=== PATIENT | female | born 1990 | race Caucasian/White ===

== ENCOUNTER 2018-05-16 10:51 | Outpatient (CLI) | payer BC, SELFPAY ==
[2018-05-16 12:31] LABS: ALT 15 U/L (12-78); AST 12 U/L (15-37); Albumin 3.9 g/dL (3.4-5.0); Alkaline Phosphatase 43 U/L (46-116); BUN 15 mg/dL (7-18); Bilirubin, Total 0.5 mg/dL (0.2-1.0); CREATININE 0.75 mg/dL (0.55-1.02); Calcium 9.1 mg/dL (8.5-10.1); Chloride 105 mmol/L (98-107); Cholesterol 233 mg/dL (50-200); Glucose 83 mg/dL (70-100); HDL Cholesterol 64 mg/dL (40-60); LDL CHOLESTEROL 154 mg/dL (<100); Potassium 4.3 mmol/L (3.5-5.1); Sodium 140 mmol/L (136-145); TSH (W/Ref FT4) 1.19 uIU/mL (0.358-3.74); Triglyceride 55 mg/dL (30-150)
== END 2018-05-16 11:11 ==
PROVIDERS: PCP Internal Medicine; Visit Provider Obstetrics & Gynecology Gynecology
DX: I10 Essential (primary) hypertension (principal); N92.6 Irregular menstruation, unspecified
CPT/HCPCS: 36415; 80053; 80061; 83721; 84443

== ENCOUNTER 2019-01-21 10:28 | Outpatient (CLI) | payer OTHER, SELFPAY ==
[2019-01-23 16:51] LABS: Antimullerian Hormone 2.9 ng/mL (0.9-9.5)
== END 2019-01-21 10:48 ==
PROVIDERS: PCP Internal Medicine; Visit Provider Obstetrics & Gynecology Gynecology
DX: N93.9 Abnormal uterine and vaginal bleeding, unspecified (principal)
CPT/HCPCS: 36415; 83520

== ENCOUNTER 2019-01-22 02:02 | Outpatient (CLI) | payer OTHER, SELFPAY ==
--- NOTE | 2019-01-22 14:46 | DI.US_ITS ---
EXAM: US THYROID CLINICAL HISTORY: enlarged thyroid, E04.9 TECHNIQUE: Ultrasound performed using standard protocol. COMPARISON: PELVIS TRANSVAG from 02/17/2016 FINDINGS: Ultrasound examination of the thyroid was performed according to the usual protocol. Thyroid parench yma appears mildly heterogeneous with no focal mass. Right thyroid lobe measures 42 x 17 x 18 millim eters and left thyroid lobe measures 39 x 15 x 13 millimeters. The isthmus is 4-5 millimeters in thi ckness. IMPRESSION: Mildly enlarged, mildly heterogeneous thyroid gland. No focal mass.
== END 2019-01-22 02:22 ==
PROVIDERS: PCP Internal Medicine; Visit Provider Obstetrics & Gynecology Gynecology
DX: E04.9 Nontoxic goiter, unspecified (principal)
CPT/HCPCS: 76536

== ENCOUNTER 2019-02-25 15:40 | Outpatient (CLI) | payer OTHER, SELFPAY ==
[2019-02-25 17:15] LABS: HCG Quant, Pregnancy 1389 mIU/mL (1-3)
== END 2019-02-25 16:00 ==
PROVIDERS: PCP Internal Medicine; Visit Provider Obstetrics & Gynecology Gynecology
DX: O20.0 Threatened abortion (principal)
CPT/HCPCS: 36415; 84702

== ENCOUNTER 2019-04-10 11:06 | Outpatient (REF) | payer OTHER, SELFPAY ==
[2019-04-10 12:53] LABS: *AMPHETAMINES SCREEN URINE Negative (Negative); *BARBITURATES SCREEN URINE Negative (Negative); *BENZODIAZEPINES SCREEN URINE Negative (Negative); Cannabinoids THC Negative (Negative); Cocaine Screen,Urine Negative (Negative); METHADONE URINE SCREEN Negative (Negative); OPIATES URINE SCREEN Negative (Negative)
[2019-04-10 12:56] LABS: Tricyclic Antidepressants Negative (Negative)
[2019-04-16 10:56] LABS: Buprenorphine Negative; Norbuprenorphine Negative
== END 2019-04-10 11:26 ==
LOC: LBN 11:06
PROVIDERS: PCP Internal Medicine; Visit Provider Advanced Practice Midwife
DX: Z34.91 Encounter for supervision of normal pregnancy, unspecified, first trimester (principal)
CPT/HCPCS: 80307; 87086

== ENCOUNTER 2019-04-15 11:41 | Outpatient (CLI) | payer OTHER, SELFPAY ==
[2019-04-15 12:23] LABS: Abs Immature Grans 0.02 k/cumm (0.0-0.09); Absolute Basophil Count 0.04 k/cumm (0.0-0.2); Absolute Eosinophil Count 0.09 k/cumm (0.0-0.7); Absolute Lymphocyte Count 1.65 k/cumm (1.2-3.4); Absolute Monocyte Count 0.64 k/cumm (0.11-0.7); Absolute Neutrophil Count 7.13 k/cumm (1.2-6.7); Basophils % 0.4; Eosinophils % 0.9; HCT 37.2 % (36.0-46.0); Immature Grans % 0.2 %; Lymphocytes % 17.2; Mean Corp. HGB Concentration 34.9 g/dL (32.0-36.0); Mean Corpuscular Hemoglobin 30.2 pg (27.0-33.0); Mean Corpuscular Volume 86.3 fL (80-95); Mean Platelet Volume 10.1 fL (8.0-11.0); Monocytes % 6.7; Neutrophils % 74.6; Platelet Count 235 x1000/uL (130-400); RBC 4.31 m/cumm (4.00-5.20); RBC Distribution Width 13.2 % (11.7-14.6); White Blood Cell Count 9.57 k/cumm (4.4-10.8)
[2019-04-16 09:33] LABS: Hepatitis B Surface Ag Negative (Negative)
[2019-04-16 11:08] LABS: HIV-1/2 Ag & Ab Screen Negative (Negative); Hepatitis C Ab w Rflx HCV PCR Negative (Negative)
[2019-04-16 12:02] LABS: Varicella IgG Antibody Positive (See Note)
[2019-04-16 12:46] LABS: Rubella IgG Ab (UVM) Negative (See Note)
[2019-04-16 15:05] LABS: Syphilis Total Ab w/Reflex Nonreactive (Nonreactive)
== END 2019-04-15 12:01 ==
PROVIDERS: PCP Internal Medicine; Visit Provider Obstetrics & Gynecology Gynecology
DX: Z34.91 Encounter for supervision of normal pregnancy, unspecified, first trimester (principal); Z11.4 Encounter for screening for human immunodeficiency virus [HIV]; Z11.59 Encounter for screening for other viral diseases; Z01.84 Encounter for antibody response examination
CPT/HCPCS: 36415; 86787; 86803; 86850; 86900; 86901; 87340; 87389; 85025; 86762; 86780

== ENCOUNTER 2019-05-08 11:31 | Outpatient (REF) | payer OTHER, SELFPAY ==
[2019-05-09 13:30] LABS: Chlamydia Result Negative (Negative); GC Result Negative (Negative)
== END 2019-05-08 11:51 ==
LOC: LBN 11:31
PROVIDERS: PCP Internal Medicine; Visit Provider Obstetrics & Gynecology
DX: Z34.92 Encounter for supervision of normal pregnancy, unspecified, second trimester (principal); Z11.3 Encounter for screening for infections with a predominantly sexual mode of transmission
CPT/HCPCS: 87491; 87591

== ENCOUNTER 2019-06-06 02:10 | Outpatient (CLI) | payer OTHER, SELFPAY ==
--- NOTE | 2019-06-06 09:45 | DI.US_ITS ---
EXAM: US OB 2-3 TRIMESTER CLINICAL HISTORY: , Z34.90, survey TECHNIQUE: Ultrasound performed using standard protocol. COMPARISON: US THYROID from 01/22/2019 FINDINGS: Ob ultrasound was performed utilizing 2nd trimester protocol. biometry is consistent with gest ational age 19 weeks 3 days and EDC of 10/28/2019. Placenta is posterior and there is no evidence of placenta previa. There is a normal quantity of amniotic fluid. anomaly screen is within normal limits as per the attached checklist. cardiac rate is 158 BPM. IMPRESSION: DATA REPOSITORY:
== END 2019-06-06 02:30 ==
PROVIDERS: PCP Internal Medicine; Visit Provider Obstetrics & Gynecology
DX: Z34.92 Encounter for supervision of normal pregnancy, unspecified, second trimester (principal); Z3A.19 19 weeks gestation of pregnancy
CPT/HCPCS: 76805

== ENCOUNTER 2019-08-08 13:56 | Outpatient (CLI) | payer OTHER, SELFPAY ==
[2019-08-08 14:59] LABS: HGB 12.2 g/dL (12.0-15.5); Mean Corp. HGB Concentration 33.9 g/dL (32.0-36.0); Mean Corpuscular Hemoglobin 30.7 pg (27.0-33.0); Mean Corpuscular Volume 90.5 fL (80-95); Mean Platelet Volume 10.3 fL (8.0-11.0); Platelet Count 244 x1000/uL (130-400); RBC 3.98 m/cumm (4.00-5.20); RBC Distribution Width 12.9 % (11.7-14.6); White Blood Cell Count 13.65 k/cumm (4.4-10.8)
[2019-08-08 15:12] LABS: Glucose,1 Hr (Glucola) 121 mg/dL (80-140)
== END 2019-08-08 14:16 ==
PROVIDERS: PCP Internal Medicine; Visit Provider Obstetrics & Gynecology Gynecology
DX: Z34.93 Encounter for supervision of normal pregnancy, unspecified, third trimester (principal)
CPT/HCPCS: 82950; 85027

== ENCOUNTER 2019-08-21 10:50 | Outpatient (REF) | payer OTHER, SELFPAY ==
[2019-08-21 11:11] LABS: Abs Immature Grans 0.12 k/cumm (0.0-0.09); Absolute Basophil Count 0.02 k/cumm (0.0-0.2); Absolute Eosinophil Count 0.06 k/cumm (0.0-0.7); Absolute Monocyte Count 0.72 k/cumm (0.11-0.7); Basophils % 0.2; Eosinophils % 0.5; HCT 33.7 % (36.0-46.0); HGB 11.5 g/dL (12.0-15.5); Immature Grans % 1.1 %; Lymphocytes % 13.4; Mean Corp. HGB Concentration 34.1 g/dL (32.0-36.0); Mean Corpuscular Hemoglobin 30.5 pg (27.0-33.0); Mean Corpuscular Volume 89.4 fL (80-95); Mean Platelet Volume 10.3 fL (8.0-11.0); Monocytes % 6.4; Neutrophils % 78.4; Platelet Count 227 x1000/uL (130-400); RBC 3.77 m/cumm (4.00-5.20); RBC Distribution Width 12.9 % (11.7-14.6); White Blood Cell Count 11.23 k/cumm (4.4-10.8)
[2019-08-21 11:24] LABS: ALT 29 U/L (14-59); AST 14 U/L (15-37); Albumin 2.7 g/dL (3.4-5.0); Alkaline Phosphatase 69 U/L (46-116); BUN 9 mg/dL (7-18); Bilirubin, Total 0.2 mg/dL (0.2-1.0); Calcium 8.9 mg/dL (8.5-10.1); Chloride 104 mmol/L (98-107); Glucose 117 mg/dL (74-106); Potassium 4.1 mmol/L (3.5-5.1); Sodium 136 mmol/L (136-145); Total Protein 6.2 g/dL (6.4-8.2)
[2019-08-21 12:51] LABS: PROTEIN 26.1 mg/dL
[2019-08-21 12:55] LABS: COMMENT (LAB VIEW ONLY) 184.06 mg/dL; Prot/Crea Ur Ratio 0.14
== END 2019-08-21 11:10 ==
LOC: LBN 10:50
PROVIDERS: PCP Internal Medicine; Visit Provider Obstetrics & Gynecology
DX: O13.3 Gestational [pregnancy-induced] hypertension without significant proteinuria, third trimester (principal)
CPT/HCPCS: 80053; 82565; 84156; 85025

== ENCOUNTER 2019-09-01 01:08 | Outpatient (CLI) | payer OTHER, SELFPAY ==
--- NOTE | 2019-09-01 13:00 | DI.US_ITS ---
EXAM: US OB DEANN WEIGHT CLINICAL HISTORY: Growth and DEANN, GESTATIONAL HTN, O13.9. TECHNIQUE: Transabdominal obstetrical ultrasound performed. COMPARISON: US US OB 2-3 TRIMESTER from 06/06/2019 FINDINGS: Transabdominal obstetrical ultrasound performed. FINDINGS: Number of fetuses: One. position: Vertex. heart rate: 168 bpm. Placental location: Posterior. No evidence of previa. BIOMETRIC DATA: BPD 82 millimeters, 30 2 weeks 6 days HC: 298 millimeters, 33 weeks 0 days AC: 288 millimeters, 32 weeks 5 days FL: 63 millimeters, 32 weeks 5 days EFW: 2050 grms 82 % Composite Age: 32 weeks 6 days EDC: 21 October 2019 Amniotic fluid index: 19.1 cm. Amount of fluid is within normal limits. ANATOMICAL SURVEY: Within normal limits. IMPRESSION: size measurements are slightly above the expected range. DATA REPOSITORY:
== END 2019-09-01 01:28 ==
PROVIDERS: PCP Internal Medicine; Visit Provider Obstetrics & Gynecology
DX: O13.3 Gestational [pregnancy-induced] hypertension without significant proteinuria, third trimester (principal); O26.843 Uterine size-date discrepancy, third trimester; Z3A.32 32 weeks gestation of pregnancy
CPT/HCPCS: 76816

== ENCOUNTER 2019-10-03 03:54 | Outpatient (CLI) | payer OTHER, SELFPAY ==
--- NOTE | 2019-10-03 07:30 | DI.US_ITS ---
EXAM: US OB DEANN WEIGHT CLINICAL HISTORY: Size greater than dates,Z34.90 TECHNIQUE: Ultrasound performed using standard protocol. COMPARISON: US US OB DEANN WEIGHT from 09/01/2019 FINDINGS: Ob ultrasound was performed utilizing 3rd trimester protocol. biometry is consistent with gest ational age of 37 weeks 0 days and an EDC October 23. The estimated weight is 3118 grams which is at the 80th percentile for predicted gestational ag e. Placenta is posterior with no placenta previa. There is visually a normal quantity of amniotic fluid and the DEANN is 19. Fetus is in cephalic presentation. heart rate is 147 BPM. IMPRESSION: DATA REPOSITORY:
== END 2019-10-03 04:14 ==
PROVIDERS: PCP Internal Medicine; Visit Provider Obstetrics & Gynecology
DX: O26.843 Uterine size-date discrepancy, third trimester
CPT/HCPCS: 76816

== ENCOUNTER 2019-10-03 15:12 | Outpatient (REF) | payer OTHER, SELFPAY ==
[2019-10-03 16:16] LABS: *AMPHETAMINES SCREEN URINE Negative (Negative); *BARBITURATES SCREEN URINE Negative (Negative); *BENZODIAZEPINES SCREEN URINE Negative (Negative); Cannabinoids THC Negative (Negative); Cocaine Screen,Urine Negative (Negative); METHADONE URINE SCREEN Negative (Negative); OPIATES URINE SCREEN Negative (Negative)
[2019-10-03 16:32] LABS: Tricyclic Antidepressants Negative (Negative)
[2019-10-10 12:51] LABS: Buprenorphine Negative; Norbuprenorphine Negative
== END 2019-10-03 15:32 ==
LOC: LBN 15:12
PROVIDERS: PCP Internal Medicine; Visit Provider Obstetrics & Gynecology Gynecology
DX: Z34.90 Encounter for supervision of normal pregnancy, unspecified, unspecified trimester (principal)
CPT/HCPCS: 80307; 87081

== ENCOUNTER 2019-10-09 10:44 | Outpatient (CLI) | payer OTHER, SELFPAY | END 2019-10-09 11:04 | PROVIDERS: PCP Internal Medicine; Visit Provider Obstetrics & Gynecology | DX: O13.3 Gestational [pregnancy-induced] hypertension without significant proteinuria, third trimester (principal); Z3A.36 36 weeks gestation of pregnancy | CPT/HCPCS: 59025 ==

== ENCOUNTER 2019-10-11 09:25 | Outpatient (CLI) | payer OTHER, SELFPAY | END 2019-10-11 09:45 | PROVIDERS: PCP Internal Medicine; Visit Provider Obstetrics & Gynecology | DX: O47.1 False labor at or after 37 completed weeks of gestation (principal); Z3A.37 37 weeks gestation of pregnancy | CPT/HCPCS: 59025 ==

== ENCOUNTER 2019-10-16 09:27 | Outpatient (CLI) | payer OTHER, SELFPAY | END 2019-10-16 09:47 | PROVIDERS: PCP Internal Medicine; Visit Provider Obstetrics & Gynecology | DX: O13.3 Gestational [pregnancy-induced] hypertension without significant proteinuria, third trimester (principal); Z3A.37 37 weeks gestation of pregnancy | CPT/HCPCS: 59025 ==

== ENCOUNTER 2019-10-17 15:24 | Inpatient (IN) | payer OTHER, MEDICAID, SELFPAY ==
--- NOTE | 2019-10-17 16:55 | W.PM.HP.N ---
Date of service: 10/17/19 Time of Service: 16:55 Assessment and Plan Assessment and plan (1) Gestational hypertension: Status: Acute (2) : Status: Acute Assessment and plan: 29-year-old 1 para 0 with intrauterine gestation at 38 weeks. Gestational hypertension. Will begin labor induction at term with cervical ripening followed by Pitocin augmentation. Will obtain baseline laboratory studies including CBC, CMP, urine protein creatinine ratio and COVID-19 testing. The risks and benefits of labor induction versus maintenance of were explained to the patient and consent was obtained. We do lengthy conversation regarding pain management during labor and appropriate therapies. My anticipation would be for cervical ripening through the evening tonight and Pitocin augmentation of labor as needed tomorrow. History of Present Illness History of Present Illness Chief Complaint: Labor induction due to gestational hypertension at 38 weeks Review of Systems Narrative: Denies signs or symptoms of preeclampsia. Good activity. Occasional irregular uterine contractions. Normal discomforts of . No vaginal bleeding or loss of fluid All systems reviewed & are unremarkable except as noted in HPI and below PFSH Medical History Abnormal uterine bleeding (AUB) (Chronic) 2013 Depo 2014 Diagnostic laparoscopy. Seasonique> OCPs>Mirena, 05/2016 Mirena removed. Continuous OCPs 09/2017 formulation of OCPs changed x2. prefers monthly withdrawal bleed. Acute pain in female pelvis (Resolved 02/22/16) Anxiety (Chronic 05/30/17) ASCUS with positive high risk HPV (Acute) Asthma (Resolved) does not need inhalers. Chronic pelvic pain in female (Chronic 03/17/16) Dysmenorrhea (Resolved) longstanding. Mirena IUD in place. Continues to have menses. Encounter for surveillance of contraceptive pills (Resolved 10/12/17) Endometriosis determined by laparoscopy (Chronic 01/27/16) 01/2015 Dr [facility]. Fulguration of stage ? 1 peritoneal endometriosis implants. 2017. operative laparoscopy. Fulguration of stage 1 lesions. 06/2016. Continuous active OCPs. Essential hypertension (Resolved 09/07/17) Fever of unknown origin (Resolved 08/21/17) 2016. Neg w/u for infectious etiology. Sx subsided after 1+ monthss. Gestational hypertension (Acute) Headache (Resolved) in pt's PMHx it is described as a migraine. Migraine without status migrainosus, not intractable (Chronic 01/27/16) Mild intermittent asthma without complication (Chronic 01/27/16) Pelvic pain (Resolved) 2014 had diagnostic laparoscopy - stage 1 endometriosis 02/2016 repeat diagnostic laparoscopy. Nl pelvis, nl fallopian tubes. 05/2016 repeat laparoscopy in [place]. Mild disease. Began continuous OCPs. Surgical History Appendectomy (Resolved 08/24/02) Diagnostic Laproscopy (Chronic 04/08/14) 04/08/14 Dr. Lee. Dx endometriosis. Review of op note suggests stage 1. Peritoneal implants fulgurated with argon laser. No adhesions. 03/09/16 [facility] Diagnostic laparoscopy for recurrent pelvic pain. Normal pevis. Normal, patent fallopian tubes. 06/29/16 Dr Mccauley laparoscopic presacral neurectomy, excision of peritoneum over L and R sidewall anterior and posterior cul de sac and bilateral ovarian suspension distal radial - ulna joint surgery (Resolved) 2009 proctoscopy (Resolved) 06/29/16 at time of Laparoscopic sacral nerve ablation, removal of peritoneal surfaces of L and R side wall and anterior and posterior cul de sac. Nl Proctoscopy. tympanostomy (Resolved) 2000. R ear tube removed 2011. 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 She has 1/2 sister, 1/2 brother. Female Reproductive History Menstrual Age of Menarche: 14 History History 1 Para Hx # Term Pregnancies 0 Multiple births Hx # Pregnancies Ectopic pregnancies AB induced Hx Number of Living Children 0 AB spontaneous Meds Home Medications and Allergies Home Medications Medication Instructions Recorded Confirmed Type prenat.vits,jonny,coh-[id number] 1 tab PO DAILY 03/07/19 10/16/19 History hydrocodone 5 mg-acetaminophen 325 1 tab PO Q6H PRN #10 tab MDD 4 10/16/19 10/16/19 Rx mg tablet Allergies Allergy/AdvReac Type Severity Reaction Status Date / Time sumatriptan [From Imitrex] AdvReac Severe Throat Unverified 10/16/19 09:48 swelling sumatriptan succinate AdvReac Severe Throat Unverified 10/16/19 09:48 [From Imitrex] swelling Exam Const General: cooperative and healthy appearing Nutritional Appearance: average body habitus Orientation: alert and oriented x3 Eyes General: appearance normal, both eyes and all related structures Resp Effort & Inspection: normal respiratory effort Cardio Rate: regular rate Rhythm: regular rhythm GI Inspection: normal to inspection Other: Gravid at term Manual OB Exam: dilated 1, effaced 50% and station Results Labs Result diagrams: 10/17/19 15:25 10/17/19 15:25 COVID-19 Screening Have you,or household,traveled outside [place] in last 14 days?: NO
[2019-10-17] MEDS: miSOPROStol 25 MCG TAB PO ×3 (17:24→21:34)
[2019-10-17 17:44] LABS: Absolute Basophil Count 0.03 10^3/uL (0.0-0.2); Absolute Eosinophil Count 0.08 10^3/uL (0.0-0.7); Absolute Lymphocyte Count 1.52 10^3/uL (1.2-3.4); Absolute Monocyte Count 0.71 10^3/uL (0.1-0.8); Absolute Neutrophil Count 6.73 10^3/uL (1.2-6.7); Basophils % 0.3; Eosinophils % 0.9; HCT 33.3 % (36.0-46.0); HGB 10.8 g/dL (11.2-15.7); Immature Grans % 1.1; Lymphocytes % 16.6; MCH 27.5 pg (27.0-33.0); MCHC 32.4 % (32.0-36.0); MCV 84.7 fL (80-95); MPV 11.2 fL (8.0-11.0); Monocytes % 7.7; Neutrophils % 73.4; Platelet Count 223 10^3/uL (130-400); RBC 3.93 10^6/uL (3.93-5.22); RDW 13.5 % (11.7-14.6); RDW-SD 41.9 fL; WBC 9.17 10^3/uL (4.4-10.8)
[2019-10-17 17:57] LABS: ALT 20 U/L (14-59); AST 16 U/L (15-37); Albumin 2.6 g/dL (3.4-5.0); Alkaline Phosphatase 120 U/L (46-116); Anion Gap 11.6 mmol/L (3-11); BUN 8 mg/dL (7-18); Bilirubin, Total 0.3 mg/dL (0.2-1.0); CO2 21.4 mmol/L (21.0-32.0); CREATININE 0.63 mg/dL (0.55-1.02); Calcium 8.8 mg/dL (8.5-10.1); Chloride 102 mmol/L (98-107); Glucose 93 mg/dL (74-106); Sodium 135 mmol/L (136-145); Total Protein 6.5 g/dL (6.4-8.2)
[2019-10-17 18:05] LABS: PROTEIN 41.9 mg/dL
[2019-10-17 18:09] LABS: COMMENT (LAB VIEW ONLY) 162.35 mg/dL; Prot/Crea Ur Ratio 0.25
[2019-10-17] MEDS: Zolpidem 5 MG TAB 10 MG PO (21:34)
[2019-10-18] MEDS: Lactated Ringers 1,000 ML 200 ML IV (06:33)
[2019-10-18] MEDS: Normal Saline Flush 10 ML SYR IVP ×2 (06:35→09:40)
[2019-10-18] MEDS: Oxytocin/Normal Saline 30 UNITS/500 ML BAG IV (06:35)
[2019-10-18 08:54] LABS: COVID-19 RT-PCR UVMMC Result Negative (Negative)
--- NOTE | 2019-10-18 09:42 | W.PM.PROGNOT ---
Date of Service Date of service: 10/18/19 Time of Service: 09:42 Assessment and Plan Assessment and plan (1) Gestational hypertension: Status: Acute (2) : Status: Acute Assessment and plan: Continue labor induction. Pain control as needed. Anticipate Subjective Subjective Interval history since last seen: Doing well. Some discomfort with UC's Barriga balloon placed for cervical ripening. Pain control options discussed Exam Narrative Exam Narrative: Doing well Resp Effort & Inspection: normal respiratory effort Cardio Rate: regular rate Manual OB Exam: dilated 1, effaced 75%, station and other (Folet baloon inserted with ease) Amniotic Fluid: bloody Objective Objective Clinical Data: Abnormal lab results 10/17/19 10/17/19 Range/Units 17:30 17:30 Hgb 10.8 L (11.2-15.7) g/dL Hct 33.3 L (36.0-46.0) % MPV 11.2 H (8.0-11.0) fL Absolute Neutrophils 6.73 H (1.2-6.7) 10^3/uL Sodium 135 L (136-145) mmol/L Anion Gap 11.6 H (3-11) mmol/L Alkaline Phosphatase 120 H (46-116) U/L Albumin 2.6 L (3.4-5.0) g/dL Intake & Output 10/17/19 10/17/19 10/18/19 11:59 23:59 11:59 Intake Total 290 / 290 Balance 290 / 290 Weight 198 lb Intake: IV 290 / 290 Laboratory Results WBC 9.17 10^3/uL (4.4-10.8) 10/17/19 17:30 RBC 3.93 10^6/uL (3.93-5.22) 10/17/19 17:30 Hgb 10.8 g/dL (11.2-15.7) L 10/17/19 17:30 Hct 33.3 % (36.0-46.0) L 10/17/19 17:30 MCV 84.7 fL (80-95) 10/17/19 17:30 MCH 27.5 pg (27.0-33.0) 10/17/19 17:30 MCHC 32.4 % (32.0-36.0) 10/17/19 17:30 RDW 13.5 % (11.7-14.6) 10/17/19 17:30 Plt Count 223 10^3/uL (130-400) 10/17/19 17:30 MPV 11.2 fL (8.0-11.0) H 10/17/19 17:30 Immature Gran % 1.1 10/17/19 17:30 Neutrophils % 73.4 10/17/19 17:30 Lymphocytes % 16.6 10/17/19 17:30 Monocytes % 7.7 10/17/19 17:30 Eosinophils % 0.9 10/17/19 17:30 Basophils % 0.3 10/17/19 17:30 Absolute Neutrophils 6.73 10^3/uL (1.2-6.7) H 10/17/19 17:30 Absolute Lymphocytes 1.52 10^3/uL (1.2-3.4) 10/17/19 17:30 Absolute Monocytes 0.71 10^3/uL (0.1-0.8) 10/17/19 17:30 Absolute Eosinophils 0.08 10^3/uL (0.0-0.7) 10/17/19 17:30 Absolute Basophils 0.03 10^3/uL (0.0-0.2) 10/17/19 17:30 Sodium 135 mmol/L (136-145) L 10/17/19 17:30 Potassium 4.0 mmol/L (3.5-5.1) 10/17/19 17:30 Chloride 102 mmol/L (98-107) 10/17/19 17:30 Carbon Dioxide 21.4 mmol/L (21.0-32.0) 10/17/19 17:30 Anion Gap 11.6 mmol/L (3-11) H 10/17/19 17:30 BUN 8 mg/dL (7-18) 10/17/19 17:30 Creatinine 0.63 mg/dL (0.55-1.02) 10/17/19 17:30 Estimated GFR/1.73 m2 >= 60.00 (mL/min/1.73m2) 10/17/19 17:30 Glucose 93 mg/dL (74-106) 10/17/19 17:30 Calcium 8.8 mg/dL (8.5-10.1) 10/17/19 17:30 Total Bilirubin 0.3 mg/dL (0.2-1.0) 10/17/19 17:30 AST 16 U/L (15-37) 10/17/19 17:30 ALT 20 U/L (14-59) 10/17/19 17:30 Alkaline Phosphatase 120 U/L (46-116) H 10/17/19 17:30 Total Protein 6.5 g/dL (6.4-8.2) 10/17/19 17:30 Albumin 2.6 g/dL (3.4-5.0) L 10/17/19 17:30 Ur Random Creatinine 162.35 mg/dL 10/17/19 17:00 U Random Total Protein 41.9 mg/dL 10/17/19 17:00 U [place] Prot/Creat Ratio 0.25 10/17/19 17:00 COVID-19 PCR Negative (Negative) 10/17/19 17:00 Nasopharyn COVID-19 PCR Not Applicable 10/17/19 17:00 Ref Test Perform Site [facility] lab 10/17/19 17:00 Patient ABO/Rh A Positive 10/17/19 17:30 Antibody Screen Negative 10/17/19 17:30
--- NOTE | 2019-10-18 12:15 | PGE_ITS ---
Date of Service Date of service: 10/18/19 Time of Service: 12:16 Assessment and Plan Assessment and plan (1) Normal labor: Status: Acute Assessment and plan: Continue present management Subjective Subjective Interval history since last seen: Contractions more painful and regular Exam Manual OB Exam: dilated 4, effaced 75% and station -2 Amniotic Fluid: clear Other: SROM, clear fluid Objective Objective Clinical Data: Abnormal lab results 10/17/19 10/17/19 Range/Units 17:30 17:30 Hgb 10.8 L (11.2-15.7) g/dL Hct 33.3 L (36.0-46.0) % MPV 11.2 H (8.0-11.0) fL Absolute Neutrophils 6.73 H (1.2-6.7) 10^3/uL Sodium 135 L (136-145) mmol/L Anion Gap 11.6 H (3-11) mmol/L Alkaline Phosphatase 120 H (46-116) U/L Albumin 2.6 L (3.4-5.0) g/dL Intake & Output 10/17/19 10/18/19 10/18/19 23:59 11:59 23:59 Intake Total 290 / 290 Balance 290 / 290 Weight 198 lb Intake: IV 290 / 290 Laboratory Results WBC 9.17 10^3/uL (4.4-10.8) 10/17/19 17:30 RBC 3.93 10^6/uL (3.93-5.22) 10/17/19 17:30 Hgb 10.8 g/dL (11.2-15.7) L 10/17/19 17:30 Hct 33.3 % (36.0-46.0) L 10/17/19 17:30 MCV 84.7 fL (80-95) 10/17/19 17:30 MCH 27.5 pg (27.0-33.0) 10/17/19 17:30 MCHC 32.4 % (32.0-36.0) 10/17/19 17:30 RDW 13.5 % (11.7-14.6) 10/17/19 17:30 Plt Count 223 10^3/uL (130-400) 10/17/19 17:30 MPV 11.2 fL (8.0-11.0) H 10/17/19 17:30 Immature Gran % 1.1 10/17/19 17:30 Neutrophils % 73.4 10/17/19 17:30 Lymphocytes % 16.6 10/17/19 17:30 Monocytes % 7.7 10/17/19 17:30 Eosinophils % 0.9 10/17/19 17:30 Basophils % 0.3 10/17/19 17:30 Absolute Neutrophils 6.73 10^3/uL (1.2-6.7) H 10/17/19 17:30 Absolute Lymphocytes 1.52 10^3/uL (1.2-3.4) 10/17/19 17:30 Absolute Monocytes 0.71 10^3/uL (0.1-0.8) 10/17/19 17:30 Absolute Eosinophils 0.08 10^3/uL (0.0-0.7) 10/17/19 17:30 Absolute Basophils 0.03 10^3/uL (0.0-0.2) 10/17/19 17:30 Sodium 135 mmol/L (136-145) L 10/17/19 17:30 Potassium 4.0 mmol/L (3.5-5.1) 10/17/19 17:30 Chloride 102 mmol/L (98-107) 10/17/19 17:30 Carbon Dioxide 21.4 mmol/L (21.0-32.0) 10/17/19 17:30 Anion Gap 11.6 mmol/L (3-11) H 10/17/19 17:30 BUN 8 mg/dL (7-18) 10/17/19 17:30 Creatinine 0.63 mg/dL (0.55-1.02) 10/17/19 17:30 Estimated GFR/1.73 m2 >= 60.00 (mL/min/1.73m2) 10/17/19 17:30 Glucose 93 mg/dL (74-106) 10/17/19 17:30 Calcium 8.8 mg/dL (8.5-10.1) 10/17/19 17:30 Total Bilirubin 0.3 mg/dL (0.2-1.0) 10/17/19 17:30 AST 16 U/L (15-37) 10/17/19 17:30 ALT 20 U/L (14-59) 10/17/19 17:30 Alkaline Phosphatase 120 U/L (46-116) H 10/17/19 17:30 Total Protein 6.5 g/dL (6.4-8.2) 10/17/19 17:30 Albumin 2.6 g/dL (3.4-5.0) L 10/17/19 17:30 Ur Random Creatinine 162.35 mg/dL 10/17/19 17:00 U Random Total Protein 41.9 mg/dL 10/17/19 17:00 U [place] Prot/Creat Ratio 0.25 10/17/19 17:00 COVID-19 PCR Negative (Negative) 10/17/19 17:00 Nasopharyn COVID-19 PCR Not Applicable 10/17/19 17:00 Ref Test Perform Site [facility] lab 10/17/19 17:00 Patient ABO/Rh A Positive 10/17/19 17:30 Antibody Screen Negative 10/17/19 17:30
--- NOTE | 2019-10-18 15:55 | W.PM.PROGNOT ---
Date of Service Date of service: 10/18/19 Time of Service: 15:55 Assessment and Plan Assessment and plan (1) Normal labor: Status: Acute Assessment and plan: continue pitocin. Pain control as needed Expectant management Subjective Subjective Interval history since last seen: More uncomfortable. Has been ambulating Exam Manual OB Exam: dilated 6, effaced 75% and other (-1) Amniotic Fluid: clear Objective Objective Clinical Data: Abnormal lab results 10/17/19 10/17/19 Range/Units 17:30 17:30 Hgb 10.8 L (11.2-15.7) g/dL Hct 33.3 L (36.0-46.0) % MPV 11.2 H (8.0-11.0) fL Absolute Neutrophils 6.73 H (1.2-6.7) 10^3/uL Sodium 135 L (136-145) mmol/L Anion Gap 11.6 H (3-11) mmol/L Alkaline Phosphatase 120 H (46-116) U/L Albumin 2.6 L (3.4-5.0) g/dL Intake & Output 10/17/19 10/18/19 10/18/19 23:59 11:59 23:59 Intake Total 290 / 290 Balance 290 / 290 Weight 198 lb Intake: IV 290 / 290 Laboratory Results WBC 9.17 10^3/uL (4.4-10.8) 10/17/19 17:30 RBC 3.93 10^6/uL (3.93-5.22) 10/17/19 17:30 Hgb 10.8 g/dL (11.2-15.7) L 10/17/19 17:30 Hct 33.3 % (36.0-46.0) L 10/17/19 17:30 MCV 84.7 fL (80-95) 10/17/19 17:30 MCH 27.5 pg (27.0-33.0) 10/17/19 17:30 MCHC 32.4 % (32.0-36.0) 10/17/19 17:30 RDW 13.5 % (11.7-14.6) 10/17/19 17:30 Plt Count 223 10^3/uL (130-400) 10/17/19 17:30 MPV 11.2 fL (8.0-11.0) H 10/17/19 17:30 Immature Gran % 1.1 10/17/19 17:30 Neutrophils % 73.4 10/17/19 17:30 Lymphocytes % 16.6 10/17/19 17:30 Monocytes % 7.7 10/17/19 17:30 Eosinophils % 0.9 10/17/19 17:30 Basophils % 0.3 10/17/19 17:30 Absolute Neutrophils 6.73 10^3/uL (1.2-6.7) H 10/17/19 17:30 Absolute Lymphocytes 1.52 10^3/uL (1.2-3.4) 10/17/19 17:30 Absolute Monocytes 0.71 10^3/uL (0.1-0.8) 10/17/19 17: Absolute Eosinophils 0.08 10^3/uL (0.0-0.7) 10/17/19 17:30 Absolute Basophils 0.03 10^3/uL (0.0-0.2) 10/17/19 17:30 Sodium 135 mmol/L (136-145) L 10/17/19 17:30 Potassium 4.0 mmol/L (3.5-5.1) 10/17/19 17:30 Chloride 102 mmol/L (98-107) 10/17/19 17:30 Carbon Dioxide 21.4 mmol/L (21.0-32.0) 10/17/19 17:30 Anion Gap 11.6 mmol/L (3-11) H 10/17/19 17:30 BUN 8 mg/dL (7-18) 10/17/19 17:30 Creatinine 0.63 mg/dL (0.55-1.02) 10/17/19 17:30 Estimated GFR/1.73 m2 >= 60.00 (mL/min/1.73m2) 10/17/19 17:30 Glucose 93 mg/dL (74-106) 10/17/19 17:30 Calcium 8.8 mg/dL (8.5-10.1) 10/17/19 17:30 Total Bilirubin 0.3 mg/dL (0.2-1.0) 10/17/19 17:30 AST 16 U/L (15-37) 10/17/19 17:30 ALT 20 U/L (14-59) 10/17/19 17:30 Alkaline Phosphatase 120 U/L (46-116) H 10/17/19 17:30 Total Protein 6.5 g/dL (6.4-8.2) 10/17/19 17:30 Albumin 2.6 g/dL (3.4-5.0) L 10/17/19 17:30 Ur Random Creatinine 162.35 mg/dL 10/17/19 17:00 U Random Total Protein 41.9 mg/dL 10/17/19 17:00 U [place] Prot/Creat Ratio 0.25 10/17/19 17:00 COVID-19 PCR Negative (Negative) 10/17/19 17:00 Nasopharyn COVID-19 PCR Not Applicable 10/17/19 17:00 Ref Test Perform Site [facility] lab 10/17/19 17:00 Patient ABO/Rh A Positive 10/17/19 17:30 Antibody Screen Negative 10/17/19 17:30
[2019-10-18] MEDS: FentaNYL/ROPIvacaine 2 mcg/ml and 0.1% 200 ML CADD Cassette EP (16:55)
--- NOTE | 2019-10-18 21:43 | W.PM.OP ---
Date of service: 10/18/19 Time of Service: 21:43 Operative Note Operative Note DATE OF PROCEDURE: 10/18/19 PRE-OP DIAGNOSIS: Term, Gestational Hypertension POST-OP DIAGNOSIS: same PROCEDURE: after labor induction SURGEON: Ariadne Barriga ANESTHESIA: epidural ESTIMATED BLOOD LOSS: 200 PATHOLOGY: none sent COMPLICATIONS: None Patient was transported to: floor Patient's condition: stable Implants: none Findings: after 2 hour second stage and normal course of labor. Viable female infant with APGARS 8 and 9. Procedure Description: as above. 2nd degree midline laceration repaired in the usual fashion and hemostatic
[2019-10-19] MEDS: Acetaminophen 325 MG TAB 650 MG PO ×5 (00:09→23:14)
[2019-10-19] MEDS: Ibuprofen 600 MG TAB PO ×4 (00:09→20:02)
--- NOTE | 2019-10-19 05:32 | PGE_ITS ---
Date of Service Date of service: 10/19/19 Time of Service: 05:32 Assessment and Plan Assessment and plan (1) Normal spontaneous vaginal delivery: Status: Acute Assessment and plan: day #1 status post normal spontaneous vaginal delivery after induction of labor for gestational hypertension at 38 weeks. Uncomplicated care point. Continue routine care. Ambulate today, assistance. (2) Gestational hypertension: Status: Acute Subjective Subjective Interval history since last seen: Patient is seen this morning, postoperative day #1. She is doing well. She is breast-feeding. Baby has latched. She has not had a significant amount of sleep. Pain is well controlled with Motrin and ice pack. Lochia is physiologic. Exam Narrative Exam Narrative: In general she is alert and oriented no acute distress vital signs are stable blood pressure remains on occasion mildly elevated without signs of preeclampsia Eyes General: appearance normal, both eyes and all related structures Resp Effort & Inspection: normal respiratory effort Cardio Rate: regular rate Other: Abdomen soft, uterus firm below the umbilicus Extrem General: normal to inspection and no calf tenderness Other: 1+ lower extremity edema bilaterally. Objective Objective Clinical Data: Vital Signs Pain Level 8 10/19/19 00:09 Intake & Output 10/18/19 10/18/19 10/19/19 11:59 23:59 11:59 Intake Total 290 / 290 Balance 290 / 290 Intake: IV 290 / 290 Laboratory Results WBC 9.17 10^3/uL (4.4-10.8) 10/17/19 17:30 RBC 3.93 10^6/uL (3.93-5.22) 10/17/19 17:30 Hgb 10.8 g/dL (11.2-15.7) L 10/17/19 17:30 Hct 33.3 % (36.0-46.0) L 10/17/19 17:30 MCV 84.7 fL (80-95) 10/17/19 17:30 MCH 27.5 pg (27.0-33.0) 10/17/19 17:30 MCHC 32.4 % (32.0-36.0) 10/17/19 17:30 RDW 13.5 % (11.7-14.6) 10/17/19 17:30 Plt Count 223 10^3/uL (130-400) 10/17/19 17:30 MPV 11.2 fL (8.0-11.0) H 10/17/19 17:30 Immature Gran % 1.1 10/17/19 17:30 Neutrophils % 73.4 10/17/19 17:30 Lymphocytes % 16.6 10/17/19 17:30 Monocytes % 7.7 10/17/19 17:30 Eosinophils % 0.9 10/17/19 17:30 Basophils % 0.3 10/17/19 17:30 Absolute Neutrophils 6.73 10^3/uL (1.2-6.7) H 10/17/19 17:30 Absolute Lymphocytes 1.52 10^3/uL (1.2-3.4) 10/17/19 17:30 Absolute Monocytes 0.71 10^3/uL (0.1-0.8) 10/17/19 17:30 Absolute Eosinophils 0.08 10^3/uL (0.0-0.7) 10/17/19 17:30 Absolute Basophils 0.03 10^3/uL (0.0-0.2) 10/17/19 17:30 Sodium 135 mmol/L (136-145) L 10/17/19 17:30 Potassium 4.0 mmol/L (3.5-5.1) 10/17/19 17:30 Chloride 102 mmol/L (98-107) 10/17/19 17:30 Carbon Dioxide 21.4 mmol/L (21.0-32.0) 10/17/19 17:30 Anion Gap 11.6 mmol/L (3-11) H 10/17/19 17:30 BUN 8 mg/dL (7-18) 10/17/19 17:30 Creatinine 0.63 mg/dL (0.55-1.02) 10/17/19 17:30 Estimated GFR/1.73 m2 >= 60.00 (mL/min/1.73m2) 10/17/19 17:30 Glucose 93 mg/dL (74-106) 10/17/19 17:30 Calcium 8.8 mg/dL (8.5-10.1) 10/17/19 17:30 Total Bilirubin 0.3 mg/dL (0.2-1.0) 10/17/19 17:30 AST 16 U/L (15-37) 10/17/19 17:30 ALT 20 U/L (14-59) 10/17/19 17:30 Alkaline Phosphatase 120 U/L (46-116) H 10/17/19 17:30 Total Protein 6.5 g/dL (6.4-8.2) 10/17/19 17:30 Albumin 2.6 g/dL (3.4-5.0) L 10/17/19 17:30 Ur Random Creatinine 162.35 mg/dL 10/17/19 17:00 U Random Total Protein 41.9 mg/dL 10/17/19 17:00 U [place] Prot/Creat Ratio 0.25 10/17/19 17:00 COVID-19 PCR Negative (Negative) 10/17/19 17:00 Nasopharyn COVID-19 PCR Not Applicable 10/17/19 17:00 Ref Test Perform Site [facility] lab 10/17/19 17:00 Patient ABO/Rh A Positive 10/17/19 17:30 Antibody Screen Negative 10/17/19 17:30
[2019-10-19] MEDS: Docusate Sodium 100 MG CAP PO (17:09)
[2019-10-20] MEDS: Ibuprofen 600 MG TAB PO ×2 (01:09→12:53)
[2019-10-20] MEDS: Acetaminophen 325 MG TAB 650 MG PO ×3 (03:38→14:27)
[2019-10-20] MEDS: Docusate Sodium 100 MG CAP PO (08:06)
--- NOTE | 2019-10-20 08:10 | PGE_ITS ---
Date of Service Date of service: 10/20/19 Time of Service: 08:10 Assessment and Plan Assessment and plan (1) Normal spontaneous vaginal delivery: Status: Acute (2) Gestational hypertension: Status: Acute Subjective Subjective Patient reports: feels better, pain is less, tolerating a regular diet and flatus Interval history since last seen: Physiologic lochia Exam Const General: cooperative and healthy appearing Orientation: oriented x3 Resp Effort & Inspection: normal respiratory effort Cardio Rate: regular rate Rhythm: regular rhythm Other: Uterus firm below the umbilicus per nursing Extrem Other: 1+ lower extremity edema no calf tenderness no signs of DVT Objective Objective Clinical Data: Vital Signs Pain Level 4 10/20/19 08:07 Intake & Output 10/19/19 10/19/19 10/20/19 11:59 23:59 11:59 Intake Total 710 / 710 Balance 710 / 710 Intake: IV 710 / 710 Laboratory Results WBC 9.17 10^3/uL (4.4-10.8) 10/17/19 17:30 RBC 3.93 10^6/uL (3.93-5.22) 10/17/19 17:30 Hgb 10.8 g/dL (11.2-15.7) L 10/17/19 17:30 Hct 33.3 % (36.0-46.0) L 10/17/19 17:30 MCV 84.7 fL (80-95) 10/17/19 17:30 MCH 27.5 pg (27.0-33.0) 10/17/19 17:30 MCHC 32.4 % (32.0-36.0) 10/17/19 17:30 RDW 13.5 % (11.7-14.6) 10/17/19 17:30 Plt Count 223 10^3/uL (130-400) 10/17/19 17:30 MPV 11.2 fL (8.0-11.0) H 10/17/19 17:30 Immature Gran % 1.1 10/17/19 17:30 Neutrophils % 73.4 10/17/19 17:30 Lymphocytes % 16.6 10/17/19 17:30 Monocytes % 7.7 10/17/19 17:30 Eosinophils % 0.9 10/17/19 17:30 Basophils % 0.3 10/17/19 17:30 Absolute Neutrophils 6.73 10^3/uL (1.2-6.7) H 10/17/19 17:30 Absolute Lymphocytes 1.52 10^3/uL (1.2-3.4) 10/17/19 17:30 Absolute Monocytes 0.71 10^3/uL (0.1-0.8) 10/17/19 17:30 Absolute Eosinophils 0.08 10^3/uL (0.0-0.7) 10/17/19 17:30 Absolute Basophils 0.03 10^3/uL (0.0-0.2) 10/17/19 17:30 Sodium 135 mmol/L (136-145) L 10/17/19 17:30 Potassium 4.0 mmol/L (3.5-5.1) 10/17/19 17:30 Chloride 102 mmol/L (98-107) 10/17/19 17:30 Carbon Dioxide 21.4 mmol/L (21.0-32.0) 10/17/19 17:30 Anion Gap 11.6 mmol/L (3-11) H 10/17/19 17:30 BUN 8 mg/dL (7-18) 10/17/19 17:30 Creatinine 0.63 mg/dL (0.55-1.02) 10/17/19 17:30 Estimated GFR/1.73 m2 >= 60.00 (mL/min/1.73m2) 10/17/19 17:30 Glucose 93 mg/dL (74-106) 10/17/19 17:30 Calcium 8.8 mg/dL (8.5-10.1) 10/17/19 17:30 Total Bilirubin 0.3 mg/dL (0.2-1.0) 10/17/19 17:30 AST 16 U/L (15-37) 10/17/19 17:30 ALT 20 U/L (14-59) 10/17/19 17:30 Alkaline Phosphatase 120 U/L (46-116) H 10/17/19 17:30 Total Protein 6.5 g/dL (6.4-8.2) 10/17/19 17:30 Albumin 2.6 g/dL (3.4-5.0) L 10/17/19 17:30 Ur Random Creatinine 162.35 mg/dL 10/17/19 17:00 U Random Total Protein 41.9 mg/dL 10/17/19 17:00 U [place] Prot/Creat Ratio 0.25 10/17/19 17:00 COVID-19 PCR Negative (Negative) 10/17/19 17:00 Nasopharyn COVID-19 PCR Not Applicable 10/17/19 17:00 Ref Test Perform Site [facility] lab 10/17/19 17:00 Patient ABO/Rh A Positive 10/17/19 17:30 Antibody Screen Negative 10/17/19 17:30
--- NOTE | 2019-10-20 08:15 | DSE_ITS ---
Date of service: 10/20/19 Time of Service: 08:15 DS: Diagnosis Discharge Diagnosis (1) Normal spontaneous vaginal delivery: Status: Acute (2) Gestational hypertension: Status: Acute Discharge Plan Disposition Patient Disposition: HOME Condition: Stable Discharge Details Reason For Visit: GESTATIONAL HYPERTENSION Admit Date/Time: 10/17/19 15:24 Admit Provider: Roberta Barriga Attending Provider: Roberta Barriga Primary Care Provider: Jacquelin Valencia Hospital Course Hospital Course: Patient was admitted for labor induction at 38 weeks due to gestational hypertension. She received Cytotec for cervical ripening and subsequent Pitocin and Barriga balloon for cervical dilation and augmentation. She had spontaneous rupture of membranes for clear fluid went on to the point that she was completely dilated after epidural was placed. She delivered a viable female with Apgars of 8 and 9. She had an uncomplicated care course and was discharged home day #2. Home Meds and New Rx's Prescriptions: New ibuprofen [IBU] 800 mg tablet 800 mg PO Q8H Qty: 30 RF: 0 Continued prenat.vits,jonny,[id number]-wryc-mapcz Tablet 1 tab PO DAILY RF: 0 Discontinued hydrocodone-acetaminophen [[place]] 5-325 mg tablet 1 tab PO Q6H MDD 4 PRN (Reason: pain) Qty: 10 RF: 0 Discharge Instructions Instructions: Vaginal Delivery (DC) Activity:: Activity as Tolerated Equipment/Supplies:: No Equipment Needed Diet:: Normal Diet Discharge Orders Discharge Orders: Discharge Order (Routine); Ordered 10/20/19 Ordered By: Roberta Barriga DS: Summary Summary Time spent discussing smoking cessation with patient: 3 to 10 minutes Status at Discharge Functional status at discharge: independent ambulation Overall status at discharge: patient is back to baseline Mental Status: mental status grossly normal Speech and Movement: speech and movement normal Mood: congruent mood Affect: normal affect Time Spent with Patient providing and/or coordinating discharge services: Less than 30 minutes Exam Narrative Exam Narrative: See examination from progress note this morning Psych Mental Status: mental status grossly normal Speech and Movement: speech and movement normal Mood: congruent mood Affect: normal affect DS: Data Vitals/I&O Vitals and I&O: Vital Signs Pain Level 4 10/20/19 08:07 Intake & Output 10/19/19 10/19/19 10/20/19 11:59 23:59 11:59 Intake Total 710 / 710 Balance 710 / 710 Intake: IV 710 / 710 REPLACED BY [facility] Medical History Abnormal uterine bleeding (AUB) (Chronic) 2013 Depo 2014 Diagnostic laparoscopy. Seasonique> OCPs>Mirena, 05/2016 Mirena removed. Continuous OCPs 09/2017 formulation of OCPs changed x2. prefers monthly withdrawal bleed. Acute pain in female pelvis (Resolved 02/22/16) Anxiety (Chronic 05/30/17) ASCUS with positive high risk HPV (Acute) Asthma (Resolved) does not need inhalers. Chronic pelvic pain in female (Chronic 03/17/16) Dysmenorrhea (Resolved) longstanding. Mirena IUD in place. Continues to have menses. Encounter for surveillance of contraceptive pills (Resolved 10/12/17) Endometriosis determined by laparoscopy (Chronic 01/27/16) 01/2015 Dr Lee at [facility]. Fulguration of stage ? 1 peritoneal endometriosis implants. 2017. operative laparoscopy. Fulguration of stage 1 lesions. 06/2016. Continuous active OCPs. Essential hypertension (Resolved 09/07/17) Fever of unknown origin (Resolved 08/21/17) 2016. Neg w/u for infectious etiology. Sx subsided after 1+ monthss. Gestational hypertension (Acute) Headache (Resolved) in pt's PMHx it is described as a migraine. Migraine without status migrainosus, not intractable (Chronic 01/27/16) Mild intermittent asthma without complication (Chronic 01/27/16) Normal labor (Acute) Normal spontaneous vaginal delivery (Acute) Pelvic pain (Resolved) 2014 had diagnostic laparoscopy - stage 1 endometriosis 02/2016 repeat diagnostic laparoscopy. Nl pelvis, nl fallopian tubes. 05/2016 repeat laparoscopy in [place]. Mild disease. Began continuous OCPs. Surgical History Appendectomy (Resolved 08/24/02) Diagnostic Laproscopy (Chronic 04/08/14) 04/08/14 Dr. Lee. Dx endometriosis. Review of op note suggests stage 1. Peritoneal implants fulgurated with argon laser. No adhesions. 03/09/16 [facility] Diagnostic laparoscopy for recurrent pelvic pain. Normal pevis. Normal, patent fallopian tubes. 06/29/16 Dr Mccauley laparoscopic presacral neurectomy, excision of peritoneum over L and R sidewall anterior and posterior cul de sac and bilateral ovarian suspension distal radial - ulna joint surgery (Resolved) 2009 proctoscopy (Resolved) 06/29/16 at time of Laparoscopic sacral nerve ablation, removal of peritoneal surfaces of L and R side wall and anterior and posterior cul de sac. Nl Proctoscopy. tympanostomy (Resolved) 2000. R ear tube removed 2011. 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 She has 1/2 sister, 1/2 brother. Female Reproductive History Menstrual Age of Menarche: 14 History History 1 Para Hx # Term Pregnancies 0 Multiple births Hx # Pregnancies Ectopic pregnancies AB induced Hx Number of Living Children 0 AB spontaneous
[2019-10-20] MEDS: Hamamelis Leaf/Glycerin 100 EACH BOX PR (09:33)
[2019-10-20] MEDS: Measles, Mumps, & Rubella Vaccine 0.5 ML VIAL SC (09:34)
== END 2019-10-20 14:40 | disposition home or self-care (01) | DRG 807 ==
PROVIDERS: Admitting Provider Obstetrics & Gynecology; PCP Internal Medicine; Visit Provider Obstetrics & Gynecology
DX: O70.1 Second degree perineal laceration during delivery (principal); Z37.0 Single live birth; O13.4 Gestational [pregnancy-induced] hypertension without significant proteinuria, complicating childbirth; O12.05 Gestational edema, complicating the puerperium; Z3A.38 38 weeks gestation of pregnancy; Z03.818 Encounter for observation for suspected exposure to other biological agents ruled out; O99.344 Other mental disorders complicating childbirth; F41.9 Anxiety disorder, unspecified
CPT/HCPCS: 80053; 86850; 86900; 86901; 99223; 99232; 99238; U0003; 82565; 84156; 85025; J3490

== ENCOUNTER 2020-08-19 11:04 | Outpatient (REF) | payer MEDICAID, SELFPAY ==
--- NOTE | 2020-08-19 10:45 | PAPFT_PTH ---
PATIENT: Sheila Douglas LOC: [facility] U#:[id number] AGE/SX: 29/F ROOM: RE08/19/[address]: Samaria Perez : 1990 BED: DIS: 08/19/2020 SPEC #: [id number] RECD: 08/19/20 12:50 STATUS: WAYNE THOMPSON #: [id number] RENATO: 08/19/20 10:[address]: Samaria Perez DEPT: [facility] Cytology RECD BY: Batsheva Escamilla ENTERED: 08/19/20 12:50 SP TYPE: PAPFT OTHR DR: Jacquelin Valencia Tissues: 1 - CX/ENDOCX FOR PAP SMEARS Procedures: PAP THIN PREP/UVM Screening Comments: [id number]
== END 2020-08-19 11:05 | disposition home or self-care (01) ==
LOC: LBN 11:04
PROVIDERS: PCP Internal Medicine; Visit Provider Obstetrics & Gynecology Gynecology
DX: Z12.4 Encounter for screening for malignant neoplasm of cervix (principal)
CPT/HCPCS: 88142

== ENCOUNTER 2021-08-15 20:24 | Emergency (ER) | payer MEDICAID, SELFPAY ==
[2021-08-15 20:30] VITALS: BP 96/68; PULSE 80; RESP 17; O2SAT 98
[2021-08-15 20:37] VITALS: BP 81/53; PULSE 57; RESP 16; TEMP 36.5; O2SAT 98
[2021-08-15] MEDS: Normal Saline 1,000 ML 1000 ML IV (21:07)
[2021-08-15] MEDS: FAMOTIDINE 20 MG in Normal Saline 100 ML 400 MG IVPB (21:07)
[2021-08-15] MEDS: Ondansetron 4 MG/2 ML VIAL IVP (21:07)
[2021-08-15 21:14] LABS: Abs Immature Grans 0.08 10^3/uL (0.0-0.06); Absolute Basophil Count 0.04 10^3/uL (0.0-0.2); Absolute Eosinophil Count 0.06 10^3/uL (0.0-0.7); Absolute Lymphocyte Count 0.52 10^3/uL (1.2-3.4); Absolute Monocyte Count 0.67 10^3/uL (0.1-0.8); Basophils % 0.3; Eosinophils % 0.4; HCT 41.9 % (36.0-46.0); HGB 14.6 g/dL (11.2-15.7); Immature Grans % 0.5; Lymphocytes % 3.5; MCH 30.5 pg (27.0-33.0); MCHC 34.8 % (32.0-36.0); MCV 88 fL (80-95); MPV 10.6 fL (8.0-11.0); Monocytes % 4.5; Neutrophils % 90.8; Platelet Count 248 10^3/uL (130-400); RBC 4.78 10^6/uL (3.93-5.22); RDW 12.2 % (11.7-14.6); RDW-SD 39.2 fL; WBC 14.82 10^3/uL (4.4-10.8)
[2021-08-15 21:15] LABS: Absolute Neutrophil Count 13.46 10^3/uL (1.2-6.7)
[2021-08-15 21:21] LABS: Anion Gap 7.7 mmol/L (3-11); BUN 27 mg/dL (7-18); CO2 26.3 mmol/L (21.0-32.0); Calcium 8.7 mg/dL (8.5-10.1); Chloride 107 mmol/L (98-107); Glucose 128 mg/dL (74-106); Potassium 4.3 mmol/L (3.5-5.1); Sodium 141 mmol/L (136-145)
[2021-08-15] MEDS: Acetaminophen 325 MG TAB 650 MG PO (21:46)
[2021-08-15 21:48] VITALS: BP 104/82; RESP 17; O2SAT 99
[2021-08-15] MEDS: Ondansetron O.D.T. 4 MG TABEF, 3 TABS/BTL PO (23:30)
[2021-08-15 23:31] VITALS: BP 110/72; PULSE 60; RESP 17; TEMP 37; O2SAT 99
== END 2021-08-15 23:32 | disposition home or self-care (01) ==
PROVIDERS: Emergency Provider Emergency Medicine; PCP Internal Medicine
DX: Z00.00 Encounter for general adult medical examination without abnormal findings (principal)
CPT/HCPCS: 80048; 85025; J2405

== ENCOUNTER 2021-09-20 04:01 | Outpatient (CLI) | payer MEDICAID, SELFPAY | END 2021-09-20 04:02 | disposition home or self-care (01) | LOC: LBO 04:01 | PROVIDERS: PCP Internal Medicine; Visit Provider Obstetrics & Gynecology Gynecology ==

== ENCOUNTER 2021-09-26 03:03 | Outpatient (CLI) | payer MEDICAID, SELFPAY ==
[2021-09-26 15:27] LABS: HCT 38.8 % (36.0-46.0); HGB 13.5 g/dL (11.2-15.7); MCH 30.7 pg (27.0-33.0); MCHC 34.8 % (32.0-36.0); MCV 88 fL (80-95); Platelet Count 245 10^3/uL (130-400); RDW 12.2 % (11.7-14.6); RDW-SD 39.5 fL; WBC 10.47 10^3/uL (4.4-10.8)
[2021-09-26 16:05] LABS: TSH 2.06 uIU/mL (0.36-3.74)
== END 2021-09-26 03:04 | disposition home or self-care (01) ==
LOC: LBO 03:03
PROVIDERS: PCP Internal Medicine; Visit Provider Obstetrics & Gynecology Gynecology
DX: R53.83 Other fatigue (principal); Z86.2 Personal history of diseases of the blood and blood-forming organs and certain disorders involving the immune mechanism
CPT/HCPCS: 36415; 85027; 84443

== ENCOUNTER 2021-09-26 10:21 | Outpatient (CLI) | payer MEDICAID, SELFPAY ==
--- NOTE | 2021-09-26 10:00 | DI.RAD_ITS ---
Exam(s) XR KNEE LT 4V AP,LAT,VALERIY,PAT EXAM: XR KNEE LT 4V AP,LAT,VALERIY,PAT CLINICAL HISTORY: L knee pain. TECHNIQUE: 2D digital imaging was performed. COMPARISON: No exams were available for comparison FINDINGS: Four views No evidence of fracture or joint effusion. No obvious degenerative changes. No osteochondral defect s. Bone density normal. No osseous lesions. No patellar offset IMPRESSION: No significant radiographic findings in the left knee. DATA REPOSITORY: RADIATION DOSE DELIVERED:
== END 2021-09-26 10:22 | disposition home or self-care (01) ==
LOC: DIORS 10:21
PROVIDERS: PCP Nurse Practitioner Family; Referring Provider Nurse Practitioner Family; Visit Provider Physician Assistant
DX: M25.562 Pain in left knee (principal)
CPT/HCPCS: 73564

== ENCOUNTER → 2021-10-21 00:38 | Outpatient (CLI) | payer MEDICAID, SELFPAY ==
--- NOTE | 2021-10-21 07:00 | DI.MRI_ITS ---
Exam(s) MR LOWER JOINT LT WO EXAM: MR LOWER JOINT LT WO CLINICAL HISTORY: LT KNEE PAIN, INTERNAL DERANGEMENT, M23.92. TECHNIQUE: Multiplanar multisequence MRI was performed. COMPARISON: CR XR KNEE LT 4V AP,LAT,VALERIY,PAT from 09/26/2021 FINDINGS: BONES: There is no fracture or contusion pattern. JOINTS: Articular cartilage is unremarkable. No effusion is present. TENDONS: Extensor mechanism: Unremarkable. Medial retinaculum: Unremarkable. Lateral retinaculum: Unremarkable. Popliteus: Unremarkable. MUSCLES: Unremarkable. MENISCI: The medial meniscus is unremarkable. The lateral meniscus is unremarkable. SOFT TISSUES: Unremarkable. LIGAMENTS: Anterior Cruciate: Unremarkable. Posterior Cruciate: Unremarkable. Medial Collateral:Unremarkable. Lateral Collateral: Unremarkable. OTHER: IMPRESSION: 1. There is no evidence of a meniscal or ligament tear. 2. There is no evidence of an occult fracture or avascular necrosis. DATA REPOSITORY:
== END ==
PROVIDERS: PCP Nurse Practitioner Family; Visit Provider Student in an Organized Health Care Education/Training Program
DX: M23.92 Unspecified internal derangement of left knee (principal)
CPT/HCPCS: 73721

== ENCOUNTER 2021-11-14 03:42 | Outpatient (CLI) | payer MEDICAID, SELFPAY ==
[2021-11-14 12:23] LABS: Source Nasal/Nares
[2021-11-14 15:28] LABS: COVID-19 PCR Negative (Negative)
== END 2021-11-14 03:43 | disposition home or self-care (01) ==
PROVIDERS: PCP Nurse Practitioner Family; Visit Provider Student in an Organized Health Care Education/Training Program
DX: Z20.822 Contact with and (suspected) exposure to COVID-19 (principal)
CPT/HCPCS: 87635

== ENCOUNTER 2021-11-15 09:09 | Day surgery (SDC) | payer MEDICAID, SELFPAY ==
[2021-11-15] VITALS (10 sets, daily range): BP systolic 93–131; BP diastolic 40–92; PULSE 60–90; RESP 10–19; TEMP 36.3–37.1; TEMPC 36.3; O2SAT 89–100; BMI 25.9
--- NOTE | 2021-11-15 07:23 | PDOC.DSDIS_ITS ---
Discharge Plan Disposition Patient Disposition: HOME Condition: Good Discharge Details Reason For Visit: Left knee internal derangement Attending Provider: Jason Roman Primary Care Provider: KATHERIN CEE Home Meds and New Rx's Prescriptions: New hydrocodone-acetaminophen 5-325 mg tablet 1 tab PO Q6H PRN (Reason: severe pain) Qty: 4 0RF Rx Instructions: Take one tablet up to every 6 hours as needed for severe postoperative pain acetaminophen 500 mg tablet 500 mg PO Q6H PRN (Reason: pain) Qty: 60 2RF ibuprofen 600 mg tablet 600 mg PO TID PRN (Reason: pain) Qty: 60 0RF Continued cetirizine [Zyrtec] 10 mg tablet 10 mg PO DAILY PRN (Reason: allergy symptoms) Qty: 30 3RF prenat.vits,jonny,[id number] Tablet 1 tab PO DAILY Qty: 90 4RF Mirena 20 mcg/24 hours (7 yrs) 52 mg intrauterine device 1 device intrauterine ONCE Rx Instructions: as a single dose Discontinued ibuprofen [IBU] 800 mg tablet 800 mg PO Q8H Qty: 30 0RF Discharge Instructions Stand Alone Forms: Jessie Knee Arthroscopy Referrals: Jason Roman MD [ [facility] STAFF PHYSICIAN] - Equipment/Supplies: Partial Weight Bearing Crutches Activity:: Elevate Remove Dressings/Wound Care:: 72 hours Shower/Bathe:: 72 hours Diet:: As Tolerated Discharge Orders Discharge Orders: Discharge Order (Routine); Ordered 11/15/21 Ordered By: Vidhya Wright
--- NOTE | 2021-11-15 09:39 | ANES.PREOP_ITS ---
General Info Date of Service Date Performed: 11/15/21 Height: 5 ft 6 in Weight: 73.1 kg Body Mass Index (BMI): 25.9 Surgical Procedure: Operation Date: 11/15/21 12:10 Proposed Procedure Side Surgeon p Knee Diagnostic Arthroscopy, Synovectomy Left Jason Roman MD Meds Allergies and Home Medications Allergies Allergy/AdvReac Type Severity Reaction Status Date / Time sumatriptan [From Imitrex] Allergy Severe Throat Verified 11/15/21 09:24 swelling Pets AdvReac Intermediate Uncoded 11/15/21 09:24 Home Medication Medication Instructions Recorded levonorgestrel 20 mcg/24 hours (7 1 device intrauterine ONCE 08/17/21 yrs) 52 mg intrauterine device (Mirena) cetirizine 10 mg tablet (Zyrtec) 10 mg PO DAILY PRN allergy 09/15/21 symptoms #30 tabs prenat.vits,jonny,ugk-aots-sdosy 1 tab PO DAILY #90 tabs 09/15/21 acetaminophen 500 mg tablet 500 mg PO Q6H PRN pain #60 tabs 11/15/21 hydrocodone 5 mg-acetaminophen 325 1 tab PO Q6H PRN severe pain #4 11/15/21 mg tablet tabs ibuprofen 600 mg tablet 600 mg PO TID PRN pain #60 tabs 11/15/21 Current Visit Medications: Current Medications Generic Name Dose Route Start Last Admin Trade Name Freq PRN Reason Stop Dose Admin Acetaminophen 650 mg 11/15/21 07:22 Acetaminophen 325 Mg Tab PO Q4H PRN PRN Hydrocodone Bitart/Acetaminophen 0 tab 11/15/21 07:22 Hydrocodone 5/Acetaminophen 325 Tab PO Q3H PRN PRN Pain Ringer's Solution 1,000 mls @ 80 mls/hr 11/15/21 06:00 IV 12/14/21 23:59 INFUSION AALIYAH Cefazolin Sodium/Dextrose 2 gm in 50 mls @ 100 mls/hr 11/15/21 06:00 Ancef Duplex IVPB 11/15/21 16:00 PREOP AALIYAH IV Miscellaneous Supplies 1 each 11/15/21 06:00 Iv Access IV 12/14/21 23:59 DIRECTED AALIYAH Sodium Chloride 0 ml 11/15/21 06:00 Normal Saline Flush 10 Ml Syr IV 12/14/21 23:59 PRN PRN Sodium Chloride 0 ml 11/15/21 06:00 Normal Saline 10 Ml Vial IJ 12/14/21 23:59 DIRECTED PRN Sterile Water 0 ml 11/15/21 06:00 Water,Injection,Sterile 10 Ml Vial IJ 12/14/21 23:59 DIRECTED PRN PFSH Active Problems Active Problems: Problem Status Onset Code IUD (intrauterine device) in place Z97.5 Internal derangement of left knee M23.92 Pre-conception counseling Z31.69 Nasal congestion with rhinorrhea R09.81, J34.89 Fatigue R53.83 Hx of iron deficiency anemia Z86.2 Normal spontaneous vaginal delivery O80 ASCUS with positive high risk HPV Abnormal uterine bleeding (AUB) Anxiety 05/30/17 F41.9 Chronic pelvic pain in female 03/17/16 R10.2, G89.29 Endometriosis determined by laparoscopy 01/27/16 N80.9 Migraine without status migrainosus, not intractable 01/27/16 G43.909 Mild intermittent asthma without complication 01/27/16 J45.20 Medical History Medical History Acute pain in female pelvis (02/22/16) Asthma does not need inhalers. Dysmenorrhea longstanding. Mirena IUD in place. Continues to have menses. Encounter for surveillance of contraceptive pills (10/12/17) Essential hypertension (09/07/17) Fever of unknown origin (08/21/17) 2017. Neg w/u for infectious etiology. Sx subsided after 1+ monthss. Gestational hypertension Headache in pt's PMHx it is described as a migraine. Pelvic pain 2014 had diagnostic laparoscopy - stage 1 endometriosis 02/2016 repeat diagnostic laparoscopy. Nl pelvis, nl fallopian tubes. 05/2016 repeat laparoscopy in [place]. Mild disease. Began continuous OCPs. Medical History Comments:: pt. stated she had asthma attack post anesthesia Surgical History Surgical History Appendectomy (08/24/02) Diagnostic Laproscopy (04/08/14) 04/08/14 Dr. Lee. Dx endometriosis. Review of op note suggests stage 1. Peritoneal implants fulgurated with argon laser. No adhesions. 03/09/16 [facility] Diagnostic laparoscopy for recurrent pelvic pain. Normal pevis. Normal, patent fallopian tubes. 06/29/16 Dr Mccauley laparoscopic presacral neurectomy, excision of peritoneum over L and R sidewall anterior and posterior cul de sac and bilateral ovarian suspension distal radial - ulna joint surgery 2009 H/O arthroscopy of left knee (~12/2019) proctoscopy 06/29/16 at time of Laparoscopic sacral nerve ablation, removal of peritoneal surfaces of L and R side wall and anterior and posterior cul de sac. Nl Proctoscopy. tympanostomy 2000. R ear tube removed 2011. Tobacco Smoking/Tobacco Use Status: Never Alcohol Alcohol Intake: current Alcohol intake frequency: 0-2 drinks per day Alcohol type: hard liquor Details: Does not drink to excess Substance Use Substance use: Never Substance use type: does not use Prental History History 1 Para 1 Hx # Term Pregnancies 1 Multiple births Hx # Pregnancies Ectopic pregnancies AB induced Hx Number of Living Children 1 AB spontaneous Past Pregnancies Del. Date GA/Weeks # Preg Succ Route Wgt Sex Labor Lgth Anesth esia Location Prov Complic 10/18/19 38 No vaginal 3515.341 g Female regional MD Richard Delivery Date: 10/18/19 Last Updated by: Samaria Perez MD Induced due to Gest. HTN/PreEclampsia; Second degree laceration, repaired. Shweta Kahn. Vital Signs and Lab Results Vital Signs Most Recent Vital Signs in EMR: Most Recent Vital Signs Temp Pulse Resp BP Pulse Ox 37.1 C 77 18 122/74 100 11/15/21 09:27 11/15/21 09:27 11/15/21 09:27 11/15/21 09:27 11/15/21 09:27 Lab Results Blood Type / Crossmatch: No Data to Display Complete Blood Count: No Data to Display Complete Metabolic Panel: No Data to Display Liver Function Panel: No Data to Display Coagulation Panel: No Data to Display Cardiac Panel: No Data to Display Arterial Blood Gas: No Data to Display Venous Blood Gas: No Data to Display Pancreas Panel: No Data to Display Thyroid Panel: No Data to Display Infectious Disease: Coronavirus (COVID-19)(PCR) Negative (Negative) 11/14/21 08:12 Coronavirus 2019 Source Nasal/Nares 11/14/21 08:12 Blood Cultures: No Data to Display Toxicology Panel: No Data to Display Panel: No Data to Display Anesthesia Assessment and Plan Anesthesia History Personal History: Other (Asthma attack with preoxygenation with previous induction ) Family History: No Family History of Anesthesia Complications Exercise Tolerance Exercise Tolerance: Metabolic Equivalents>4 Pertinent Negatives Pertinent Negatives: No Symptoms of GERD, No Major Cardiovascular Symptoms or Complaints, No Major Pulmonary Symptoms or Complaints and No History of CVA/TIA Cardiac & Pulmonary Exam Cardiac Exam: Normal S1/S2 Heart Sounds Pulmonary Exam: Clear Bilateral Breath Sounds Implantable Cardiac Device Does patient have a Pacemaker or an ICD?: No Airway Exam Known Difficult Airway: No Mallampati Class: 1 Mouth Opening: Normal (> 3cm) Thyromental Distance: Greater than 3 cm Neck Range of Motion: Full ROM Neck Circumference: Normal Teeth Condition: Normal Dentition ASA Classification ASA Score: ASA 2 Emergency Case?: No NPO Status NPO Status: NPO Clears >2 hours, Solids >8 hours Status Status: Negative HCG Anesthesia Plan Resuscitation Status: Full Code Anesthesia Technique: General Anesthesia Airway Planned: LMA Monitors Used: Standard Monitors
[2021-11-15] MEDS: Lactated Ringers 1,000 ML 80 ML IV (09:49)
[2021-11-15] MEDS: ceFAZolin 2 GM/50 ML BAG IVPB (10:22)
[2021-11-15] MEDS: Bupivacaine 0.5% Pres-Free 30 ML VIAL (10:35)
--- NOTE | 2021-11-15 11:18 | ROE_ITS ---
Date of service: 11/15/21 Time of Service: 11:05 Operative Note Operative Note DATE OF PROCEDURE: 11/15/21 PRE-OP DIAGNOSIS: Left Knee Internal Derangement POST-OP DIAGNOSIS: other (Left Knee Medial Plica and Left Patella Chondromalacia with Maltracking) PROCEDURE: Left knee arthroscopic synovectomy of the medial plica along with chondroplasty of the medial edge of the patella SURGEON: Jason Roman ANESTHESIA TYPE: General LMA/ETT Refer to Anesthesia Record ESTIMATED BLOOD LOSS: 0 PATHOLOGY: none sent COMPLICATIONS: None Patient was transported to: PACU Patient's condition: stable Indications: I have seen Sheila in clinic for symptoms of a meniscus tear. This was confirmed based on MRI and exam findings. Nonoperative measures were exhausted but disability and pain persisted. I discussed knee arthroscopy with meniscal intervention with the patient. I reviewed the risks of the procedure to include, but not limited to, bleeding, infection, pain, stiffness, damage to nerves or vessels, recurrence, blood clot. Despite these risks, the patient elected to proceed. Findings: A diagnostic arthroscopy was performed with the following findings: Suprapatellar Pouch: Minimal inflammatory change, no loose bodies Medial Compartment: No meniscal tear, intact meniscal root, grade I chondromalacia of the central tibia, no loose bodies, dense medial plica with direct articulation of the medial femur Notch: ACL and PCL were intact although with some surrounding synovitis Lateral Compartment: No meniscal tear, intact meniscal root, no significant chondromalacia or signs of arthritis, no loose bodies Patellofemoral Compartment: Focal area of grade III chondromalacia with a fiss ure over the medial aspect, lateral tilt and mild maltracking Procedure Description: Sheila was greeted in the preoperative holding area where the correct side was identified and marked. The consent was reviewed with the patient and signed. The history and physical was updated. All questions were answered. She was taken back to the operating room. The patient was placed into the supine position on the operating room table. All bony prominences were well padded. Prophylactic antibiotics in the form of Cefazolin were administered. The left leg was then prepped with Chloraprep and draped in a standard fashion with stockinette and extremity drape. A timeout to confirm correct identity, side and site, procedure, allergies, anesthesia, and medical concerns was performed. The leg was placed into a pneumatic leg live, [id number]. A standard lateral portal was made at the lateral border of the patella tendon in line with the inferior pole of the patella, soft spot. The skin and deep tissue was incised sharply and the blunt trochar was inserted atraumatically. A diagnostic arthroscopy was performed and the findings are listed above. The suprapatellar pouch had mild inflammatory changes. The patellofemoral articulation showed an area of focal cartilage damage over the medial edge of the patella. This seemed to be a fissure with a loose cartilage flap which was not full-thickness but involving greater than half of the cartilage thickness anchor medially. There was notable lateral tilt with some mild lateral maltracking. There is also thickened tissue seen around the distal pole patella as well as over the medial side of the knee with a thickened band, plica, resting against the femoral condyle, worsened with flexion. The lateral gutter had no loose bodies and the medial gutter had no loose bodies. The knee was brought into some valgus stress in extension to open the medial compartment. A medial portal was made, localized by a spinal needle. The portal was created with an #11 blade through skin and capsule under direct visualization avoiding any meniscal injury. A probe was then inserted into the medial compartment. The medial compartment was fully inspected. The chondral surface of the tibia showed grade I chondromalacia and the surface of the femur showed no significant chondromalacia. The medial meniscus had no meniscal tear. The notch was then inspected which showed an intact ACL and an intact PCL although there was some inflammation around the ACL. The leg was then brought into a figure of 4 position. The lateral compartment was fully inspected with the arthroscope and a probe. The chondral surface of the lateral femur showed no significant chondromalacia. The chondral surface of the lateral tibia showed no significant chondromalacia. The lateral meniscus had no meniscal tear. The arthroscope was brought back into the suprapatellar pouch and the leg was in full extension. A 70 degree scope was then inserted and the patellar lesion was more clearly identified. This appeared to be a fissure with a small flap of cartilage measuring approximately 2 mm in depth and 3 mm in width. I then utilized a shaver to remove the loose edges of the cartilage. I was careful not to debride into stable cartilage. Visualization was challenging given the location of the patellar lesion. Once this was debrided fully I once again inspected it with the probe and while there was a fissure here I was unable to see bone at his bottom, suggesting only grade III chondromalacia. Also was a fissure rather than an actual hole measuring only 1 to 2 mm wide. There was some irregularity of the cartilage but this cartilage was stable and therefore was not debrided. I returned to visualization with a 30 degree scope and once again inspected this area. It was probed and I felt that there was no other cartilage flaps. I debrided some the soft tissue from the medial side of the patella which was hypertrophied. I then proceeded to perform a plica resection of the medial compartment. Dense and thickened plica tissue from the medial side the knee was resected using the shaver. This was done without difficulty although there was some minor bleeding. The shaver and camera then brought back into the suprapatellar pouch. The knee was thoroughly irrigated with the arthroscopic fluid on high flow and pressure. Inflow was stopped and excess fluid was removed. The wounds were closed with 4-0 Nylon. The knee was injected with 0.5% bupivacaine. The wounds were dressed with Xeroform, 4x4 gauze, ABD pad, Kerlix and an STEFANO wrap. A cryo- cuff was applied. The patient tolerated the procedure well and was returned to the Same Day Surgery area in a stable condition suffering no known complication.
[2021-11-15] MEDS: HYDROcodone 5/Acetaminophen 325 TAB PO (12:37)
--- NOTE | 2021-11-15 12:54 | W.ANESPOSTOP ---
Postoperative Evaluation Date, Time and Location Date Performed: 11/15/21 Time Performed: 12:54 Patient Location: Day Surgery Unit Vital Signs Most Recent Imported Vital Signs: Most Recent Vital Signs Temp Pulse Resp BP Pulse Ox 36.3 C L 65 15 106/87 100 11/15/21 12:17 11/15/21 12:17 11/15/21 12:10 11/15/21 12:17 11/15/21 12:17 Most Recent Manually Entered Vital Signs: Adult Blood Pressure: 116/89 Heart Rate: 65 Respirations: 10 Oxygen Saturation (%): 99 Temperature (C): 36.3 C Pain Score (0-10 Scale): 4 Pain Score Most Recent Pain Score: Most Recent Pain Score Pain Level 7 11/15/21 12:17 Assessment Mental Status: Awake (Alert & Oriented to Patient Baseline) Airway and Respiratory Function: Patent airway with normal (patient baseline) respiratory exam Cardiovascular Function: Hemodynamically Stable Hydration Status: Adequately Hydrated Nausea & Vomiting: No Nausea or Vomiting Pain: Pain is tolerable per patient Peripheral Nerve Block: Patient did not receive a nerve block
== END 2021-11-15 13:45 | disposition home or self-care (01) ==
PROVIDERS: PCP Nurse Practitioner Family; Visit Provider Student in an Organized Health Care Education/Training Program
PROC: (CPT 29870; principal; 2021-11-15 12:00)
DX: M67.52 Plica syndrome, left knee (principal); M94.262 Chondromalacia, left knee
CPT/HCPCS: 29875; 81025; J0131; J0690; J1100; J1200; J1885; J2250; J2405

== ENCOUNTER 2022-07-05 09:18 | Emergency (ER) | payer MEDICAID, SELFPAY ==
[2022-07-05 09:21] VITALS: BP 144/89; PULSE 75; RESP 98; TEMP 36.8; O2SAT 95
[2022-07-05 09:28] VITALS: RESP 16
--- NOTE | 2022-07-05 10:55 | ED.GENADUL_ITS ---
Discharge Plan Disposition Patient Disposition: Home Discharge Details Clinical Impression: Tuberculin skin test encounter Primary Care Provider: KATHERIN CEE ED Provider: Batsheva Main Home Meds and New Rx's Prescriptions: Continued cetirizine [Zyrtec] 10 mg tablet 10 mg PO DAILY PRN (Reason: allergy symptoms) Qty: 30 3RF prenat.vits,jonny,[id number] Tablet 1 tab PO DAILY Qty: 90 4RF Mirena 20 mcg/24 hours (7 yrs) 52 mg intrauterine device 1 device intrauterine ONCE Rx Instructions: as a single dose acetaminophen 500 mg tablet 500 mg PO Q6H PRN (Reason: pain) Qty: 60 2RF ibuprofen 600 mg tablet 600 mg PO TID PRN (Reason: pain) Qty: 60 0RF Discharge Instructions Additional Instructions: Please have your test read between 48 to 72 hours Your test does not appear to be a positive result Please return should you have new or worsening complaints Discharge Data Discharge Date/Time-TO BE ENTERED AT DEPARTURE: 07/05/22 09:56 Medical Decision Making Patient presents for TB test interpretation and report of need for x-ray Her TB test was placed yesterday, she did not notice a wheal after placement She was sent here and reportedly needs to have a chest x-ray, I did evaluate her forearm, it has not been 24 hours since the TB test was placed and I suspect she is having a local reaction, this does not appear to be a positive TB test at this point and patient is very low risk for acquiring TB She is instructed to wait the full 48 hours and encouraged to return to work at this time And will hold on chest x-ray at this time and encouraged her to have the placing facility recheck her TB test in approximately 30 hours she HPI General Date/Time Provider Initiated Documentation: 07/05/22 09:20 . HPI Narrative: This 31-year-old female presents with TB test planted yesterday but now rash noted. States she was told to come to the emergency department for an x-ray. States this was placed at 3:00 yesterday. States she was concerned as she had a negative test a month ago. Denies high risk exposures and has not been vaccinated for TB in the past. Related Data Home Medications Medication Instructions Recorded Confirmed levonorgestrel 21 mcg/24 hours (8 1 device intrauterine ONCE 08/17/21 07/05/22 yrs) 52 mg intrauterine device (Mirena) cetirizine 10 mg tablet (Zyrtec) 10 mg PO DAILY PRN allergy 09/15/21 07/05/22 symptoms #30 tabs prenat.vits,jonny,[id number] 1 tab PO DAILY #90 tabs 09/15/21 07/05/22 acetaminophen 500 mg tablet 500 mg PO Q6H PRN pain #60 tabs 11/15/21 07/05/22 ibuprofen 600 mg tablet 600 mg PO TID PRN pain #60 tabs 11/15/21 07/05/22 Previous Rx's Medication Instructions Recorded cetirizine 10 mg tablet (Zyrtec) 10 mg PO DAILY PRN allergy 09/15/21 symptoms #30 tabs prenat.vits,jonny,[id number] 1 tab PO DAILY #90 tabs 09/15/21 acetaminophen 500 mg tablet 500 mg PO Q6H PRN pain #60 tabs 11/15/21 ibuprofen 600 mg tablet 600 mg PO TID PRN pain #60 tabs 11/15/21 Allergies Allergy/AdvReac Type Severity Reaction Status Date / Time sumatriptan [From Imitrex] Allergy Severe Throat Verified 01/30/22 13:48 swelling Pets AdvReac Intermediate Uncoded 01/30/22 13:48 General Stated Complaint: [employer] CONSTANTINE: 4 PFSH All Active Problems (Updated 07/05/22 @ 09:46 by LIVIA Araujo) Tuberculin skin test encounter (Acute) Chondromalacia of left patella (Acute) Depo-Medrol injection: 01/02/2022 H/O arthroscopy of left knee (Acute 11/15/21) IUD (intrauterine device) in place (Acute) Pre-conception counseling (Acute) Nasal congestion with rhinorrhea (Acute) Fatigue (Acute) Hx of iron deficiency anemia (Acute) Normal spontaneous vaginal delivery (Acute) 10/18/19. Bruce Kahn. ASCUS with positive high risk HPV (Acute) Abnormal uterine bleeding (AUB) (Chronic) 2013 Depo 2014 Diagnostic laparoscopy. Seasonique> OCPs>Mirena, 05/2016 Mirena removed. Continuous OCPs 09/2017 formulation of OCPs changed x2. prefers monthly withdrawal bleed. Anxiety (Chronic 05/30/17) Chronic pelvic pain in female (Chronic 03/17/16) Endometriosis determined by laparoscopy (Chronic 01/27/16) 01/2015 Dr Lee at [facility]. Fulguration of stage ? 1 peritoneal endometriosis implants. 2017. operative laparoscopy. Fulguration of stage 1 lesions. 06/2016. Continuous active OCPs. Migraine without status migrainosus, not intractable (Chronic 01/27/16) Mild intermittent asthma without complication (Chronic 01/27/16) Medical History (Updated 07/05/22 @ 09:46 by LIVIA Araujo) Acute pain in female pelvis (02/22/16) Asthma does not need inhalers. Dysmenorrhea longstanding. Mirena IUD in place. Continues to have menses. Encounter for surveillance of contraceptive pills (10/12/17) Essential hypertension (09/07/17) Fever of unknown origin (08/21/17) 2017. Neg w/u for infectious etiology. Sx subsided after 1+ monthss. Gestational hypertension Headache in pt's PMHx it is described as a migraine. Pelvic pain 2014 had diagnostic laparoscopy - stage 1 endometriosis 02/2016 repeat diagnostic laparoscopy. Nl pelvis, nl fallopian tubes. 05/2016 repeat laparoscopy in [place]. Mild disease. Began continuous OCPs. Surgical History (Updated 11/30/21 @ 13:48 by LIVIA Mendez) Appendectomy (08/24/02) Diagnostic Laproscopy (04/08/14) 04/08/14 Dr. Lee. Dx endometriosis. Review of op note suggests stage 1. Peritoneal implants fulgurated with argon laser. No adhesions. 03/09/16 [facility] Diagnostic laparoscopy for recurrent pelvic pain. Normal pevis. Normal, patent fallopian tubes. 06/29/16 Dr Mccauley laparoscopic presacral neurectomy, excision of peritoneum over L and R sidewall anterior and posterior cul de sac and bilateral ovarian suspension distal radial - ulna joint surgery 2009 H/O arthroscopy of left knee (~12/2019) proctoscopy 06/29/16 at time of Laparoscopic sacral nerve ablation, removal of peritoneal surfaces of L and R side wall and anterior and posterior cul de sac. Nl Proctoscopy. tympanostomy 2000. R ear tube removed 2011. 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 Date GA/Weeks # Preg Succ Route Wgt Sex Labor Lgth Anesth esia Location Prov [facility] 10/18/19 38 No vaginal 3515.341 g Female regional MD Richard Delivery Date: 10/18/19 Last Updated by: Samaria Perez MD Induced due to Gest. HTN/PreEclampsia; Second degree laceration, repaired. Shweta Kahn. Exam Narrative Exam Narrative: Patient has a area of redness and small area of induration on right forearm along the palmar aspect, no significant induration, mild redness Course Vital Signs Vital signs: Vital Signs Temperature 36.8 C 07/05/22 09:21 Pulse 75 07/05/22 09:21 Respiratory Rate 98 H 07/05/22 09:21 Blood Pressure 144/89 H 07/05/22 09:21 Pulse Oximetry 95 07/05/22 09:21 Temperature 36.8 C 07/05/22 09:21 Temperature Source Oral 07/05/22 09:21 Pulse 75 07/05/22 09:21 Respiratory Rate 16 07/05/22 09:28 Respiratory Effort Normal, Non-Labored 07/05/22 09:28 Respiratory Depth Normal 07/05/22 09:28 Respiratory Pattern Normal 07/05/22 09:28 Blood Pressure 144/89 H 07/05/22 09:21 Blood Pressure Position Sitting 07/05/22 09:21 Pulse Oximetry 95 07/05/22 09:21 Oxygen Delivery Method Room Air 07/05/22 09:21 Oxygen Flow Rate 0 07/05/22 09:21 Pain Level 0 07/05/22 09:52
== END 2022-07-05 09:56 | disposition home or self-care (01) ==
PROVIDERS: Emergency Provider Physician Assistant; PCP Nurse Practitioner Family
DX: R76.11 Nonspecific reaction to tuberculin skin test without active tuberculosis (principal)
CPT/HCPCS: 99281; 99282

== ENCOUNTER 2022-07-12 10:59 | Emergency (ER) | payer MEDICAID, SELFPAY ==
[2022-07-12 11:03] VITALS: BP 134/70; PULSE 65; RESP 18; TEMP 36.8; O2SAT 98
--- NOTE | 2022-07-12 11:28 | ED.GENADUL_ITS ---
Discharge Plan Disposition Patient Disposition: Home Condition: Stable Discharge Details Clinical Impression: Allergic reaction Primary Care Provider: KATHERIN CEE ED Provider: Baron Escobar Meds and New Rx's Prescriptions: New methylprednisolone [Medrol (Davy)] 4 mg tablets,dose pack See Rx Instructions .ROUTE .COMPLEX Qty: 1 0RF Rx Instructions: orally per package directions Continued cetirizine [Zyrtec] 10 mg tablet 10 mg PO DAILY PRN (Reason: allergy symptoms) Qty: 30 3RF prenat.vits,jonny,bus-elam-hmwpk Tablet 1 tab PO DAILY Qty: 90 4RF Patient Comments: not taking Mirena 20 mcg/24 hours (7 yrs) 52 mg intrauterine device 1 device intrauterine ONCE Rx Instructions: as a single dose acetaminophen 500 mg tablet 500 mg PO Q6H PRN (Reason: pain) Qty: 60 2RF ibuprofen 600 mg tablet 600 mg PO TID PRN (Reason: pain) Qty: 60 0RF Discharge Instructions Instructions: General Allergic Reaction (ED) Discharge Data Discharge Physician: Baron Escobar Medical Decision Making Patient presents emergency department complaining of itchy all over but at this time does not have a rash the only different situations that she received a medication and try articular in her left knee of lidocaine and triamcinolone but also rib 8 at the [employer] and a salad and she states allergic to seafood so it could be either or because the allergy. At this time the patient will be given tapering dose of prednisone and will be discharged home and will watch for allergic reactions of the similar substances in the near future. Differential Diagnosis Differential Diagnosis: 1. Urticaria 2. Contact dermatitis 3. Allergy Medical Records Medical records reviewed: Yes I reviewed the patient's medical records. HPI General Date/Time Provider Initiated Documentation: 07/12/22 11:27 . History of Present Illness 31 year old F presents to the emergency department with the chief complaint of Patient presents emergency department complaining of feeling itchy all over, HPI Narrative: Patient presents emergency department complaining of feeling itchy all over after she had an injection into her left knee but also states that she ate at the [employer] and is allergic to seafood and does not know which caused the allergy. Reports generalized itching and hives took Benadryl with improvement but still feels itchy. Related Data Home Medications Medication Instructions Recorded Confirmed levonorgestrel 21 mcg/24 hours (8 1 device intrauterine ONCE 08/17/21 07/12/22 yrs) 52 mg intrauterine device (Mirena) cetirizine 10 mg tablet (Zyrtec) 10 mg PO DAILY PRN allergy 09/15/21 07/12/22 symptoms #30 tabs prenat.vits,jonny,ijx-[id number]-mshfj 1 tab PO DAILY #90 tabs 09/15/21 07/05/22 acetaminophen 500 mg tablet 500 mg PO Q6H PRN pain #60 tabs 11/15/21 07/12/22 ibuprofen 600 mg tablet 600 mg PO TID PRN pain #60 tabs 11/15/21 07/12/22 methylprednisolone 4 mg tablets in See Rx Instructions PO .COMPLEX #1 07/12/22 a dose pack (Medrol (Davy)) dose pk Previous Rx's Medication Instructions Recorded cetirizine 10 mg tablet (Zyrtec) 10 mg PO DAILY PRN allergy 09/15/21 symptoms #30 tabs prenat.vits,jonny,wiq-otmt-ihxqz 1 tab PO DAILY #90 tabs 09/15/21 acetaminophen 500 mg tablet 500 mg PO Q6H PRN pain #60 tabs 11/15/21 ibuprofen 600 mg tablet 600 mg PO TID PRN pain #60 tabs 11/15/21 methylprednisolone 4 mg tablets in See Rx Instructions PO .COMPLEX #1 07/12/22 a dose pack (Medrol (Davy)) dose pk Allergies Allergy/AdvReac Type Severity Reaction Status Date / Time sumatriptan [From Imitrex] Allergy Severe Throat Verified 07/12/22 11:05 swelling Pets AdvReac Intermediate Uncoded 07/12/22 11:05 General Stated Complaint: Allergic CONSTANTINE: 4 Review of Systems All systems reviewed & are unremarkable except as noted in HPI and below Eyes Eyes: Reports system reviewed and no additional complaints, except as documented ENT Ears, Nose, Mouth, and Throat: Reports system reviewed and no additional complaints, except as documented Cardiovascular Cardiovascular: Reports system reviewed and no additional complaints, except as documented Respiratory Respiratory: Reports system reviewed and no additional complaints, except as documented Gastrointestinal Gastrointestinal: Reports system reviewed and no additional complaints, except as documented Genitourinary Genitourinary: Reports system reviewed and no additional complaints, except as documented Musculoskeletal Musculoskeletal: Reports system reviewed and no additional complaints, except as documented Neurologic Neurologic: Reports system reviewed and no additional complaints, except as documented Psychiatric Psychiatric: Reports system reviewed and no additional complaints, except as documented Hematologic/Lymphatic Hematologic/Lymphatic: Reports system reviewed and no additional complaints, except as documented PFSH All Active Problems (Updated 07/12/22 @ 11:41 by Baron Escobar MD) Tuberculin skin test encounter (Acute) Allergic reaction (Acute) Chondromalacia of left patella (Acute) Depo-Medrol injection: 01/02/2022 H/O arthroscopy of left knee (Acute 11/15/21) IUD (intrauterine device) in place (Acute) Pre-conception counseling (Acute) Nasal congestion with rhinorrhea (Acute) Fatigue (Acute) Hx of iron deficiency anemia (Acute) Normal spontaneous vaginal delivery (Acute) 10/18/19. Bruce Kahn. ASCUS with positive high risk HPV (Acute) Abnormal uterine bleeding (AUB) (Chronic) 2013 Depo 2014 Diagnostic laparoscopy. Seasonique> OCPs>Mirena, 05/2016 Mirena removed. Continuous OCPs 09/2017 formulation of OCPs changed x2. prefers monthly withdrawal bleed. Anxiety (Chronic 05/30/17) Chronic pelvic pain in female (Chronic 03/17/16) Endometriosis determined by laparoscopy (Chronic 01/27/16) 01/2015 Dr Lee at [facility] AT [facility]. Fulguration of stage ? 1 peritoneal endometriosis implants. 2017. operative laparoscopy. Fulguration of stage 1 lesions. 06/2016. Continuous active OCPs. Migraine without status migrainosus, not intractable (Chronic 01/27/16) Mild intermittent asthma without complication (Chronic 01/27/16) Medical History Acute pain in female pelvis (02/22/16) Asthma does not need inhalers. Dysmenorrhea longstanding. Mirena IUD in place. Continues to have menses. Encounter for surveillance of contraceptive pills (10/12/17) Essential hypertension (09/07/17) Fever of unknown origin (08/21/17) 2017. Neg w/u for infectious etiology. Sx subsided after 1+ monthss. Gestational hypertension Headache in pt's PMHx it is described as a migraine. Pelvic pain 2014 had diagnostic laparoscopy - stage 1 endometriosis 02/2016 repeat diagnostic laparoscopy. Nl pelvis, nl fallopian tubes. 05/2016 repeat laparoscopy in [place]. Mild disease. Began continuous OCPs. Surgical History Appendectomy (08/24/02) Diagnostic Laproscopy (04/08/14) 04/08/14 Dr. Lee. Dx endometriosis. Review of op note suggests stage 1. Peritoneal implants fulgurated with argon laser. No adhesions. 03/09/16 [facility] Diagnostic laparoscopy for recurrent pelvic pain. Normal pevis. Normal, patent fallopian tubes. 06/29/16 Dr Mccauley laparoscopic presacral neurectomy, excision of peritoneum over L and R sidewall anterior and posterior cul de sac and bilateral ovarian suspension distal radial - ulna joint surgery 2009 H/O arthroscopy of left knee (~12/2019) proctoscopy 06/29/16 at time of Laparoscopic sacral nerve ablation, removal of peritoneal surfaces of L and R side wall and anterior and posterior cul de sac. Nl Proctoscopy. tympanostomy 2000. R ear tube removed 2011. 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 Date GA/Weeks # Preg Succ Route Wgt Sex Labor Lgth Anesth esia Location Prov [facility] 10/18/19 38 No vaginal 3515.341 g Female regional MD Richard Delivery Date: 10/18/19 Last Updated by: Samaria Perez MD Induced due to Gest. HTN/PreEclampsia; Second degree laceration, repaired. Shweta Kahn. Exam Const General: cooperative, healthy appearing, comfortable and no acute distress [facility] Head: normal to inspection, normocephalic and atraumatic Eyes General: appearance normal, both eyes and all related structures Conjunctivae: conjunctivae normal Sclera: sclerae normal Pupils: PERRL Neck Neck: normal visual inspection and no lymphadenopathy Chest Chest: normal inspection of the chest Resp Effort & Inspection: normal respiratory effort and able to speak in complete sentences Cardio Palpation: normal PMI Rate: regular rate Rhythm: regular rhythm GI Inspection: normal to inspection Back/Spine/Pelvis Back: no CVA tenderness Skin General skin exam: no rashes or lesions noted and dry skin Neuro General: patient alert, patient awake and patient oriented x3 Extrem General: normal to inspection and full ROM Course Vital Signs Vital signs: Vital Signs Temperature 36.8 C 07/12/22 11:03 Pulse 65 07/12/22 11:03 Respiratory Rate 18 07/12/22 11:03 Blood Pressure 134/70 07/12/22 11:03 Pulse Oximetry 98 07/12/22 11:03 Temperature 36.8 C 07/12/22 11:03 Temperature Source Oral 07/12/22 11:03 Pulse 65 07/12/22 11:03 Respiratory Rate 18 07/12/22 11:03 Respiratory Effort Normal, Non-Labored 07/12/22 11:05 Blood Pressure 134/70 07/12/22 11:03 Pulse Oximetry 98 07/12/22 11:03 Oxygen Delivery Method Room Air 07/12/22 11:03 Oxygen Flow Rate 0 07/12/22 11:03
== END 2022-07-12 11:57 | disposition home or self-care (01) ==
PROVIDERS: Emergency Provider Emergency Medicine Emergency Medical Services; PCP Nurse Practitioner Family
DX: T78.40XA Allergy, unspecified, initial encounter (principal)
CPT/HCPCS: 99283; 99284

== ENCOUNTER 2022-10-05 07:44 | Emergency (ER) | payer BC, SELFPAY ==
[2022-10-05 07:49] VITALS: BP 120/83; PULSE 80; RESP 18; TEMP 37.2; O2SAT 100
--- NOTE | 2022-10-05 08:21 | W.ED.GENAD ---
Discharge Plan Disposition Patient Disposition: Home Condition: Stable Discharge Details Clinical Impression: URI (upper respiratory infection) Primary Care Provider: KATHERIN CEE ED Provider: Nathaly Quinteros Home Meds and New Rx's Prescriptions: New amoxicillin-pot clavulanate 875-125 mg tablet 1 tab PO BID 10 Days Qty: 20 0RF Rx Instructions: Take 1 tablet by mouth twice daily for the next 10 days albuterol sulfate 90 mcg/actuation HFA aerosol inhaler 2 puff IH QID PRN (Reason: shortness of breath or wheezing) Qty: 8 0RF Rx Instructions: Take 1 to 2 puffs every 4-6 hours as needed for wheezing or shortness of breath Continued cetirizine [Zyrtec] 10 mg tablet 10 mg PO DAILY PRN (Reason: allergy symptoms) Qty: 30 3RF acetaminophen 500 mg tablet 500 mg PO Q6H PRN (Reason: pain) Qty: 60 2RF ibuprofen 600 mg tablet 600 mg PO TID PRN (Reason: pain) Qty: 60 0RF Discharge Instructions Instructions: Upper Respiratory Infection (ED) Additional Instructions: Gargle with warm salt water up to 3 times daily as needed. Coat your throat with raw honey. Use the albuterol inhaler as needed as directed. Follow up with primary care provider in 3-5 days. Return to ED sooner if any worsening or concerns. Increase oral fluids. Please take Tylenol or Ibuprofen with food every 4-6 hours as needed for pain and swelling. Referrals: KATHERIN CEE, COMBO WELDER [Primary Care Provider] - 5 days Discharge Data Discharge Date/Time-TO BE ENTERED AT DEPARTURE: 10/05/22 09:01 Medical Decision Making 32-year-old female presents to the ER with a chief complaint of sore throat. Patient reports that she returned from [place] on her honeymoon the end of August. Was diagnosed with COVID, began with a sinus infection like symptoms now having sore throat. She reports she is having trouble sleeping. Associated symptoms include mild ear pain, headache mild cough which has mostly resolved. Past medical history includes anxiety, migraine, hypertension and asthma. She does have a erythemic posterior oropharynx, uvula is midline tonsils are 2+ bilaterally. Positive exudate. Rapid strep negative. Culture sent. Differential diagnosis includes not limited to URI, sinusitis, strep. Will give Augmentin, to treat empirically for URI and strep- like, sinusitis type symptoms based on clinical exam, prescribed albuterol inhaler. Discussed salt water gargles and honey and home care. Patient discharged home by staff developer. In hemodynamically stable condition. This text was generated using [employer] dictation system, please disregard any oddities of phrase or misspellings. Lab Data Lab results reviewed: Yes I reviewed the patient's lab results. Labs: 10/05/22 07:51 Tonsil - Not Specified Group A Streptococcus Culture - Pending HPI General Mode of arrival: ambulatory. Date/Time Provider Initiated Documentation: 10/05/22 07:45. Limitations to Documentation: no limitations. Information obtained by: patient, RN notes reviewed and old records reviewed. HPI Narrative: 32-year-old female presents to the ER with a chief complaint of sore throat. Patient reports that she returned from [place] on her honeymoon the end of August. Was diagnosed with COVID, began with a sinus infection like symptoms now having sore throat. She reports she is having trouble sleeping. Associated symptoms include mild ear pain, headache mild cough which has mostly resolved. She does have a erythemic posterior oropharynx, uvula is midline tonsils are 2+ bilaterally. Positive exudate. Rapid strep negative. Culture sent. And arthroscopy of left knee. Related Data Home Medications Medication Instructions Recorded Confirmed cetirizine 10 mg tablet (Zyrtec) 10 mg PO DAILY PRN allergy 09/15/21 10/05/22 symptoms #30 tabs acetaminophen 500 mg tablet 500 mg PO Q6H PRN pain #60 tabs 11/15/21 10/05/22 ibuprofen 600 mg tablet 600 mg PO TID PRN pain #60 tabs 11/15/21 10/05/22 albuterol sulfate 90 mcg/actuation 2 puff inhalation QID PRN 10/05/22 aerosol inhaler shortness of breath or wheezing #8 grams amoxicillin 875 mg-potassium 1 tab PO BID 10 days #20 tabs 10/05/22 clavulanate 125 mg tablet Previous Rx's Medication Instructions Recorded cetirizine 10 mg tablet (Zyrtec) 10 mg PO DAILY PRN allergy 09/15/21 symptoms #30 tabs acetaminophen 500 mg tablet 500 mg PO Q6H PRN pain #60 tabs 11/15/21 ibuprofen 600 mg tablet 600 mg PO TID PRN pain #60 tabs 11/15/21 albuterol sulfate 90 mcg/actuation 2 puff inhalation QID PRN 10/05/22 aerosol inhaler shortness of breath or wheezing #8 grams amoxicillin 875 mg-potassium 1 tab PO BID 10 days #20 tabs 10/05/22 clavulanate 125 mg tablet Allergies Allergy/AdvReac Type Severity Reaction Status Date / Time sumatriptan [From Imitrex] Allergy Severe Throat Verified 10/05/22 07:52 swelling Pets AdvReac Intermediate Uncoded 10/05/22 07:52 General Stated Complaint: Sorethroat CONSTANTINE: 4 Review of Systems All systems reviewed & are unremarkable except as noted in HPI and below Constitutional Constitutional: Reports headache(s) ENT Ears, Nose, Mouth, and Throat: Reports as per HPI, Reports headache(s), Reports nasal congestion, Denies neck mass and Reports sore throat Respiratory Respiratory: Reports cough (Mild nonproductive) Neurologic Neurologic: Reports headache(s) [facility] All Active Problems (Updated 10/05/22 @ 08:37 by Nathaly Quinteros NP) URI (upper respiratory infection) (Acute) Patient desires (Acute) Encounter for IUD removal (Acute) Chondromalacia of left patella (Acute) Depo-Medrol injection: 01/02/2022 H/O arthroscopy of left knee (Acute 11/15/21) IUD (intrauterine device) in place (Acute) Pre-conception counseling (Acute) Nasal congestion with rhinorrhea (Acute) Fatigue (Acute) Hx of iron deficiency anemia (Acute) Normal spontaneous vaginal delivery (Acute) 10/18/19. Bruce Kahn. ASCUS with positive high risk HPV (Acute) Abnormal uterine bleeding (AUB) (Chronic) 2013 Depo 2014 Diagnostic laparoscopy. Seasonique> OCPs>Mirena, 05/2016 Mirena removed. Continuous OCPs 09/2017 formulation of OCPs changed x2. prefers monthly withdrawal bleed. Anxiety (Chronic 05/30/17) Chronic pelvic pain in female (Chronic 03/17/16) Endometriosis determined by laparoscopy (Chronic 01/27/16) 01/2015 Dr Lee at [facility]. Fulguration of stage ? 1 peritoneal endometriosis implants. 2017. operative laparoscopy. Fulguration of stage 1 lesions. 06/2016. Continuous active OCPs. Migraine without status migrainosus, not intractable (Chronic 01/27/16) Mild intermittent asthma without complication (Chronic 01/27/16) Medical History Acute pain in female pelvis (02/22/16) Asthma does not need inhalers. Dysmenorrhea longstanding. Mirena IUD in place. Continues to have menses. Encounter for surveillance of contraceptive pills (10/12/17) Essential hypertension (09/07/17) Fever of unknown origin (08/21/17) 2017. Neg w/u for infectious etiology. Sx subsided after 1+ monthss. Gestational hypertension Headache in pt's PMHx it is described as a migraine. Pelvic pain 2014 had diagnostic laparoscopy - stage 1 endometriosis 02/2016 repeat diagnostic laparoscopy. Nl pelvis, nl fallopian tubes. 05/2016 [place] Mild disease. Began continuous OCPs. Surgical History Appendectomy (08/24/02) Diagnostic Laproscopy (04/08/14) 04/08/14 Dr. Lee. Dx endometriosis. Review of op note suggests stage 1. Peritoneal implants fulgurated with argon laser. No adhesions. 03/09/16 [facility] Diagnostic laparoscopy for recurrent pelvic pain. Normal pevis. Normal, patent fallopian tubes. 06/29/16 Dr Mccauley laparoscopic presacral neurectomy, excision of peritoneum over L and R sidewall anterior and posterior cul de sac and bilateral ovarian suspension distal radial - ulna joint surgery 2009 H/O arthroscopy of left knee (~12/2019) proctoscopy 06/29/16 at time of Laparoscopic sacral nerve ablation, removal of peritoneal surfaces of L and R side wall and anterior and posterior cul de sac. Nl Proctoscopy. tympanostomy 2000. R ear tube removed 2011. 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 Date GA/Weeks # Preg Succ Route Wgt Sex Labor Lgth Anesthesia Location Prov Complic 10/18/19 38 No vaginal 3515.341 g Female regional MD Richard Delivery Date: 10/18/19 Last Updated by: Samaria Perez MD Induced due to Gest. HTN/PreEclampsia; Second degree laceration, repaired. Shweta Kahn. Exam Narrative Exam Narrative: Constitutional: Alert and oriented x3. Appears stated age. Normal body habitus. Head: Normocephalic, no trauma. Eyes: Pupils PERRL, Red reflex noted, EOM's intact. Eyelids symmetrical without lesions, discharge, or swelling. ENT: Bilateral TM's show effusions, no erythema no bulging, External ear normal to inspection, no mastoid TTP, swelling, or erythema, Nasal turbinates boggy no nasal discharge. Normal dentition, Posterior pharynx erythemic, tonsils 2+, uvula midline, positive exudate. Speaking in full sentences. Chest: RRR, Normal S1, S2, distal pulses intact. Resp: Lungs clear to auscultation bilaterally, no wheezes, rales, or rhonchi. Abdomen: Soft, non-distended, Normoactive bowel sounds all 4 quads. Musculoskeletal: Normal gait, 5/5 strength to all four extremities. Skin: No suspicious rashes or lesions. Capillary refill less than 2 sec. Neurologic: Cranial nerves II-XII intact. Alert and oriented x 3. Motor: No deficits noted. Sensory: Intact bilaterally all 4 extremities. Reflexes: DTR's intact bilaterally.. Hematologic/Lymphatic: No ecchymosis, no lymphadenopathy. Course Vital Signs Vital signs: Vital Signs Temperature 37.2 C 10/05/22 07:49 Pulse 80 10/05/22 07:49 Respiratory Rate 18 10/05/22 07:49 Blood Pressure 120/83 10/05/22 07:49 Pulse Oximetry 100 10/05/22 07:49 Temperature 37.2 C 10/05/22 07:49 Temperature Source Skin 10/05/22 07:49 Pulse 80 10/05/22 07:49 Respiratory Rate 18 10/05/22 07:49 Respiratory Effort Normal 10/05/22 07:52 Blood Pressure 120/83 10/05/22 07:49 Blood Pressure Position Sitting 10/05/22 07:49 Pulse Oximetry 100 10/05/22 07:49 Oxygen Delivery Method Room Air 10/05/22 07:49 Oxygen Flow Rate 0 10/05/22 07:49 Pain Level 4 10/05/22 07:49 Lab/Test Results Lab/Test Results: 10/05/22 07:51 Tonsil - Not Specified Group A Streptococcus Culture - Pending POC Strep Test-MICHELLE(Rapid) Start: 10/05/22 08:00 Freq: Status: Active Protocol: Document 10/05/22 08:00 CARISA (Rec: 10/05/22 08:00 CARISA [id number]) Strep test-MICHELLE(Rapid)-POC POC-Strep test-MICHELLE (Rapid) Negative POC-Strep test-MICHELLE (Rapid) Negative
[2022-10-05] MEDS: Amoxicillin 875/Clav. 125 TAB PO (09:01)
== END 2022-10-05 09:01 | disposition home or self-care (01) ==
PROVIDERS: Emergency Provider Registered Nurse Emergency; PCP Nurse Practitioner Family
DX: J06.9 Acute upper respiratory infection, unspecified (principal); R05.9 Cough, unspecified; Z20.822 Contact with and (suspected) exposure to COVID-19
CPT/HCPCS: 99283; 87081

== ENCOUNTER 2022-11-13 10:14 | Outpatient (REF) | payer BC, SELFPAY | END 2022-11-13 10:15 | disposition home or self-care (01) | LOC: LBN 10:14 | PROVIDERS: PCP Nurse Practitioner Family; Visit Provider Nurse Practitioner Women's Health | DX: R30.0 Dysuria (principal) | CPT/HCPCS: 87086 ==

== ENCOUNTER 2023-10-15 15:40 | Outpatient (REF) | payer BC, SELFPAY ==
--- NOTE | 2023-10-15 15:00 | PAPFT_PTH ---
PATIENT: Sheila Douglas LOC: [facility] U#:[id number] AGE/SX: 33/F ROOM: RE10/15/[address]: Jami Mobley NP : 1990 BED: DIS: 10/15/2023 SPEC #: [id number] RECD: 10/16/23 17:22 STATUS: WAYNE REQ #: [id number] RENATO: 10/15/23 15:[address]: Jami Mobley NP DEPT: [facility] Cytology RECD BY: Batsheva Escamilla ENTERED: 10/16/23 17:23 SP TYPE: PAPFT OTHR DR: KATHERIN CEE NP Tissues: 1 - CX/ENDOCX FOR PAP SMEARS Procedures: PAP THIN PREP/UVM Screening HPV DNA PROBE Comments: [id number] (HPV 16 & 18/45)
== END 2023-10-15 15:41 | disposition home or self-care (01) ==
LOC: LBN 15:40
PROVIDERS: PCP Nurse Practitioner Family; Visit Provider Nurse Practitioner Women's Health
DX: Z12.4 Encounter for screening for malignant neoplasm of cervix (principal)
CPT/HCPCS: 88142; 87624

== ENCOUNTER 2023-10-23 02:54 | Outpatient (CLI) | payer BC, SELFPAY ==
[2023-10-23 11:39] LABS: TSH (W/Ref FT4) 2.32 uIU/mL (0.36-3.74)
[2023-10-25 10:20] LABS: Antimullerian Hormone 2.6 ng/mL (0.58-8.1)
== END 2023-10-23 02:55 | disposition home or self-care (01) ==
LOC: LBO 02:55
PROVIDERS: PCP Nurse Practitioner Family; Visit Provider Nurse Practitioner Women's Health
DX: R53.83 Other fatigue (principal); Z31.9 Encounter for procreative management, unspecified
CPT/HCPCS: 36415; 83520; 84443

== ENCOUNTER 2024-01-22 15:47 | Outpatient (CLI) | payer BC, SELFPAY ==
[2024-01-22 15:54] LABS: HCG Quant, Pregnancy 22 mIU/mL (1-3)
== END 2024-01-22 15:48 | disposition home or self-care (01) ==
LOC: LBO 15:47
PROVIDERS: PCP Nurse Practitioner Family; Visit Provider Advanced Practice Midwife
DX: Z34.90 Encounter for supervision of normal pregnancy, unspecified, unspecified trimester (principal); O20.9 Hemorrhage in early pregnancy, unspecified; N92.6 Irregular menstruation, unspecified
CPT/HCPCS: 36415; 84702

== ENCOUNTER 2024-01-24 03:42 | Outpatient (CLI) | payer BC, SELFPAY ==
[2024-01-24 17:11] LABS: HCG Quant, Pregnancy 6 mIU/mL (1-3)
== END 2024-01-24 03:43 | disposition home or self-care (01) ==
LOC: LBO 03:42
PROVIDERS: PCP Nurse Practitioner Family; Visit Provider Advanced Practice Midwife
DX: O20.9 Hemorrhage in early pregnancy, unspecified (principal); N92.6 Irregular menstruation, unspecified
CPT/HCPCS: 36415; 84702

== ENCOUNTER 2024-01-29 04:58 | Outpatient (CLI) | payer BC, SELFPAY ==
[2024-01-29 13:08] LABS: HCG Quant, Pregnancy 1 mIU/mL (1-3)
== END 2024-01-29 04:59 | disposition home or self-care (01) ==
PROVIDERS: PCP Nurse Practitioner Family; Visit Provider Advanced Practice Midwife
DX: O03.9 Complete or unspecified spontaneous abortion without complication (principal)
CPT/HCPCS: 36415; 84702

== ENCOUNTER 2024-05-16 00:43 | Outpatient (CLI) | payer BC, SELFPAY ==
[2024-05-16 11:14] LABS: Panorama Kit Sent via Fed Ex
[2024-05-16 11:31] LABS: HCT 37.1 % (36.0-46.0); HGB 12.9 g/dL (11.2-15.7); MCH 29.9 pg (27.0-33.0); MCHC 34.8 % (32.0-36.0); MCV 86 fL (80-95); MPV 9.9 fL (8.0-11.0); Platelet Count 258 10^3/uL (130-400); RBC 4.31 10^6/uL (3.93-5.22); RDW 12.4 % (11.7-14.6); RDW-SD 38.7 fL; WBC 8.86 10^3/uL (4.4-10.8)
[2024-05-16 12:30] LABS: Hemoglobin A1C 4.9 % (<5.7)
[2024-05-16 12:39] LABS: ALT 17 U/L (14-59); AST 8 U/L (15-37); Albumin 3.6 g/dL (3.4-5.0); Alkaline Phosphatase 48 U/L (46-116); BUN 6 mg/dL (7-18); Bilirubin, Total 0.34 mg/dL (0.2-1.0); CREATININE 0.6 mg/dL (0.55-1.02); Calcium 9.3 mg/dL (8.5-10.1); Chloride 104 mmol/L (98-107); Estimated GFR 122.99 (mL/min/1.73m2); Glucose 80 mg/dL (74-106); Sodium 139 mmol/L (136-145); TSH (W/Ref FT4) 0.96 uIU/mL (0.36-3.74); Total Protein 6.6 g/dL (6.4-8.2); Uric Acid 2.9 mg/dL (2.6-6.0)
[2024-05-19 09:07] LABS: Hepatitis C Ab w Rflx HCV PCR Negative (Negative)
[2024-05-19 09:21] LABS: Hepatitis B Surface Ag Negative (Negative)
[2024-05-19 10:16] LABS: Rubella IgG Ab (UVM) Positive (See Note); Varicella IgG Antibody Positive (See Note)
[2024-05-19 18:05] LABS: Syphilis IgG w/Reflex Nonreactive (Nonreactive)
[2024-05-21 18:36] LABS: Specimen WB Whole Blood
[2024-05-23 09:08] LABS: HIV-1/2 Ag & Ab Screen Negative (Negative)
[2024-06-02 10:16] LABS: Result Summary NEGATIVE; Specimen WB Whole Blood
== END 2024-05-16 00:44 | disposition home or self-care (01) ==
PROVIDERS: Advanced Practice Midwife; PCP Nurse Practitioner Family; Visit Provider Advanced Practice Midwife
DX: Z34.91 Encounter for supervision of normal pregnancy, unspecified, first trimester; Z87.59 Personal history of other complications of pregnancy, childbirth and the puerperium
CPT/HCPCS: 36415; 80053; 81220; 81222; 81329; 85027; 86787; 86803; 86850; 86900; 86901; 87340; 87389; 83036; 84443; 84550; 86762; 86780

== ENCOUNTER 2024-05-16 10:23 | Outpatient (REF) | payer BC, SELFPAY ==
[2024-05-16 12:21] LABS: COMMENT (LAB VIEW ONLY) 313.18 mg/dL; PROTEIN 21.5 mg/dL; Prot/Crea Ur Ratio 0.06
[2024-05-19 12:14] LABS: Chlamydia Result Negative (Negative); GC Result Negative (Negative)
== END 2024-05-16 10:24 | disposition home or self-care (01) ==
LOC: LBN 10:23
PROVIDERS: PCP Nurse Practitioner Family; Visit Provider Advanced Practice Midwife
DX: Z34.91 Encounter for supervision of normal pregnancy, unspecified, first trimester (principal); Z3A.11 11 weeks gestation of pregnancy
CPT/HCPCS: 87491; 87591; 82565; 84156; 87086

== ENCOUNTER 2024-08-12 15:21 | Outpatient (REF) | payer BC, SELFPAY | END 2024-08-12 15:22 | disposition home or self-care (01) | LOC: LBN 15:21 | PROVIDERS: PCP Nurse Practitioner Family; Visit Provider Obstetrics & Gynecology | DX: Z34.92 Encounter for supervision of normal pregnancy, unspecified, second trimester (principal) | CPT/HCPCS: 87086 ==

== ENCOUNTER 2024-09-03 03:03 | Outpatient (CLI) | payer OTHER, BC, SELFPAY ==
[2024-09-03 14:04] LABS: HCT 34.4 % (36.0-46.0); HGB 11.9 g/dL (11.2-15.7); MCH 31.2 pg (27.0-33.0); MCHC 34.6 % (32.0-36.0); MCV 90 fL (80-95); MPV 9.9 fL (8.0-11.0); Platelet Count 207 10^3/uL (130-400); RBC 3.81 10^6/uL (3.93-5.22); RDW 13.4 % (11.7-14.6); RDW-SD 43.8 fL; WBC 11.18 10^3/uL (4.4-10.8)
[2024-09-03 14:05] LABS: Glucose,1 Hr (Glucola) 121 mg/dL (80-140)
== END 2024-09-03 03:04 | disposition home or self-care (01) ==
LOC: LBO 03:03
PROVIDERS: PCP Nurse Practitioner Family; Visit Provider Obstetrics & Gynecology
DX: Z34.93 Encounter for supervision of normal pregnancy, unspecified, third trimester (principal)
CPT/HCPCS: 36415; 82950; 85027

== ENCOUNTER 2024-09-18 15:32 | Outpatient (CLI) | payer OTHER, BC, SELFPAY ==
[2024-09-18 15:35] LABS: Abs Immature Grans 0.22 10^3/uL (0.0-0.06); HCT 35.2 % (36.0-46.0); HGB 12.2 g/dL (11.2-15.7); Immature Grans % 1.7 %; MCH 30.9 pg (27.0-33.0); MCHC 34.7 % (32.0-36.0); MCV 89 fL (80-95); MPV 9.6 fL (8.0-11.0); Platelet Count 223 10^3/uL (130-400); RBC 3.95 10^6/uL (3.93-5.22); RDW 13.2 % (11.7-14.6); RDW-SD 43.2 fL; WBC 12.62 10^3/uL (4.4-10.8)
[2024-09-18 16:02] LABS: ALT 14 U/L (14-59); AST 12 U/L (15-37); Albumin 2.7 g/dL (3.4-5.0); Alkaline Phosphatase 95 U/L (46-116); Anion Gap 11.3 mmol/L (3-11); BUN 8 mg/dL (7-18); Bilirubin, Total 0.2 mg/dL (0.2-1.0); CO2 22.7 mmol/L (21.0-32.0); Calcium 9.1 mg/dL (8.5-10.1); Chloride 104 mmol/L (98-107); Estimated GFR 127.72 (mL/min/1.73m2); Glucose 93 mg/dL (74-106); Potassium 3.9 mmol/L (3.5-5.1); Sodium 138 mmol/L (136-145); Total Protein 6.7 g/dL (6.4-8.2)
== END 2024-09-18 15:33 | disposition home or self-care (01) ==
LOC: LBO 15:32
PROVIDERS: PCP Nurse Practitioner Family; Visit Provider Obstetrics & Gynecology
DX: Z87.59 Personal history of other complications of pregnancy, childbirth and the puerperium (principal); R03.0 Elevated blood-pressure reading, without diagnosis of hypertension; Z34.93 Encounter for supervision of normal pregnancy, unspecified, third trimester
CPT/HCPCS: 36415; 80053; 82105; 85025

== ENCOUNTER 2024-09-25 20:35 | Outpatient (REF) | payer OTHER, BC, SELFPAY ==
[2024-09-25 20:27] LABS: PROTEIN 28.9 mg/dL; Prot/Crea Ur Ratio 0.17
== END 2024-09-25 20:36 | disposition home or self-care (01) ==
LOC: LBN 20:35
PROVIDERS: PCP Nurse Practitioner Family; Visit Provider Obstetrics & Gynecology
DX: R03.0 Elevated blood-pressure reading, without diagnosis of hypertension (principal)
CPT/HCPCS: 82565; 84156

== ENCOUNTER 2024-10-06 00:25 | Outpatient (CLI) | payer OTHER, BC, SELFPAY ==
--- NOTE | 2024-10-06 07:30 | DI.US_ITS ---
Exam(s) US OB DEANN WEIGHT EXAM: US OB DEANN WEIGHT CLINICAL HISTORY: growth,H/O GEST HYPERTENSION,z87.59. TECHNIQUE: Transabdominal obstetrical ultrasound performed. COMPARISON: US US OB 2-3 TRIMESTER from 07/15/2024 FINDINGS:: Number of fetuses: 1 position: CEPHALIC Placental location: FUNDAL No evidence of previa. BIOMETRIC DATA: BPD: 8.03cm, 32weeks 2days HC: 30.42cm, 33weeks 6days AC: 32.65cm, 36weeks 4days FL: 6.28cm, 32weeks 4days EFW: 2,510.93g, 5lb 10.45oz, greater than 97% Composite Age: 33weeks 6days NELLI: 11/18/2024 Heart Rate: 155bpm Amniotic fluid index: 15.5cm. Visually, amount of fluid is within normal limits. IMPRESSION: size and weight are large for dates. DATA REPOSITORY:
== END 2024-10-06 00:45 ==
PROVIDERS: PCP Nurse Practitioner Family; Visit Provider Obstetrics & Gynecology
DX: Z87.59 Personal history of other complications of pregnancy, childbirth and the puerperium (principal); I10 Essential (primary) hypertension; Z34.83 Encounter for supervision of other normal pregnancy, third trimester; Z3A.36 36 weeks gestation of pregnancy
CPT/HCPCS: 76816

== ENCOUNTER 2024-10-16 07:11 | Outpatient (CLI) | payer OTHER, BC, SELFPAY ==
[2024-10-16 15:02] VITALS: BP 120/69; PULSE 102; TEMP 36.7
[2024-10-16 15:06] VITALS: BP 120/69; PULSE 102
--- NOTE | 2024-10-16 18:00 | W.OBNST ---
Date of service: 10/16/24 Time of Service: 18:00 NST Evaluation Reason for NST Reasons for Nonstress Test: GESTATIONAL HYPERTENSION Gestational Age Gestational Age in Weeks and Days: 37 Weeks and 0Days Test and Monitor Explained Test/Monitor Explained: Test Explained and Monitor Explained Vital Signs Blood Pressure: 120/69 Pulse: 102 Temperature: 98.1 F Urine Results Urine Protein: Positive Urine Ketones: Negative Urine Glucose: Negative Urine Blood: Negative NST Information Date on Monitor: 10/16/24 Time on Monitor: 14:51 Date off Monitor: 10/16/24 Time off Monitor: 15:26 Total Time on Monitor: 35 NST Interventions: PO Hydration NST Evaluation Patient States Movement: Present FHR Baseline: 140 Variability: Moderate 6-25 bpm Accelerations: 15x15 Decelerations: None NST Results: Reactive Note Ultrasound Done: N/A. NST Note NST Reviewed and Verified by: Twila Groves
--- NOTE | 2024-10-21 13:49 | W.OBNST ---
Date of service: 10/16/24 Time of Service: 15:30 NST Evaluation Reason for NST Reasons for Nonstress Test: GESTATIONAL HYPERTENSION Gestational Age Gestational Age in Weeks and Days: 33 Weeks and 4Days Test and Monitor Explained Test/Monitor Explained: Test Explained and Monitor Explained Vital Signs Blood Pressure: 120/69 Pulse: 102 Temperature: 98.1 F Urine Results Urine Protein: Positive Urine Ketones: Negative Urine Glucose: Negative Urine Blood: Negative NST Information Date on Monitor: 10/16/24 Time on Monitor: 14:51 Date off Monitor: 10/16/24 Time off Monitor: 15:26 Total Time on Monitor: 35 NST Interventions: PO Hydration NST Evaluation Patient States Movement: Present FHR Baseline: 140 Variability: Moderate 6-25 bpm Accelerations: 15x15 Decelerations: None NST Results: Reactive Note Ultrasound Done: N/A. NST Note Note: Patient presents for NST. She reports headaches with use of her BP medication (Labetalol 100 mg BID). She will call with BP's on Sunday. NST Reviewed and Verified by: Twila Groves
[2024-10-21 13:51] VITALS: BP 120/69; PULSE 102; TEMP 36.7
[2024-11-12 15:49] VITALS: BP 120/69; PULSE 102; TEMP 36.7
[2024-11-17 17:30] VITALS: BP 120/69; PULSE 102; TEMP 36.7
== END 2024-10-16 15:43 ==
LOC: BCD 07:11 → OBS 15:00
PROVIDERS: PCP Nurse Practitioner Family; Visit Provider Obstetrics & Gynecology
DX: O13.3 Gestational [pregnancy-induced] hypertension without significant proteinuria, third trimester (principal); Z3A.33 33 weeks gestation of pregnancy
CPT/HCPCS: 59025

== ENCOUNTER 2024-10-24 08:05 | Outpatient (CLI) | payer OTHER, BC, SELFPAY ==
[2024-10-24 14:36] VITALS: BP 126/74; PULSE 112; TEMP 209.1; TEMP 98.4
[2024-10-24 14:44] VITALS: BP 126/74; PULSE 112
[2024-10-24 14:54] VITALS: BP 123/73; PULSE 100
[2024-10-24 15:04] VITALS: BP 115/64; PULSE 94
[2024-10-24 15:33] VITALS: BP 126/74; PULSE 112; TEMP 209.1; TEMP 98.4
--- NOTE | 2024-10-24 15:33 | W.OBNST ---
Date of service: 10/24/24 Time of Service: 15:33 NST Evaluation Reason for NST Reasons for Nonstress Test: GESTATIONAL HYPERTENSION Gestational Age Gestational Age in Weeks and Days: 34 Weeks and 5Days Test and Monitor Explained Test/Monitor Explained: Test Explained, Monitor Explained and Patient Verbalized Understanding Vital Signs Blood Pressure: 126/74 Pulse: 112 Temperature: 209.1 F Urine Results Urine Protein: Positive Urine Ketones: Negative Urine Glucose: Negative Urine Blood: Negative NST Information Date on Monitor: 10/24/24 Time on Monitor: 14:32 Date off Monitor: 10/24/24 Time off Monitor: 15:14 Total Time on Monitor: 42 NST Interventions: PO Hydration NST Evaluation Patient States Movement: Present FHR Baseline: 145 Variability: Moderate 6-25 bpm Accelerations: 15x15 Decelerations: None NST Results: Reactive Note Ultrasound Done: N/A. NST Note Note: Category 1, reactive NST. Discussed labor induction. Patient desires exactly at 37 weeks. This will be performed when appropriate staffing, shortly after 37 weeks gestation. All questions answered. NST Reviewed and Verified by: Roberta Barriga
== END 2024-10-24 15:23 ==
LOC: BCD 08:05 → OBS 14:34
PROVIDERS: PCP Nurse Practitioner Family; Visit Provider Obstetrics & Gynecology
DX: O13.3 Gestational [pregnancy-induced] hypertension without significant proteinuria, third trimester (principal); Z3A.34 34 weeks gestation of pregnancy
CPT/HCPCS: 59025

== ENCOUNTER 2024-10-30 07:20 | Outpatient (CLI) | payer OTHER, BC, SELFPAY ==
[2024-10-30 14:37] VITALS: BP 136/80; PULSE 111
[2024-10-30 14:50] VITALS: BP 136/80; PULSE 111; RESP 16; TEMP 36.4; TEMP 36.5
[2024-10-30 15:27] VITALS: BP 136/80; PULSE 111; TEMP 36.5
--- NOTE | 2024-10-30 15:27 | W.OBNST ---
Date of service: 10/30/24 Time of Service: 15:27 NST Evaluation Reason for NST Reasons for Nonstress Test: GESTATIONAL HYPERTENSION Gestational Age Gestational Age in Weeks and Days: 35 Weeks and 4Days Test and Monitor Explained Test/Monitor Explained: Test Explained, Monitor Explained and Patient Verbalized Understanding Vital Signs Blood Pressure: 136/80 Pulse: 111 Temperature: 97.7 F Urine Results Urine Protein: Positive Urine Ketones: Positive Urine Glucose: Negative Urine Blood: Positive NST Information Date on Monitor: 10/30/24 Time on Monitor: 14:20 Date off Monitor: 10/30/24 Time off Monitor: 14:50 Total Time on Monitor: 30 NST Interventions: None NST Evaluation Patient States Movement: Present FHR Baseline: 135 Variability: Moderate 6-25 bpm Accelerations: 10x10 Decelerations: None NST Results: Reactive Note Ultrasound Done: N/A. NST Note Note: Category 1, reactive NST. Timing of induction discussed. Group B strep culture performed. Patient will continue twice-weekly nonstress testing. Anticipate labor induction shortly after 37 weeks depending on cervix and need for cervical ripening. Would anticipate 11/10/2024 NST Reviewed and Verified by: Roberta Barriga
[2024-10-30 18:38] LABS: PROTEIN 26.0 mg/dL; Prot/Crea Ur Ratio 0.43
[2024-10-31 11:53] VITALS: BP 105/59; PULSE 99
== END 2024-10-30 15:45 | disposition home health service (06) ==
LOC: BCD 07:24 → OBS 14:22
PROVIDERS: PCP Nurse Practitioner Family; Visit Provider Obstetrics & Gynecology
DX: Z87.59 Personal history of other complications of pregnancy, childbirth and the puerperium (principal); O13.3 Gestational [pregnancy-induced] hypertension without significant proteinuria, third trimester; Z3A.35 35 weeks gestation of pregnancy
CPT/HCPCS: 59025; 82565; 84156; 87081

== ENCOUNTER 2024-10-30 10:26 | Outpatient (CLI) | payer OTHER, BC, SELFPAY ==
--- NOTE | 2024-10-30 07:15 | DI.US_ITS ---
Exam(s) US OB DEANN WEIGHT EXAM: US OB DEANN WEIGHT CLINICAL HISTORY: Growth and DEANN,chronic hypertension in ,O10.919. TECHNIQUE: Transabdominal obstetrical ultrasound performed. COMPARISON: US US OB 2-3 TRIMESTER from 07/15/2024 US US OB DEANN WEIGHT from 10/06/2024 FINDINGS:: Number of fetuses: 1 position: CEPHALIC Placental location: ANT FUND No evidence of previa. BIOMETRIC DATA: BPD: 8.71cm, 35weeks 1day HC: 32.4cm, 36weeks 5days AC: 33.57cm, 37weeks 3days FL: 7.1cm, 36weeks 3days EFW: 3,048.38g, 6lb 11.9oz, 82.9% Composite Age: 36weeks 3days NELLI: 11/24/2024 Heart Rate: 149bpm Amniotic fluid index: 9.84cm. Visually, at the lower normal range. IMPRESSION: size and weight are within the expected range. DEANN at low normal range DATA REPOSITORY:
== END 2024-10-30 10:46 ==
LOC: DI 10:27
PROVIDERS: PCP Nurse Practitioner Family; Visit Provider Obstetrics & Gynecology
DX: I10 Essential (primary) hypertension (principal); Z34.93 Encounter for supervision of normal pregnancy, unspecified, third trimester; Z3A.36 36 weeks gestation of pregnancy
CPT/HCPCS: 76816

== ENCOUNTER 2024-11-02 12:04 | Outpatient (CLI) | payer OTHER, BC, SELFPAY ==
[2024-11-02 14:56] VITALS: BP 139/89; PULSE 100; RESP 14
[2024-11-02 14:57] VITALS: PULSE 114; O2SAT 98
[2024-11-02 15:20] VITALS: BP 138/89; PULSE 100
[2024-11-02 15:20] LABS: Glucose Negative (Negative)
[2024-11-02 15:28] LABS: RBC Negative HPF (0-2); WBC 0-2 HPF (0-5)
--- NOTE | 2024-12-16 14:12 | W.OBNST ---
Date of service: 11/02/24 Time of Service: 15:00 NST Evaluation Reason for NST Reasons for Nonstress Test: GESTATIONAL HYPERTENSION Gestational Age Gestational Age in Weeks and Days: 37 Weeks and 0Days Test and Monitor Explained Test/Monitor Explained: Test Explained and Patient Verbalized Understanding Vital Signs Blood Pressure: 138/89 Pulse: 100 Urine Results Urine Protein: Positive Urine Ketones: Positive Urine Glucose: Negative Urine Blood: Negative NST Information Date on Monitor: 11/02/24 Time on Monitor: 14:56 Date off Monitor: 11/02/24 Time off Monitor: 15:20 Total Time on Monitor: 24 NST Interventions: None Contraction Frequency: 1 in 20 min NST Evaluation Patient States Movement: Present FHR Baseline: 135 Variability: Moderate 6-25 bpm Accelerations: 15x15 Decelerations: None NST Results: Reactive Note Ultrasound Done: N/A. NST Note NST Reviewed and Verified by: Penelope Moseley
[2024-12-16 14:13] VITALS: BP 138/89; PULSE 100
== END 2024-11-02 15:33 ==
LOC: BCD 12:05 → OBS 14:48
PROVIDERS: PCP Nurse Practitioner Family; Visit Provider Obstetrics & Gynecology
DX: O13.3 Gestational [pregnancy-induced] hypertension without significant proteinuria, third trimester (principal); Z3A.37 37 weeks gestation of pregnancy
CPT/HCPCS: 59025; 81003; 81015

== ENCOUNTER 2024-11-05 07:26 | Outpatient (CLI) | payer OTHER, BC, SELFPAY ==
[2024-11-05 13:41] VITALS: BP 137/99; PULSE 106
[2024-11-05 13:58] VITALS: BP 155/94; PULSE 109
[2024-11-05 15:34] VITALS: BP 137/99; PULSE 106
--- NOTE | 2024-12-16 14:09 | W.OBNST ---
Date of service: 11/05/24 Time of Service: 14:00 NST Evaluation Reason for NST Reasons for Nonstress Test: GESTATIONAL HYPERTENSION Gestational Age Gestational Age in Weeks and Days: 37 Weeks and 0Days Test and Monitor Explained Test/Monitor Explained: Test Explained, Monitor Explained and Patient Verbalized Understanding Vital Signs Blood Pressure: 137/99 Pulse: 106 Urine Results Urine Protein: Positive Urine Ketones: Positive Urine Glucose: Positive Urine Blood: Positive NST Information Date on Monitor: 11/05/24 Time on Monitor: 13:41 Date off Monitor: 11/05/24 Time off Monitor: 14:12 Total Time on Monitor: 31 NST Interventions: None Contraction Frequency: irregular NST Evaluation Patient States Movement: Present FHR Baseline: 135 Variability: Moderate 6-25 bpm Accelerations: 15x15 Decelerations: None NST Results: Reactive Note Ultrasound Done: N/A. NST Note NST Reviewed and Verified by: Penelope Moseley
[2024-12-16 14:10] VITALS: BP 137/99; PULSE 106
== END 2024-11-05 14:40 ==
LOC: BCD 07:27 → OBS 13:38
PROVIDERS: PCP Nurse Practitioner Family; Visit Provider Obstetrics & Gynecology
DX: O13.3 Gestational [pregnancy-induced] hypertension without significant proteinuria, third trimester (principal); Z3A.37 37 weeks gestation of pregnancy
CPT/HCPCS: 59025

== ENCOUNTER 2024-11-05 21:15 | Observation (INO) | payer OTHER, BC, SELFPAY ==
[2024-11-05] VITALS (7 sets, daily range): BP systolic 117–166; BP diastolic 69–88; PULSE 83–105; O2SAT 98
[2024-11-05 20:05] LABS: HCT 32.2 % (36.0-46.0); HGB 11.0 g/dL (11.2-15.7); MCH 29.5 pg (27.0-33.0); MCHC 34.2 % (32.0-36.0); MCV 86 fL (80-95); MPV 10.4 fL (8.0-11.0); Platelet Count 229 10^3/uL (130-400); RBC 3.73 10^6/uL (3.93-5.22); RDW 13.0 % (11.7-14.6); RDW-SD 40.4 fL; WBC 12.33 10^3/uL (4.4-10.8)
[2024-11-05 20:15] LABS: PROTEIN 30.0 mg/dL; Prot/Crea Ur Ratio 0.32
[2024-11-05 20:20] LABS: ALT 14 U/L (14-59); AST 13 U/L (15-37); Albumin 2.7 g/dL (3.4-5.0); Alkaline Phosphatase 141 U/L (46-116); Anion Gap 10.9 mmol/L (3-11); BUN 7 mg/dL (7-18); Bilirubin, Total 0.3 mg/dL (0.2-1.0); CO2 22.1 mmol/L (21.0-32.0); Calcium 8.7 mg/dL (8.5-10.1); Chloride 103 mmol/L (98-107); Estimated GFR 127.72 (mL/min/1.73m2); Glucose 112 mg/dL (74-106); LDH 149 U/L (81-234); Potassium 3.7 mmol/L (3.5-5.1); Sodium 136 mmol/L (136-145); Total Protein 6.4 g/dL (6.4-8.2); Uric Acid 4.5 mg/dL (2.6-6.0)
--- NOTE | 2024-11-05 21:24 | HPE_ITS ---
Date of service: 11/05/24 Time of Service: 21:00 Assessment and Plan Assessment and plan (1) Pre-eclampsia: Status: Acute Assessment and plan: Diagnosis based on elevated blood pressures from baseline (though not severe range) and the presence of elevated protein creatinine ratio (0.3-0.4). Preeclampsia labs reassuring this evening including a uric acid and LDH. status is reactive and reassuring. Will initiate a 24-hour urine protein. Discussed prolonged monitoring of blood pressures overnight to which patient is agreeable. (2) contractions: Status: Acute Assessment and plan: Patient complains of painful contractions that take her breath away. Cervix unchanged from earlier in the day. Will continue to monitor overnight. Discussed pros and cons of betamethasone; discussed some evidence showing concerns for gastrointestinal pathology when steroids administered in the 36- week. Ultimately decided to not administer betamethasone for now particularly in light of her lack of evidence of labor. History of Present Illness Narrative: 34-year-old -0-0-1 ( x 1) presents at 36 weeks and 2 days as dated by FDP equal to 7 week US presented to L&D for further assessment of chronic hypertension with superimposed preeclampsia without severe features. Patient was assessed earlier in the day and did not have blood work done. She returns this evening for blood work; she is without complaints of preeclamptic symptoms. She does report contractions, but she denies any leakage of fluid or bleeding. She reports good movement. Review of Systems All systems reviewed & are unremarkable except as noted in HPI and below PFSH All Active Problems (Updated 11/06/24 @ 18:27 by Twila Groves DO) Pre-eclampsia (Acute) contractions (Acute) Chronic hypertension with superimposed preeclampsia (Acute) Essential hypertension (Chronic 09/07/17) Anxiety (Chronic 05/30/17) last time on medication was 2022 (Acute) Medical History (Updated 11/06/24 @ 18:27 by Twila Groves DO) History of gestational hypertension History of infertility Complete miscarriage At 4-5 wks from LMP Chondromalacia of left patella Depo-Medrol injection: 01/02/2022 ASCUS with positive high risk HPV Abnormal uterine bleeding (AUB) 2013 Depo 2014 Diagnostic laparoscopy. Seasonique> OCPs>Mirena, 05/2016 Mirena removed. Continuous OCPs 09/2017 formulation of OCPs changed x2. prefers monthly withdrawal bleed. Endometriosis determined by laparoscopy (01/27/16) 01/2015 Dr Lee at [facility]. Fulguration of stage ? 1 peritoneal endometriosis implants. 2017. operative laparoscopy. Fulguration of stage 1 lesions. 06/2016. Continuous active OCPs. Migraine without status migrainosus, not intractable (01/27/16) Mild intermittent asthma without complication (01/27/16) Fever of unknown origin (08/21/17) 2016. Neg w/u for infectious etiology. Sx subsided after 1+ monthss. Asthma does not need inhalers. Headache in pt's PMHx it is described as a migraine. Pelvic pain 2014 had diagnostic laparoscopy - stage 1 endometriosis 02/2016 repeat diagnostic laparoscopy. Nl pelvis, nl fallopian tubes. 05/2016 repeat laparoscopy in [place]. Mild disease. Began continuous OCPs. Surgical History (Updated 01/22/24 @ 14:47 by Alma De La Rosa CNM) H/O arthroscopy of left knee (11/15/21) H/O arthroscopy of left knee () tympanostomy 2000. R ear tube removed 2011. proctoscopy 06/29/16 at time of Laparoscopic sacral nerve ablation, removal of peritoneal surfaces of L and R side wall and anterior and posterior cul de sac. Nl Proctoscopy. distal radial - ulna joint surgery 2009 Diagnostic Laproscopy (04/08/14) 04/08/14 Dr. Lee. Dx endometriosis. Review of op note suggests stage 1. Peritoneal implants fulgurated with argon laser. No adhesions. 03/09/16 [facility] Diagnostic laparoscopy for recurrent pelvic pain. Normal pevis. Normal, patent fallopian tubes. 06/29/16 Dr Mccauley laparoscopic presacral neurectomy, excision of peritoneum over L and R sidewall anterior and posterior cul de sac and bilateral ovarian suspension Appendectomy (08/24/02) Family History (Updated 05/16/24 @ 10:09 by Betzy Chow CNM) Mother Diabetes Essential hypertension Hypothyroid Father Essential hypertension Grandmother Diabetes Maternal Aunt Diabetes Maternal Grandfather Heart disease Sister Diabetes Social History (Updated 05/16/24 @ 10:11 by Betzy Chow CNM) Smoking/Tobacco Use Status: Never Smoking risk assessment performed?: Yes Alcohol Intake: never Details: Does not drink to excess Drug use: Never Substance use type: does not use Household members: spouse, significant other and other Details: Dwaine DengShanthi Housing: house Number of Children: 1 Education Level: college Do you need help understanding health information?: Never 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, 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 Pets and animals: No Sexually active: Yes Do you think of yourself as: straight/heterosexual Current gender identity: female What type of physical activity do you participate in: aerobic and weight lifting Duration: 30-45 minutes/day Frequency: 3-4 times per week Special fartun needs: No Agree to transfusion: Yes Do you feel safe at home: Yes Do you feel safe in your relationship?: Yes Female Reproductive History Menstrual Age of Menarche: 14 control method: none History History 2 3 Para 1 Hx # Term Pregnancies 1 Multiple births Hx # Pregnancies Ectopic pregnancies AB induced Hx Number of Living Children 1 AB spontaneous 1 Past Pregnancies Del. Date GA/Weeks # Preg Succ Route Wgt Sex Labor Lgth Anesth esia Location Prov [facility] 10/18/19 38 No vaginal 7 lb 12 oz Female [facility] 01/22/24 5 No Delivery Date: 10/18/19 Last Updated by: Alma De La Rosa CNM Induced due to Gest. HTN/PreEclampsia; Second degree laceration, repaired. Shweta Kahn. slow infant weight gain Meds Allergies and Home Medications Allergies Allergy/AdvReac Type Severity Reaction Status Date / Time sumatriptan (From Imitrex) Allergy Severe Throat Verified 10/06/24 14:46 swelling Pets AdvReac Intermediate Other (See Uncoded 10/06/24 14:46 Comment) Home Medications ?Medication ?Instructions ?Recorded ?Confirmed ?Type cetirizine 10 mg tablet (Zyrtec) 10 mg PO DAILY PRN al lergy 09/15/21 11/05/24 Rx symptoms #30 tabs vits no.126-ferrous fum tab PO 04/18/2411/05 History 28 mg iron-folic acid 800 mcg tablet (Classic ) aspirin 81 mg tablet,delayed 162 mg PO DAILY 06/17/24 11/05/24 History release (Adult Aspirin Regimen) blood pressure test kit-large #1 ea 09/25/24 11/05/24 Rx (Advocate Blood Pressure Monitor kit) omeprazole 20 mg capsule,delayed 20 mg PO DAILY 30 day s #30 caps 10/16/24 11/05/24 Rx release Exam Narrative Exam Narrative: General: Well-nourished female in no immediate distress Pulmonary: No overt respiratory distress Abdomen: Gravid, soft, nontender Extremities: Trace edema noted equally bilaterally SVE: 1 to 2 cm/thick/high/posterior/medium, cephalic Results Labs 11/05/24 19:55 11/05/24 19:55 Labs: Laboratory Results - last 24 hr 11/05/24 11/05/24 19:45 19:55 WBC 12.33 H RBC 3.73 L Hgb 11.0 L Hct 32.2 L MCV 86 MCH 29.5 MCHC 34.2 RDW 13.0 Plt Count 229 MPV 10.4 Sodium 136 Potassium 3.7 Chloride 103 Carbon Dioxide 22.1 Anion Gap 10.9 BUN 7 Creatinine 0.5 L Est GFR (CKD-EPI 2020) 127.72 Glucose 112 H Uric Acid 4.5 Calcium 8.7 Total Bilirubin 0.3 AST 13 L ALT 14 Alkaline Phosphatase 141 H Lactate Dehydrogenase 149 Total Protein 6.4 Albumin 2.7 L Ur Random Creatinine 91.52 U Random Total Protein 30.0 U [place] Prot/Creat Ratio 0.32 Blood type: A+ Antibody screen negative Varicella: Immune Rubella: Immune Syphilis: Nonreactive Hepatitis B surface antigen: Negative Hepatitis C antibody: Negative HIV testing: Negative Gonorrhea chlamydia testing: Negative Cystic fibrosis carrier: Negative SMA carrier: Negative GBS testing: Negative as of 10/30/2024 Past blood sugar testing Last Vital Signs Pulse 91 H 11/05/24 21:06 BP 143/84 H 11/05/24 21:06 WW Pocus Exam Exam testing Date/Time of Exam: Date of exam: 11/05/2024 Time of exam: 2029 NELLI Calculator 2 Estimated Delivery Date Method Current WG Current Estimate 11/30/24 Ultrasound #2 36w 4d Other Estimates 11/27/24 LMP (Certain) 37w 0d 11/30/24 Ultrasound #1 36w 4d Other Comments: A complete transabdominal ultrasound is performed. DEANN performed: Quadrant 1- 0.945 cm, quadrant 2-3.53 cm, quadrant 3-2.8 cm, quadrant 4-3.11 cm, total DEANN 10.4 cm. BPD?8.84 cm, head circumference?33.7 cm, abdominal circumference?31.8 cm, femur length?6.35 cm. EFW per [place] 2633 g +/- 384 g (56 percentile). C ephalic positioning. Time Spent Time spent with Patient: 40-54 minutes Time was spent: preparing to see the patient(eg.review tests), obtaining and/or reviewing separately otained hiistory, ordering medications,tests, procedures, referring, communicating with other health customer care coordinator, indepentently interpreting results, counseling the patient and care coordination
[2024-11-05] MEDS: Acetaminophen 325 MG TAB 650 MG PO (23:14)
[2024-11-05] MEDS: diphenhydrAMINE 25 MG CAP PO (23:14)
[2024-11-06] VITALS (10 sets, daily range): BP systolic 127–157; BP diastolic 63–97; PULSE 85–102; O2SAT 96
--- NOTE | 2024-11-06 08:50 | DSE_ITS ---
Date of service: 11/06/24 Time of Service: 08:50 Discharge Plan Disposition Condition: Good Condition: Good Discharge Details Reason For Visit: pre-eclampsia without severe features Admit Date/Time: 11/05/24 21:15 Admit Provider: Twila Groves Attending Provider: Twila Grvoes Primary Care Provider: KATHERIN CEE [facility] Course Hospital Course: 34 yo ( x1) at 36 weeks presented to L&D on Sunday, November 06, 2024 for follow up labs for pre-eclampsia. Labs were all appropriate and stable (protein:creatinine ratio of 0.3+). NST was reassuring, and a physician- performed US found an DEANN of 10.4 and EFW in the 56%tile. She was monitored overnight and, while her blood pressures were notably labile ranging from 110's to 150's / 60's to 90's, she did not have severe range pressures. Morning pressures averaged 140-150's / 80-90's. She denied signs/symptoms of preE. 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 She was discharged morning with instructions for completing her 24 hour urine, instructions for close follow up (repeat NST and BP Sunday), and strong encouragement to have a low threshold for immediate re-evaluation if concerning s/sx arise. PreE precautions reviewed. Home Meds and New Rx's Prescriptions: Continued cetirizine [Zyrtec] 10 mg tablet 10 mg PO DAILY PRN (Reason: allergy symptoms) Qty: 30 3RF Classic 28 mg iron- 800 mcg tablet PO omeprazole 20 mg capsule,delayed release(DR/EC) 20 mg PO DAILY 30 Days Qty: 30 1RF aspirin [Adult Aspirin Regimen] 81 mg tablet,delayed release (DR/EC) 162 mg PO DAILY (DME) blood pressure test kit-large [Advocate Blood Pressure Monitr] Kit See Rx Instructions .Route Qty: 1 0RF Rx Instructions: As directed- twice daily test Discontinued nifedipine 30 mg tablet extended release 30 mg PO DAILY Qty: 30 0RF Discharge Instructions Instructions: Preeclampsia Additional Instructions: Please seek immediate medical evaluation if any of the following apply: - Persistent headaches - Persistent nausea and/or vomiting - Right upper quadrant pain - Visual changes - In general sense of not feeling right - Any other concerning signs or symptoms - Leakage of fluid from the vagina - Vaginal bleeding - A decrease in movement - Regular contractions that occur at a predictable rate that steadily worsened over the course of an hour Activity:: Activity as Tolerated Activity:: Activity as Tolerated Equipment/Supplies:: No Equipment Needed Diet:: As Tolerated Discharge Data Discharge Physician: Twila Groves OB:DS Summary Contraception Discussed Contraception Discussed: No, Status at Discharge Functional status at discharge: independent ambulation Overall status at discharge: patient is back to baseline Mental Status: mental status grossly normal Speech and Movement: speech and movement normal Mood: congruent mood Affect: normal affect Exam Physical Exam Vital signs: Pulse BP Pulse Ox 96 H 143/97 H 98 11/06/24 08:31 11/06/24 08:31 11/05/24 23:38 Narrative: General: Well-nourished female in no immediate distress Pulmonary: No respiratory distress Abdomen: Gravid, soft, nontender Extremities: Trace edema noted equally bilaterally Psych: Appropriate, cooperative [facility] All Active Problems (Updated 11/05/24 @ 15:51 by Penelope Moseley MD) Chronic hypertension with superimposed preeclampsia (Acute) Essential hypertension (Chronic 09/07/17) Anxiety (Chronic 05/30/17) last time on medication was 2022 (Acute) Medical History (Updated 11/05/24 @ 15:51 by Penelope Moseley MD) History of gestational hypertension History of infertility Complete miscarriage At 4-5 wks from LMP Chondromalacia of left patella Depo-Medrol injection: 01/02/2022 ASCUS with positive high risk HPV Abnormal uterine bleeding (AUB) 2013 Depo 2014 Diagnostic laparoscopy. Seasonique> OCPs>Mirena, 05/2016 Mirena removed. Continuous OCPs 09/2017 formulation of OCPs changed x2. prefers monthly withdrawal bleed. Endometriosis determined by laparoscopy (01/27/16) 01/2015 Dr Lee at [facility]. Fulguration of stage ? 1 peritoneal endometriosis implants. 2016. operative laparoscopy. Fulguration of stage 1 lesions. 06/2016. Continuous active OCPs. Migraine without status migrainosus, not intractable (01/27/16) Mild intermittent asthma without complication (01/27/16) Fever of unknown origin (08/21/17) 2017. Neg w/u for infectious etiology. Sx subsided after 1+ monthss. Asthma does not need inhalers. Headache in pt's PMHx it is described as a migraine. Pelvic pain 2014 had diagnostic laparoscopy - stage 1 endometriosis 02/2016 repeat diagnostic laparoscopy. Nl pelvis, nl fallopian tubes. 05/2016 repeat laparoscopy in [place]. Mild disease. Began continuous OCPs. Surgical History (Updated 01/22/24 @ 14:47 by Alma De La Rosa CNM) H/O arthroscopy of left knee (11/15/21) H/O arthroscopy of left knee () tympanostomy 2000. R ear tube removed 2011. proctoscopy 06/29/16 at time of Laparoscopic sacral nerve ablation, removal of peritoneal surfaces of L and R side wall and anterior and posterior cul de sac. Nl Proctoscopy. distal radial - ulna joint surgery 2009 Diagnostic Laproscopy (04/08/14) 04/08/14 Dr. Lee. Dx endometriosis. Review of op note suggests stage 1. Peritoneal implants fulgurated with argon laser. No adhesions. 03/09/16 [facility] Diagnostic laparoscopy for recurrent pelvic pain. Normal pevis. Normal, patent fallopian tubes. 06/29/16 Dr Mccauley laparoscopic presacral neurectomy, excision of peritoneum over L and R sidewall anterior and posterior cul de sac and bilateral ovarian suspension Appendectomy (08/24/02) Family History (Updated 05/16/24 @ 10:09 by Betzy Chow CNM) Mother Diabetes Essential hypertension Hypothyroid Father Essential hypertension Grandmother Diabetes Maternal Aunt Diabetes Maternal Grandfather Heart disease Sister Diabetes Social History (Updated 05/16/24 @ 10:11 by Betzy Chow CNM) Smoking/Tobacco Use Status: Never Smoking risk assessment performed?: Yes Alcohol Intake: never Details: Does not drink to excess Drug use: Never Substance use type: does not use Household members: spouse, significant other and other Details: Shanthi Mota Housing: house Number of Children: 1 Education Level: college Do you need help understanding health information?: Never 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[employer], 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 Pets and animals: No Sexually active: Yes Do you think of yourself as: straight/heterosexual Current gender identity: female What type of physical activity do you participate in: aerobic and weight lifting Duration: 30-45 minutes/day Frequency: 3-4 times per week Special fartun needs: No Agree to transfusion: Yes Do you feel safe at home: Yes Do you feel safe in your relationship?: Yes Female Reproductive History Menstrual Age of Menarche: 14 control method: none History History 3 Para 1 Hx # Term Pregnancies 1 Multiple births Hx # Pregnancies Ectopic pregnancies AB induced Hx Number of Living Children 1 AB spontaneous 1 Past Pregnancies Del. Date GA/Weeks # Preg Succ Route Wgt Sex Labor Lgth Anesth esia Location Prov [facility] 10/18/19 38 No vaginal 7 lb 12 oz Female [facility] 01/22/24 5 No Delivery Date: 10/18/19 Last Updated by: Alma De La Rosa CNM Induced due to Gest. HTN/PreEclampsia; Second degree laceration, repaired. Shweta Kahn. slow weight gain DS: Data Vitals/I&O Vitals and I&O: Vital Signs Pulse 96 H 11/06/24 08:31 Pulse Rhythm Regular 11/05/24 22:02 Blood Pressure 143/97 H 11/06/24 08:31 Pulse Oximetry 98 11/05/24 23:38 Intake & Output 11/05/24 11/05/24 11/06/24 11:59 23:59 11:59 Weight 198 lb 2 oz Other: Urine Color Yellow Data Completed and Pending Labs on day of discharge: Labs from last 24 hours 11/05/24 11/05/24 19:55 19:45 WBC 12.33 H RBC 3.73 L Hgb 11.0 L Hct 32.2 L MCV 86 MCH 29.5 MCHC 34.2 RDW 13.0 Plt Count 229 MPV 10.4 Sodium 136 Potassium 3.7 Chloride 103 Carbon Dioxide 22.1 Anion Gap 10.9 BUN 7 Creatinine 0.5 L Est GFR (CKD-EPI 2020) 127.72 Glucose 112 H Uric Acid 4.5 Calcium 8.7 Total Bilirubin 0.3 AST 13 L ALT 14 Alkaline Phosphatase 141 H Lactate Dehydrogenase 149 Total Protein 6.4 Albumin 2.7 L Ur Random Creatinine 91.52 U Random Total Protein 30.0 U [place] Prot/Creat Ratio 0.32
--- NOTE | 2024-11-06 09:44 | PGE_ITS ---
Date of Service Date of service: 11/06/24 Time of Service: 09:44 Assessment and Plan Assessment and plan (1) contractions: Status: Acute Assessment and plan: Patient called out stating that her contraction pattern had returned and she was feeling uncomfortable; breathing through contractions. Repeat SVE finds her 1- 2, thick, high, posterior, medium. Baby is noted to be cephalic. We discussed options for morphine rest versus Ambien versus continued monitoring. Patient would like to do morphine rest with Ambien. Will do continuous monitoring. IV established. 4 mg IV morphine with 5 mg Ambien. Reassess after few hours. Objective Last Vital Signs Pulse 96 H 11/06/24 08:31 BP 143/97 H 11/06/24 08:31 Pulse Ox 98 11/05/24 23:38 Laboratory Results - last 24 hr 11/05/24 11/05/24 19:45 19:55 WBC 12.33 H RBC 3.73 L Hgb 11.0 L Hct 32.2 L MCV 86 MCH 29.5 MCHC 34.2 RDW 13.0 Plt Count 229 MPV 10.4 Sodium 136 Potassium 3.7 Chloride 103 Carbon Dioxide 22.1 Anion Gap 10.9 BUN 7 Creatinine 0.5 L Est GFR (CKD-EPI 2020) 127.72 Glucose 112 H Uric Acid 4.5 Calcium 8.7 Total Bilirubin 0.3 AST 13 L ALT 14 Alkaline Phosphatase 141 H Lactate Dehydrogenase 149 Total Protein 6.4 Albumin 2.7 L Ur Random Creatinine 91.52 U Random Total Protein 30.0 U [place] Prot/Creat Ratio 0.32 Time Spent with Patient Time Spent with Patient: 25-34 minutes Time was spent: preparing to see the patient(eg.review tests), obtaining and/or reviewing separately otained hiistory, ordering medications,tests, procedures, referring, communicating with other health healthcare management consultant, indepentently interpreting results, counseling the patient and care coordination
[2024-11-06] MEDS: Zolpidem 5 MG TAB PO (10:51)
[2024-11-06] MEDS: MORPHine 4 MG/ML SYR IVP (10:52)
[2024-11-06] MEDS: Acetaminophen 650 MG SUPP PR (14:15)
== END 2024-11-06 18:15 | disposition home or self-care (01) ==
LOC: BCD 21:42 → OBS 21:43
PROVIDERS: Admitting Provider Obstetrics & Gynecology; PCP Nurse Practitioner Family; Visit Provider Obstetrics & Gynecology
DX: O47.03 False labor before 37 completed weeks of gestation, third trimester (principal); O14.03 Mild to moderate pre-eclampsia, third trimester; O99.343 Other mental disorders complicating pregnancy, third trimester; F41.9 Anxiety disorder, unspecified; Z3A.36 36 weeks gestation of pregnancy
CPT/HCPCS: 36415; 80053; 85027; 86850; 86900; 86901; 59025; 82565; 83615; 84156; 84550; G0378; J2270; J3490

== ENCOUNTER 2024-11-06 18:51 | Outpatient (REF) | payer OTHER, BC, SELFPAY ==
[2024-11-07 19:44] LABS: PROTEIN 27.9 mg/dL (0.0-11.9)
[2024-11-07 19:47] LABS: TOTAL PROTEIN,URINE TIMED 530.1 mg/24hr (0.0-149.1); Total Volume 1900 ml
== END 2024-11-06 18:52 | disposition home or self-care (01) ==
LOC: LBN 18:51
PROVIDERS: PCP Nurse Practitioner Family; Visit Provider Obstetrics & Gynecology
DX: O11.5 Pre-existing hypertension with pre-eclampsia, complicating the puerperium (principal)
CPT/HCPCS: 81050; 84155

== ENCOUNTER 2024-11-08 13:27 | Outpatient (CLI) | payer OTHER, BC, SELFPAY ==
[2024-11-08 13:33] VITALS: BP 132/75; PULSE 105; TEMP 38.8
[2024-11-08 13:42] VITALS: BP 132/75; PULSE 105
--- NOTE | 2024-11-08 14:47 | W.OBNST ---
Date of service: 11/08/24 Time of Service: 14:47 NST Evaluation Reason for NST Reasons for Nonstress Test: GESTATIONAL HYPERTENSION Gestational Age Gestational Age in Weeks and Days: 36 Weeks and 6Days Test and Monitor Explained Test/Monitor Explained: Test Explained Vital Signs Blood Pressure: 132/75 Pulse: 105 Temperature: 101.8 F Urine Results Urine Protein: Negative Urine Ketones: Positive Urine Glucose: Negative Urine Blood: Positive NST Information Date on Monitor: 11/08/24 Time on Monitor: 13:30 Date off Monitor: 11/08/24 Time off Monitor: 14:00 Total Time on Monitor: 30 NST Interventions: PO Hydration NST Evaluation Patient States Movement: Present FHR Baseline: 125 Variability: Moderate 6-25 bpm Accelerations: 15x15 Decelerations: None NST Results: Reactive Note Ultrasound Done: N/A. NST Note Note: Category 1 nonstress test, reactive. Declines cervical examination. Blood pressure stable. Scheduled for induction at 37 weeks will present 11/10/2024 at 7 AM. Precautions given. NST Reviewed and Verified by: Roberta Barriga
[2024-11-08 14:48] VITALS: BP 132/75; PULSE 105; TEMP 38.8
== END 2024-11-08 14:06 | disposition home health service (06) ==
LOC: BCD 13:27 → OBS 13:30
PROVIDERS: PCP Nurse Practitioner Family; Visit Provider Obstetrics & Gynecology
DX: O13.3 Gestational [pregnancy-induced] hypertension without significant proteinuria, third trimester (principal); Z3A.36 36 weeks gestation of pregnancy
CPT/HCPCS: 59025

== ENCOUNTER 2024-11-09 14:19 | Inpatient (IN) | payer OTHER, BC, SELFPAY ==
[2024-11-09] VITALS (28 sets, daily range): BP systolic 91–146; BP diastolic 55–89; PULSE 64–120; RESP 16–17; TEMP 36.5–36.9; O2SAT 97–99; BMI 32.0
--- NOTE | 2024-11-09 14:21 | ANES.PREOP_ITS ---
General Info Date of Service Date Performed: 11/09/24 Height: 5 ft 6 in Weight: 90 kg Body Mass Index (BMI): 32.0 Meds Allergies and Home Medications Allergies Allergy/AdvReac Type Severity Reaction Status Date / Time sumatriptan (From Imitrex) Allergy Severe Throat Verified 10/06/24 14:46 swelling Pets AdvReac Intermediate Other (See Uncoded 10/06/24 14:46 Comment) Home Medication ?Medication ?Instructions ?Recorded cetirizine 10 mg tablet (Zyrtec) 10 mg PO DAILY PRN al lergy 09/15/21 symptoms #30 tabs vits no.126-ferrous fum tab PO 04/18/24 28 mg iron-folic acid 800 mcg tablet (Classic ) aspirin 81 mg tablet,delayed 162 mg PO DAILY 06/17/24 release (Adult Aspirin Regimen) blood pressure test kit-large #1 ea 09/25/24 ([facility] Blood Pressure Monitor kit) omeprazole 20 mg capsule,delayed 20 mg PO DAILY 30 day s #30 caps 10/16/24 release Current Visit Medications: Current Medications Generic Name Dose Route Start Last Admin Trade Name Freq PRN Reason Stop Dose Admin Ringer's Solution 1,000 mls @ 125 mls/hr 11/09/24 14:30 [facility] Oxytocin/Sodium Chloride 30 unit in 500 mls @ 1 mls/hr 11/09/24 14:30 Pitocin/Normal Saline [facility] Protocol 1 MILLIUNITS/MIN IV Miscellaneous Supplies 1 each 11/09/24 14:30 Iv Access IV DIRECTED AALIYAH Sodium Chloride 0 ml 11/09/24 14:19 Normal Saline Flush 10 Ml Syr IVP PRN PRN Sodium Chloride 0 ml 11/09/24 20:00 Normal Saline Flush 10 Ml Syr IVP BID AALIYAH Sodium Chloride 0 ml 11/09/24 14:19 Normal Saline 10 Ml Vial IJ DIRECTED PRN PFSH Active Problems Active Problems: Problem Status Onset Code Pre-eclampsia Acute O14.90 Chronic hypertension with superimposed preeclampsia Acute O11.9 Essential hypertension Chronic 09/07/17 I10 Anxiety Chronic 05/30/17 F41.9 Acute Z34.90 Medical History Medical History (Updated 11/07/24 @ 00:02 by DUKE HARRIS) contractions History of gestational hypertension History of infertility Complete miscarriage At 4-5 wks from LMP Chondromalacia of left patella Depo-Medrol injection: 01/02/2022 ASCUS with positive high risk HPV Abnormal uterine bleeding (AUB) 2013 Depo 2014 Diagnostic laparoscopy. Seasonique> OCPs>Mirena, 05/2016 Mirena removed. Continuous OCPs 09/2017 formulation of OCPs changed x2. prefers monthly withdrawal bleed. Endometriosis determined by laparoscopy (01/27/16) 01/2015 Dr Lee at [facility]. Fulguration of stage ? 1 peritoneal endometriosis implants. 2016. operative laparoscopy. Fulguration of stage 1 lesions. 06/2016. Continuous active OCPs. Migraine without status migrainosus, not intractable (01/27/16) Mild intermittent asthma without complication (01/27/16) Fever of unknown origin (08/21/17) 2016. Neg w/u for infectious etiology. Sx subsided after 1+ monthss. Asthma does not need inhalers. Headache in pt's PMHx it is described as a migraine. Pelvic pain 2014 had diagnostic laparoscopy - stage 1 endometriosis 02/2016 repeat diagnostic laparoscopy. Nl pelvis, nl fallopian tubes. 05/2016 repeat laparoscopy in [place]. Mild disease. Began continuous OCPs. Medical History Comments:: pt. stated she had asthma attack post anesthesia Surgical History Surgical History (Updated 01/22/24 @ 14:47 by Alma De La Rosa CNM) H/O arthroscopy of left knee (11/15/21) H/O arthroscopy of left knee (~12/2019) tympanostomy 2000. R ear tube removed 2011. proctoscopy 06/29/16 at time of Laparoscopic sacral nerve ablation, removal of peritoneal surfaces of L and R side wall and anterior and posterior cul de sac. Nl Proctoscopy. distal radial - ulna joint surgery 2009 Diagnostic Laproscopy (04/08/14) 04/08/14 Dr. Lee. Dx endometriosis. Review of op note suggests stage 1. Peritoneal implants fulgurated with argon laser. No adhesions. 03/09/16 [facility] Diagnostic laparoscopy for recurrent pelvic pain. Normal pevis. Normal, patent fallopian tubes. 06/29/16 Dr Mccauley laparoscopic presacral neurectomy, excision of peritoneum over L and R sidewall anterior and posterior cul de sac and bilateral ovarian suspension Appendectomy (08/24/02) Tobacco Smoking/Tobacco Use Status: Never Passive smoking exposure: No Alcohol Alcohol Intake: never Details: Does not drink to excess Substance Use Substance use: Never Substance use type: does not use Prental History History 2 3 Para 1 Hx # Term Pregnancies 1 Multiple births Hx # Pregnancies Ectopic pregnancies AB induced Hx Number of Living Children 1 AB spontaneous 1 Past Pregnancies Del. Date GA/Weeks # Preg Succ Route Wgt Sex Labor Lgth Anesth esia Location [facility] 10/18/19 38 No vaginal 3515.[address] [facility] 01/22/24 5 No Delivery Date: 10/18/19 Last Updated by: Alma De La Rosa, SADE Induced due to Gest. HTN/PreEclampsia; Second degree laceration, repaired. Shweta Kahn. slow infant weight gain Vital Signs and Lab Results Lab Results 11/09/24 14:19 11/09/24 14:20 Blood Type / Crossmatch: 2 Antibody Screen NEGATIVE 11/06/24 Complete Blood Count: 2 WBC, (4.4-10.8) 12.33 10^3/uL H 11/05/24, 19:55 RBC, (3.93-5.22) 3.73 10^6/uL L 11/05/24, 19:55 Hgb, (11.2-15.7) 11.0 g/dL L 11/05/24, 19:55 Hct, (36.0-46.0) 32.2 % L 11/05/24, 19:55 Plt Count, (130-400) 229 10^3/uL 11/05/24, 19:55 Complete Metabolic Panel: 2 Sodium, (136-145) 136 mmol/L 11/05/24, 19:55 Potassium, (3.5-5.1) 3.7 mmol/L 11/05/24, 19:55 Chloride, (98-107) 103 mmol/L 11/05/24, 19:55 Carbon Dioxide, (21.0-32.0) 22.1 mmol/L 11/05/24, 19 :55 BUN, (7-18) 7 mg/dL 11/05/24, 19:55 Creatinine, (0.55-1.02) 0.5 mg/dL L 11/05/24, 19:55 Est GFR (CKD-EPI 2020), (mL/min/1.73m2) 127.72 11/05/24, 19:55 Calcium, (8.5-10.1) 8.7 mg/dL 11/05/24, 19:55 Albumin, (3.4-5.0) 2.7 g/dL L 11/05/24, 19:55 Glucose, (74-106) 112 mg/dL H 11/05/24, 19:55 Liver Function Panel: 2 ALT, (14-59) 14 U/L 11/05/24, 19:55 AST, (15-37) 13 U/L L 11/05/24, 19:55 Anesthesia Assessment and Plan Anesthesia History Personal History: Other Family History: No Family History of Anesthesia Complications Exercise Tolerance Exercise Tolerance: Metabolic Equivalents>4 Pertinent Negatives Pertinent Negatives: No Symptoms of GERD Cardiac & Pulmonary Exam Cardiac Exam: Normal S1/S2 Heart Sounds Pulmonary Exam: Clear Bilateral Breath Sounds Implantable Cardiac Device Does patient have a Pacemaker or an ICD?: No Airway Exam Known Difficult Airway: No Mallampati Class: 1 Mouth Opening: Normal (> 3cm) Thyromental Distance: Greater than 3 cm Neck Range of Motion: Full ROM Neck Circumference: Normal Teeth Condition: Normal Dentition ASA Classification ASA Score: ASA 2 Emergency Case?: No NPO Status NPO Status: NPO Small Non-Fatty Meal >6 hours Status Status: Confirmed (Full-term 37 weeks) Anesthesia Plan Resuscitation Status: Full Code Anesthesia Technique: Labor Epidural Airway Planned: Natural Airway Monitors Used: Standard Monitors Preoperative Comments:: (1) Pre-eclampsia: Status: Acute Assessment and plan: Diagnosis based on elevated blood pressures from baseline (though not severe range) and the presence of elevated protein creatinine ratio (0.3-0.4). Preeclampsia labs reassuring this evening including a uric acid and LDH. status is reactive and reassuring. Will initiate a 24-hour urine protein. Discussed prolonged monitoring of blood pressures overnight to which patient is agreeable. Labor Epidural placed in 2019 at [facility] (see record). L3-4. Jillian Xiong CRNA
--- NOTE | 2024-11-09 14:21 | HPE_ITS ---
Date of service: 11/09/24 Time of Service: 14:21 Assessment and Plan Assessment and plan (1) : Status: Acute Assessment and plan: Late at 37 weeks, chronic hypertension with superimposed preeclampsia based on blood pressure elevation and urine protein creatinine ratio. Will have labor induction. Cervix is favorable. Will augment with Pitocin. Check CBC, CMP, type and screen. Anticipate vaginal . Patient desires epidural for pain control. All questions answered. (2) Chronic hypertension with superimposed preeclampsia: Status: Acute (3) Mild intermittent asthma without complication: OB-HPI Labor/Delivery History of Present Illness Reason for Visit: rule out labor Chief Complaint: Scheduled Induction of Labor Indication for Induction: Chronic Hypertension (With superimposed mild preeclampsia at 37 weeks); Signs/Symptoms Gestational HTN , Associated Signs and Symptoms of GestationalHTN: Elevated blood pressure, elevated protein creatinine ratio, mild cephalgia . NELLI Calculator Estimated Delivery Date Method Current WG Current Estimate 11/30/24 Ultrasound #2 37w 0d Other Estimates 11/27/24 LMP (Certain) 37w 3d 11/30/24 Ultrasound #1 37w 0d History of Present Expected Delivery Route/Plan - undecided CNM vs MD DARIA Isidro (second child together) Specific Issues/Plan 1. Chronic HTN with hx superimposed preE w/o SF * Labs persistently stable and WNL outside modestly elevated Prot:Cr (0.3+ to 0.4+) * Baby ASA at 12 wks (stopped taking because BPs were normal - encouraged resumption) * Was on Labetalol 100 mg BID but d/c'd due to headaches. Initiated on Procardia 30 mg XL on 11/05 but never initiated (instructed not to as BP's are labile) * Scheduled for 37 wk IOL for 11/10 2. contractions (36 weeks) * 10/30/2024 GBS neg * Did NOT rcv BMZ (due to 36+ wks and unfavorable cervix) 3. Baby 97%ile @32wk growth sono; 83%ile at her 36wk sono with DEANN 9.84 4. Conceived after one dose of Letrazole 2.5mg, Hx SAB 5wks SMA and CF screen negative, cdDNA low risk female, AFP_ Narrative: Patient is a 34-year-old female 3 para 1 with 1 previous 38-week delivery, vaginal of a 7 pound 12 ounce female. Her is complicated by gestational hypertension versus chronic hypertension with superimposed preeclampsia without severe features. She had been previously on blood pressure medication, trial labetalol, however this made her dizzy. Nifedipine was also causing symptoms. She was noted to have an elevated protein creatinine ratio and the decision was made for labor induction at 37 weeks. She is 37 weeks today. She presents after having a mild headache yesterday which responded to fluid hydration and Tylenol. Baby has been moving and active. We do lengthy conversation, today, and with previous visits regarding late delivery, outcomes which may require respiratory support, feeding support, evaluation of hyperbilirubinemia. She is group B strep negative. 36-week ultrasound showed a baby at the 83rd percentile with an appropriate DEANN, cephalic. She is admitted to the center today with a favorable cervix, and will receive Pitocin augmentation. Informed Consent Informed Consent: Induction of Labor, Regional Anesthesia and Risk,Benefits,Alternatives Discussed Review of Systems All systems reviewed & are unremarkable except as noted in HPI and below Eyes Eyes: Reports as per HPI and Reports system reviewed and no additional complaints, except as documented ENT Ears, Nose, Mouth, and Throat: Reports system reviewed and no additional complaints, except as documented and Reports as per HPI Cardiovascular Cardiovascular: Reports system reviewed and no additional complaints, except as documented, Denies chest pain and Denies irregular heart rhythm Respiratory Respiratory: Reports system reviewed and no additional complaints, except as documented, Denies chest congestion and Denies cough Gastrointestinal Gastrointestinal: Reports system reviewed and no additional complaints, except as documented Genitourinary Genitourinary: Reports system reviewed and no additional complaints, except as documented Neurologic Neurologic: Reports system reviewed and no additional complaints, except as documented PFSH All Active Problems (Updated 11/07/24 @ 00:02 by PCA Audit) Pre-eclampsia (Acute) Chronic hypertension with superimposed preeclampsia (Acute) Essential hypertension (Chronic 09/07/17) Anxiety (Chronic 05/30/17) last time on medication was 2022 (Acute) Medical History (Updated 11/07/24 @ 00:02 by PCA Audit) contractions History of gestational hypertension History of infertility Complete miscarriage At 4-5 wks from LMP Chondromalacia of left patella Depo-Medrol injection: 01/02/2022 ASCUS with positive high risk HPV Abnormal uterine bleeding (AUB) 2013 Depo 2014 Diagnostic laparoscopy. Seasonique> OCPs>Mirena, 05/2016 Mirena removed. Continuous OCPs 09/2017 formulation of OCPs changed x2. prefers monthly withdrawal bleed. Endometriosis determined by laparoscopy (01/27/16) 01/2015 Dr Lee at [facility]. Fulguration of stage ? 1 peritoneal endometriosis implants. 2016. operative laparoscopy. Fulguration of stage 1 lesions. 06/2016. Continuous active OCPs. Migraine without status migrainosus, not intractable (01/27/16) Mild intermittent asthma without complication (01/27/16) Fever of unknown origin (08/21/17) 2016. Neg w/u for infectious etiology. Sx subsided after 1+ monthss. Asthma does not need inhalers. Headache in pt's PMHx it is described as a migraine. Pelvic pain 2014 had diagnostic laparoscopy - stage 1 endometriosis 02/2016 repeat diagnostic laparoscopy. Nl pelvis, nl fallopian tubes. 05/2016 repeat laparoscopy in [place]. Mild disease. Began continuous OCPs. Surgical History (Updated 01/22/24 @ 14:47 by Alma De La Rosa CNM) H/O arthroscopy of left knee (11/15/21) H/O arthroscopy of left knee () tympanostomy 2000. R ear tube removed 2011. proctoscopy 06/29/16 at time of Laparoscopic sacral nerve ablation, removal of peritoneal surfaces of L and R side wall and anterior and posterior cul de sac. Nl Proctoscopy. distal radial - ulna joint surgery 2009 Diagnostic Laproscopy (04/08/14) 04/08/14 Dr. Lee. Dx endometriosis. Review of op note suggests stage 1. Peritoneal implants fulgurated with argon laser. No adhesions. 03/09/16 [facility] Diagnostic laparoscopy for recurrent pelvic pain. Normal pevis. Normal, patent fallopian tubes. 06/29/16 Dr Mccauley laparoscopic presacral neurectomy, excision of peritoneum over L and R sidewall anterior and posterior cul de sac and bilateral ovarian suspension Appendectomy (08/24/02) Family History (Updated 05/16/24 @ 10:09 by Betzy Chow CNM) Mother Diabetes Essential hypertension Hypothyroid Father Essential hypertension Grandmother Diabetes Maternal Aunt Diabetes Maternal Grandfather Heart disease Sister Diabetes Social History (Updated 05/16/24 @ 10:11 by Betzy Chow CNM) Smoking/Tobacco Use Status: Never Smoking risk assessment performed?: Yes Alcohol Intake: never Details: Does not drink to excess Drug use: Never Substance use type: does not use Household members: spouse, significant other and other Details: Dwaine TrentonShanthi fuller Housing: house Number of Children: 1 Education Level: college Do you need help understanding health information?: Never 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, 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 Pets and animals: No Sexually active: Yes Do you think of yourself as: straight/heterosexual Current gender identity: female What type of physical activity do you participate in: aerobic and weight lifting Duration: 30-45 minutes/day Frequency: 3-4 times per week Special fartun needs: No Agree to transfusion: Yes Do you feel safe at home: Yes Do you feel safe in your relationship?: Yes Female Reproductive History Menstrual Age of Menarche: 14 control method: none History History 3 Para 1 Hx # Term Pregnancies 1 Multiple births Hx # Pregnancies Ectopic pregnancies AB induced Hx Number of Living Children 1 AB spontaneous 1 Past Pregnancies Del. Date GA/Weeks # Preg Succ Route Wgt Sex Labor Lgth Anesth esia Location [facility] 10/18/19 38 No vaginal 7 lb 12 oz Female [facility] 01/22/24 5 No Delivery Date: 10/18/19 Last Updated by: Alma De La Rosa CNM Induced due to Gest. HTN/PreEclampsia; Second degree laceration, repaired. Shweta Kahn. slow weight gain Meds Allergies and Home Medications Allergies Allergy/AdvReac Type Severity Reaction Status Date / Time sumatriptan (From Imitrex) Allergy Severe Throat Verified 10/06/24 14:46 swelling Pets AdvReac Intermediate Other (See Uncoded 10/06/24 14:46 Comment) Home Medications ?Medication ?Instructions ?Recorded ?Confirmed ?Type cetirizine 10 mg tablet (Zyrtec) 10 mg PO DAILY PRN nikki gomez 09/15/21 11/09/24 Rx symptoms #30 tabs vits no.126-ferrous fum tab PO 04/18/2411/05 History 28 mg iron-folic acid 800 mcg tablet (Classic ) aspirin 81 mg tablet,delayed 162 mg PO DAILY 06/17/24 11/09/24 History release (Adult Aspirin Regimen) blood pressure test kit-large #1 ea 09/25/24 11/05/24 Rx ([facility] Blood Pressure Monitor kit) omeprazole 20 mg capsule,delayed 20 mg PO DAILY 30 day s #30 caps 10/16/24 11/09/24 Rx release Exam Physical Exam Vital Signs Reviewed: Yes Constitutional Constitutional: no acute distress Detailed Labor and Delivery Exam Dilation: 3 Effacement (%): 50 station: 0 Cervix position: mid Consistency: soft Zavala Score: Cervical Points Exam 0 1 2 3 Dilation Closed 1-2cm 3-4 cm 5-6cm Effacement 0-30% 40-50% 60-70% 80% Consistency Firm Medium Soft Station -3 -2 -1,0 +1,+2 Position Posterior Mid Anterior ZAVALA Score(Cervical Ripeness Score): 8 Amniotic Membrane Status: Intact Monitor Mode: External Contraction Frequency(min): Irregular Fetus A Heart Rate Baseline: 145 Monitor Accelerations: 15 X 15 Monitor Decelerations: None Variability: Moderate (6-25 BPM) Presentation: Cephalic Categories: Category I Est. Weight: 7 lb 8 oz HEENT Exam HEENT Exam: Normal Neck Exam Neck Exam: Normal Chest/Brest/Axilla Exam Chest Exam: Normal Respiratory Exam Respiratory Exam: Normal Cardiovascular Exam Cardiovascular Exam: Normal Abdominal Exam Abdominal Exam: Normal Extremities Exam Extremities Exam: Normal (Minimal lower extremity edema) Back/Spine/Pelvis Exam Pelvis Adequate: Yes Skin Exam Skin Exam: Normal Neurological Exam Neurological Exam: Normal Psychiatric Exam Psychiatric Exam: Normal Risk Assessment Risk for Shoulder Dystocia Historical/Initial OB: NEGATIVE FOR: Pelvic Abnormality, Pre- BMI>30, Previous Shoulder Dystocia or Previous Macrosomia Increased Risk?: No Date/Initial: 11/09/2024 Risk for Pre-Eclampsia Daily Dose ASA Indicated: Yes Yes, if one or more: POSTIVE FOR: Hx Pre-E/Gest HTN and Chronic HTN; NEGATIVE FOR: Multiple Gestation, Pre-gestational DM, Renal Disease, Systemic Lupus or APA Syndrome Yes, if 2 or more: POSITIVE FOR: Nulliparity; NEGATIVE FOR: Age>= 35 yrs, >10yr btwn pregnancies, BMI>30, ethinicty, Mother/Sister w/ Pre-E or Previous IUGR Risk for Post- Hemorrhage Initial: NEGATIVE FOR: Multiple Gestation, Previous PPH, Known Clotting Deficiency, Grand Multiparity or Anticoagulation At Risk?: No Counseled re: Active Management: Yes Date/Initials: JYOTI 11/09/2024 Risks Reviewed Risks Reviewed Upon Admission: Yes
[2024-11-09 14:40] LABS: HCT 33.2 % (36.0-46.0); HGB 11.2 g/dL (11.2-15.7); MCH 29.2 pg (27.0-33.0); MCHC 33.7 % (32.0-36.0); MCV 87 fL (80-95); MPV 10.6 fL (8.0-11.0); Platelet Count 223 10^3/uL (130-400); RBC 3.84 10^6/uL (3.93-5.22); RDW 13.2 % (11.7-14.6); RDW-SD 40.9 fL; WBC 12.88 10^3/uL (4.4-10.8)
[2024-11-09 14:59] LABS: ALT 12 U/L (14-59); AST 12 U/L (15-37); Albumin 2.7 g/dL (3.4-5.0); Alkaline Phosphatase 147 U/L (46-116); Anion Gap 11.5 mmol/L (3-11); BUN 8 mg/dL (7-18); Bilirubin, Total 0.3 mg/dL (0.2-1.0); CO2 22.5 mmol/L (21.0-32.0); Calcium 9.2 mg/dL (8.5-10.1); Chloride 102 mmol/L (98-107); Estimated GFR 127.72 (mL/min/1.73m2); Glucose 85 mg/dL (74-106); Potassium 3.9 mmol/L (3.5-5.1); Sodium 136 mmol/L (136-145); Total Protein 6.7 g/dL (6.4-8.2)
[2024-11-09] MEDS: Normal Saline Flush 10 ML SYR IVP (15:28)
[2024-11-09] MEDS: Lactated Ringers 1,000 ML 125 ML IV (15:47)
[2024-11-09] MEDS: Oxytocin/Normal Saline 30 UNIT/500 ML BAG 1 UNITS IV (15:49)
[2024-11-09] MEDS: Acetaminophen 500 MG TAB 1000 MG PO (18:11)
[2024-11-09] MEDS: FentaNYL/ROPIvacaine 2 mcg/ml and 0.1% 200 ML CADD Cassette EP (18:14)
--- NOTE | 2024-11-09 18:29 | ANES.NEUR_ITS ---
Epidural/Spinal Catheter Date Performed: 11/09/24 Procedure Start: 17:48 Procedure Stop: 18:15 Requesting Provider: Roberta Barriga Procedure Location: Obstetrics Reason Performed: Labor Epidural Standard Monitors Applied: ECG, Blood Pressure, SpO2, ETCO2 and See EMR for corresponding vital signs Patient Position: Sitting Sedation Given (Indicate Dose Given): No Sedation given Patient Mental Status: Awake Sterility: Hand Hygiene, Surgical Cap, Surgical Mask, Sterile Gloves, Sterile Drape/Sheet, Eye Protection and Chlorhexidine Procedure Location: L3-L4 Interspace Epidural Needle: Tuohy 18 Gauge Needle Length: 3.5 Inch Needle Approach: Midline Epidural Procedure: Skin Prepped, Sterile Drape Placed, 1% Lidocaine to skin and subcutaneous tissue with 25G needle, Tuohy Needle placed, LITA to Saline Used, Epidural Catheter Placed, Negative Heme, Negative CSF Flow and Tuohy Needle Removed Catheter Placed?: Catheter Placed Test Dose (Indicate Dose Given): 3ml 1.5% L idocaine with 1:200K Epinephrine Given and Negative Test Dose Loss of Resistance Depth (cm): 6 Catheter depth at skin (cm): 12 Dressing: Sorbaview Dressing Placed, Tegaderm Applied, Mastisol Used and Dressing reinforced with Tape Epidural Provider Bolus (Indicate Dose Given): Total bolus dose given in 3-5 ml divided doses and Total Ropivacaine 0.1% with Fentanyl 2mcg/ml Given from pump. (ml) Dose:: 8cc Additives (Indicate Dose Given ): None Infusion Medication: Medication Infusion Began Medication Infusion: Ropivacaine 0.1% with Fentanyl 2mcg/ml Maintenance Infusion Rate (ml/hour): 12 PCEA Bolus Dose (ml): 5 Post Procedure Pain score (0-10): 0 Block Level: T8 Paresthesia: None Ultrasound: Used to nisreen site Number of Attempts (See previous attempts in note section): 1 Procedure Tolerated: No Complications and Patient tolerated well Procedure Outcome: Successful Performed By: Bam Xiong
--- NOTE | 2024-11-09 19:31 | W.PM.OBNL1 ---
Date of service: 11/09/24 Time of Service: 19:32 Informed Consent Informed Consent: Induction of Labor, Regional Anesthesia and Risk,Benefits,Alternatives Discussed Pelvic Exam Dilation: 3 Effacement (%): 50 Contractions Monitor Mode: External Contraction Frequency(min): Irregular Fetus A Heart Rate Baseline: 135 Presentation: Cephalic Variability: Moderate (6-25 BPM) Categories: Category I Accelerations: 15 X 15 Decelerations: None Assessment and Plan Assessment and plan (1) : Status: Acute Assessment and plan: 3 para 1 with at 37 weeks gestation. Chronic hypertension with superimposed mild preeclampsia. Normal laboratory studies. Epidural for pain control. Pitocin augmentation. Will have artificial rupture of membranes when appropriate. All questions answered. Anticipate vaginal (2) Chronic hypertension with superimposed preeclampsia: Status: Acute Objective Abnormal lab results 11/09/24 Range/Units 14:30 WBC 12.88 H (4.4-10.8) 10^3/uL RBC 3.84 L (3.93-5.22) 10^6/uL Hct 33.2 L (36.0-46.0) % Anion Gap 11.5 H (3-11) mmol/L Creatinine 0.5 L (0.55-1.02) mg/dL AST 12 L (15-37) U/L ALT 12 L (14-59) U/L Alkaline Phosphatase 147 H (46-116) U/L Albumin 2.7 L (3.4-5.0) g/dL Temp Pulse Resp BP Pulse Ox 98.1 F 107 H 16 137/76 98 11/09/24 17:16 11/09/24 18:21 11/09/24 19:00 11/09/24 18:21 11/09/24 17:58 Laboratory Results WBC 12.88 10^3/uL (4.4-10.8) H 11/09/24 14:30 RBC 3.84 10^6/uL (3.93-5.22) L 11/09/24 14:30 Hgb 11.2 g/dL (11.2-15.7) 11/09/24 14:30 Hct 33.2 % (36.0-46.0) L 11/09/24 14:30 MCV 87 fL (80-95) 11/09/24 14:30 MCH 29.2 pg (27.0-33.0) 11/09/24 14:30 MCHC 33.7 % (32.0-36.0) 11/09/24 14:30 RDW 13.2 % (11.7-14.6) 11/09/24 14:30 Plt Count 223 10^3/uL (130-400) 11/09/24 14:30 MPV 10.6 fL (8.0-11.0) 11/09/24 14:30 Sodium 136 mmol/L (136-145) 11/09/24 14:30 Potassium 3.9 mmol/L (3.5-5.1) 11/09/24 14:30 Chloride 102 mmol/L (98-107) 11/09/24 14:30 Carbon Dioxide 22.5 mmol/L (21.0-32.0) 11/09/24 14:30 Anion Gap 11.5 mmol/L (3-11) H 11/09/24 14:30 BUN 8 mg/dL (7-18) 11/09/24 14:30 Creatinine 0.5 mg/dL (0.55-1.02) L 11/09/24 14:30 Est GFR (CKD-EPI 2020) 127.72 (mL/min/1.73m2) 11/09/24 14:30 Glucose 85 mg/dL (74-106) 11/09/24 14:30 Calcium 9.2 mg/dL (8.5-10.1) 11/09/24 14:30 Total Bilirubin 0.3 mg/dL (0.2-1.0) 11/09/24 14:30 AST 12 U/L (15-37) L 11/09/24 14:30 ALT 12 U/L (14-59) L 11/09/24 14:30 Alkaline Phosphatase 147 U/L (46-116) H 11/09/24 14:30 Total Protein 6.7 g/dL (6.4-8.2) 11/09/24 14:30 Albumin 2.7 g/dL (3.4-5.0) L 11/09/24 14:30 ABO/Rh A Positive 11/09/24 14:30 Antibody Screen NEGATIVE 11/09/24 14:30 Subjective Interval history since last seen: Patient seen and examined, labs reviewed. CBC, CMP all within normal range. Patient is comfortable after placement of her epidural. Pitocin was discontinued during the placement of her epidural and now resumed at 2 milliunits. She has a category 1 heart rate tracing and overall feeling well. She did have mild cephalgia which responded well to Tylenol. Results Hemoglobin/Hematocrit: Hgb 11.2 g/dL (11.2-15.7) 11/09/24 14:30 Hct 33.2 % (36.0-46.0) L 11/09/24 14:30 Abnormal Lab Findings: Abnormal Labs 11/09/24 14:30 WBC 12.88 H RBC 3.84 L Hct 33.2 L Anion Gap 11.5 H Creatinine 0.5 L AST 12 L ALT 12 L Alkaline Phosphatase 147 H Albumin 2.7 L
[2024-11-09] MEDS: ePHEDrine 50 MG/ML VIAL IVP (20:56)
[2024-11-10] VITALS (21 sets, daily range): BP systolic 122–167; BP diastolic 74–100; PULSE 83–99; RESP 16–20; TEMP 36.6–36.9; O2SAT 95–99
[2024-11-10] MEDS: Lactated Ringers 1,000 ML 125 ML IV (01:34)
--- NOTE | 2024-11-10 01:36 | PGE_ITS ---
Date of service: 11/10/24 Time of Service: 01:36 Informed Consent Informed Consent: Induction of Labor, Regional Anesthesia and Risk,Benefits,Alternatives Discussed Assessment and Plan Assessment and plan (1) Chronic hypertension with superimposed preeclampsia: Status: Acute Assessment and plan: at 37 weeks and 1 day with chronic hypertension and superimposed preeclampsia. Labor induction for this reason. Pitocin is at 10 milliunits. Will have artificial rupture of membranes when appropriate. Adequate pain control with epidural. All questions answered. (2) Pre-eclampsia: Status: Acute (3) Encounter for induction of labor: Status: Acute Objective Abnormal lab results 11/09/24 Range/Units 14:30 WBC 12.88 H (4.4-10.8) 10^3/uL RBC 3.84 L (3.93-5.22) 10^6/uL Hct 33.2 L (36.0-46.0) % Anion Gap 11.5 H (3-11) mmol/L Creatinine 0.5 L (0.55-1.02) mg/dL AST 12 L (15-37) U/L ALT 12 L (14-59) U/L Alkaline Phosphatase 147 H (46-116) U/L Albumin 2.7 L (3.4-5.0) g/dL Temp Pulse Resp BP Pulse Ox 98.4 F 87 17 126/84 99 11/10/24 00:53 11/10/24 00:53 11/10/24 00:53 11/10/24 00:53 11/10/24 00:53 Laboratory Results WBC 12.88 10^3/uL (4.4-10.8) H 11/09/24 14:30 RBC 3.84 10^6/uL (3.93-5.22) L 11/09/24 14:30 Hgb 11.2 g/dL (11.2-15.7) 11/09/24 14:30 Hct 33.2 % (36.0-46.0) L 11/09/24 14:30 MCV 87 fL (80-95) 11/09/24 14:30 MCH 29.2 pg (27.0-33.0) 11/09/24 14:30 MCHC 33.7 % (32.0-36.0) 11/09/24 14:30 RDW 13.2 % (11.7-14.6) 11/09/24 14:30 Plt Count 223 10^3/uL (130-400) 11/09/24 14:30 MPV 10.6 fL (8.0-11.0) 11/09/24 14:30 Sodium 136 mmol/L (136-145) 11/09/24 14:30 Potassium 3.9 mmol/L (3.5-5.1) 11/09/24 14:30 Chloride 102 mmol/L (98-107) 11/09/24 14:30 Carbon Dioxide 22.5 mmol/L (21.0-32.0) 11/09/24 14:30 Anion Gap 11.5 mmol/L (3-11) H 11/09/24 14:30 BUN 8 mg/dL (7-18) 11/09/24 14:30 Creatinine 0.5 mg/dL (0.55-1.02) L 11/09/24 14:30 Est GFR (CKD-EPI 2020) 127.72 (mL/min/1.73m2) 11/09/24 14:30 Glucose 85 mg/dL (74-106) 11/09/24 14:30 Calcium 9.2 mg/dL (8.5-10.1) 11/09/24 14:30 Total Bilirubin 0.3 mg/dL (0.2-1.0) 11/09/24 14:30 AST 12 U/L (15-37) L 11/09/24 14:30 ALT 12 U/L (14-59) L 11/09/24 14:30 Alkaline Phosphatase 147 U/L (46-116) H 11/09/24 14:30 Total Protein 6.7 g/dL (6.4-8.2) 11/09/24 14:30 Albumin 2.7 g/dL (3.4-5.0) L 11/09/24 14:30 ABO/Rh A Positive 11/09/24 14:30 Antibody Screen NEGATIVE 11/09/24 14:30 Subjective Interval history since last seen: Patient seen. Comfortable with epidural. Introduced to our property insurance claims examiner will be on the floor as I will be off of the unit for a short period of time for care of it separate patient. Patient has Pitocin at 10 milliunits with contractions every 2 to 4 minutes. She has a category 1 heart rate tracing. Blood pressures have remained stable. Will defer cervical examination and increase of Pitocin for the moment and resume with possibility of artificial rupture of membranes when appropriate. Results Hemoglobin/Hematocrit: Hgb 11.2 g/dL (11.2-15.7) 11/09/24 14:30 Hct 33.2 % (36.0-46.0) L 11/09/24 14:30 Abnormal Lab Findings: Abnormal Labs 11/09/24 14:30 WBC 12.88 H RBC 3.84 L Hct 33.2 L Anion Gap 11.5 H Creatinine 0.5 L AST 12 L ALT 12 L Alkaline Phosphatase 147 H Albumin 2.7 L
--- NOTE | 2024-11-10 04:20 | W.PM.OBNL1 ---
Date of service: 11/10/24 Time of Service: 04:20 Informed Consent Informed Consent: Induction of Labor, Regional Anesthesia and Risk,Benefits,Alternatives Discussed Pelvic Exam Dilation: 4 Effacement (%): 60 station: 0 Cervix Position: anterior Consistency: soft Vaginal Exam Presentation: Cephalic Comments: Artificial rupture of membranes, clear fluid. In the ED Contractions Contraction Frequency(min): 3 Fetus A Heart Rate Baseline: 140 Presentation: Cephalic Variability: Moderate (6-25 BPM) Categories: Category I FHR Rhythm: Regular Accelerations: 15 X 15 Decelerations: None Amniotic Membrane Status: Ruptured (4:10 AM, clear) Assessment and Plan Assessment and plan (1) Chronic hypertension with superimposed preeclampsia: Status: Acute Assessment and plan: Blood pressure remained stable. Pitocin augmentation, artificial rupture of membranes for clear fluid. Epidural in place. Anticipate vaginal . (2) Encounter for induction of labor: Status: Acute Objective Abnormal lab results 11/09/24 Range/Units 14:30 WBC 12.88 H (4.4-10.8) 10^3/uL RBC 3.84 L (3.93-5.22) 10^6/uL Hct 33.2 L (36.0-46.0) % Anion Gap 11.5 H (3-11) mmol/L Creatinine 0.5 L (0.55-1.02) mg/dL AST 12 L (15-37) U/L ALT 12 L (14-59) U/L Alkaline Phosphatase 147 H (46-116) U/L Albumin 2.7 L (3.4-5.0) g/dL Temp Pulse Resp BP Pulse Ox 98.4 F 99 H 17 122/78 99 11/10/24 00:53 11/10/24 02:53 11/10/24 00:53 11/10/24 02:53 11/10/24 00:53 Laboratory Results WBC 12.88 10^3/uL (4.4-10.8) H 11/09/24 14:30 RBC 3.84 10^6/uL (3.93-5.22) L 11/09/24 14:30 Hgb 11.2 g/dL (11.2-15.7) 11/09/24 14:30 Hct 33.2 % (36.0-46.0) L 11/09/24 14:30 MCV 87 fL (80-95) 11/09/24 14:30 MCH 29.2 pg (27.0-33.0) 11/09/24 14:30 MCHC 33.7 % (32.0-36.0) 11/09/24 14:30 RDW 13.2 % (11.7-14.6) 11/09/24 14:30 Plt Count 223 10^3/uL (130-400) 11/09/24 14:30 MPV 10.6 fL (8.0-11.0) 11/09/24 14:30 Sodium 136 mmol/L (136-145) 11/09/24 14:30 Potassium 3.9 mmol/L (3.5-5.1) 11/09/24 14:30 Chloride 102 mmol/L (98-107) 11/09/24 14:30 Carbon Dioxide 22.5 mmol/L (21.0-32.0) 11/09/24 14:30 Anion Gap 11.5 mmol/L (3-11) H 11/09/24 14:30 BUN 8 mg/dL (7-18) 11/09/24 14:30 Creatinine 0.5 mg/dL (0.55-1.02) L 11/09/24 14:30 Est GFR (CKD-EPI 2020) 127.72 (mL/min/1.73m2) 11/09/24 14:30 Glucose 85 mg/dL (74-106) 11/09/24 14:30 Calcium 9.2 mg/dL (8.5-10.1) 11/09/24 14:30 Total Bilirubin 0.3 mg/dL (0.2-1.0) 11/09/24 14:30 AST 12 U/L (15-37) L 11/09/24 14:30 ALT 12 U/L (14-59) L 11/09/24 14:30 Alkaline Phosphatase 147 U/L (46-116) H 11/09/24 14:30 Total Protein 6.7 g/dL (6.4-8.2) 11/09/24 14:30 Albumin 2.7 g/dL (3.4-5.0) L 11/09/24 14:30 ABO/Rh A Positive 11/09/24 14:30 Antibody Screen NEGATIVE 11/09/24 14:30 Subjective Interval history since last seen: Patient seen and examined. Pitocin is at 9. Uterine contractions every approximately 3 minutes. Comfortable with epidural. Consent for artificial rupture of membranes. Results Hemoglobin/Hematocrit: Hgb 11.2 g/dL (11.2-15.7) 11/09/24 14:30 Hct 33.2 % (36.0-46.0) L 11/09/24 14:30 Abnormal Lab Findings: Abnormal Labs 11/09/24 14:30 WBC 12.88 H RBC 3.84 L Hct 33.2 L Anion Gap 11.5 H Creatinine 0.5 L AST 12 L ALT 12 L Alkaline Phosphatase 147 H Albumin 2.7 L
[2024-11-10] MEDS: Acetaminophen 500 MG TAB 1000 MG PO ×2 (07:56→17:00)
[2024-11-10] MEDS: FentaNYL/ROPIvacaine 2 mcg/ml and 0.1% 200 ML CADD Cassette EP (07:57)
--- NOTE | 2024-11-10 08:48 | W.OBDELIVERY ---
Date of service: 11/10/24 Time of Service: 08:48 OB Labor/ Delivery Information Baby A Delivery Delivery Method: Spontaneaous Presentation: Cephalic Vertex Position: Right Occipital Transverse Quantitative Blood Loss: 100 Delivery Outcome: Liveborn Note: Patient had a strong urge to push with significant pelvic pressure. Sterile vaginal exam revealed cervix that is completely dilated, vertex on the perineum. Patient was positioned appropriately, and with 1 push, vertex delivered over her perineum. There was evidence of nuchal cord x 1 which was easily reduced. Shoulders followed without difficulty. Three-vessel cord was noted, clamped x 2, after appropriate delay. And the baby was delivered to the mom's chest. Cord blood sample was obtained. The placenta delivered spontaneously and was found to be intact. On inspection of the perineum, cervix, and vagina there was noted to be a small second-degree perineal laceration at the midline. This was oversewn with a single stitch of 3-0 Vicryl suture and hemostasis achieved. Uterus is firm and 3 cm below the umbilicus. She received IV Pitocin for uterine tonicity. Both mom and baby are in stable condition in the recovery phase. Labor/Delivery Information Group Beta Strep: Negative Rubella Status: Immune Blood Type: A+ Varicella Immunity: Immune Stages of Labor ROM Baby A: 11/10/24 ROM Baby A: 04:03
[2024-11-10] MEDS: Ibuprofen 600 MG TAB PO ×2 (13:47→20:15)
[2024-11-10] MEDS: Hamamelis Leaf/Glycerin 100 EACH BOX PR (13:48)
[2024-11-10] MEDS: Dibucaine 1% 28 GM TUBE TP (13:48)
--- NOTE | 2024-11-10 14:05 | ANES.POST_ITS ---
Postoperative Evaluation Date, Time and Location Date Performed: 11/10/24 Time Performed: 14:05 Patient Location: Obstetrics Vital Signs Most Recent Imported Vital Signs: Most Recent Vital Signs Temp Pulse Resp BP Pulse Ox 36.9 C 94 H 18 149/87 H 98 11/10/24 12:30 11/10/24 12:30 11/10/24 12:30 11/10/24 12:30 11/10/24 12:30 Pain Score Most Recent Pain Score: Most Recent Pain Score Pain Level [Abdomen] 5 11/09/24 17:16 Pain Level 0 11/10/24 00:00 Assessment Mental Status: Awake (Alert & Oriented to Patient Baseline) Airway and Respiratory Function: Patent airway with normal (patient baseline) respiratory exam Cardiovascular Function: Hemodynamically Stable Hydration Status: Adequately Hydrated Nausea & Vomiting: No Nausea or Vomiting Pain: Pain is tolerable per patient (Heat pack on lower back. Patient denies any numbness and heat pack is comfortable) Peripheral Nerve Block: Other (Epidural completely resolved. ) Postoperative Comments:: Reports diffuse back pain over top of hips in low back. Patient educated to expected pain from an epidural, I do not believe this is from the epidural but possibly from her prior back labor, or possibly from positioning during delivery. I have asked her to reach out to anesthesia for any progressive numbness symptoms or worsening pain with best option to access us through calling the [facility].
[2024-11-10] MEDS: Docusate Sodium 100 MG CAP PO (20:33)
[2024-11-10] MEDS: Acetaminophen 325 MG TAB 650 MG PO (21:39)
[2024-11-10] MEDS: NIFEdipine-CR 30 MG TABCR PO (21:40)
[2024-11-11 01:40] VITALS: BP 125/72; PULSE 90; TEMP 36.6
[2024-11-11] MEDS: Acetaminophen 325 MG TAB 650 MG PO ×2 (05:35→10:23)
[2024-11-11 05:38] VITALS: BP 138/84
[2024-11-11 06:21] LABS: HCT 31.2 % (36.0-46.0); HGB 10.3 g/dL (11.2-15.7); MCH 28.7 pg (27.0-33.0); MCHC 33.0 % (32.0-36.0); MCV 87 fL (80-95); MPV 10.8 fL (8.0-11.0); Platelet Count 210 10^3/uL (130-400); RBC 3.59 10^6/uL (3.93-5.22); RDW 13.2 % (11.7-14.6); RDW-SD 42.0 fL; WBC 10.72 10^3/uL (4.4-10.8)
--- NOTE | 2024-11-11 07:27 | W.PM.OBPNV1 ---
Date of service: 11/11/24 Time of Service: 07:28 Assessment and Plan Assessment and plan (1) Chronic hypertension with superimposed preeclampsia: Status: Acute Assessment and plan: BP stable (2) Normal spontaneous vaginal delivery: Status: Resolved Assessment and plan: Post day #1 -Doing well. D/C home. Short interval follow up, 24-48 hours for BP check Subjective Subjective Interval history: Patient seen and examined, doing well. Mild elevated in blood pressure without symptoms. Lochia is physiologic. Pain is well controlled Patient comments: No complaints, Pain well controlled and Other (desires D/C today) Patient's Mood: Appropriate Donnelly baby status: Doing well, Nursing well and Strong Bonding Observed Donnelly feeding status: Exclusively breast feeding Exam Physical Exam Vital signs: Temp Pulse Resp BP Pulse Ox 97.8 F 90 17 138/84 99 11/11/24 01:40 11/11/24 01:40 11/10/24 20:30 11/11/24 05:38 11/10/24 20:30 Vital Signs Reviewed: Yes Notable Details: Mild BP elevation Constitutional Constitutional: no acute distress HEENT Exam HEENT Exam: Normal Respiratory Exam Respiratory Exam: Normal Cardiovascular Exam Cardiovascular Exam: Normal Fundal Exam Fundus: Below Umbilicus and Firm Extremities Exam Extremity Exam: Normal; negative Calf Tenderness or Edema Skin Exam Skin Exam: Normal Neurological Exam Neurological Exam: Normal Psychiatric Exam Psychiatric Exam: Normal Results Hemoglobin/Hematocrit: Hgb 10.3 g/dL (11.2-15.7) L 11/11/24 06:19 Hct 31.2 % (36.0-46.0) L 11/11/24 06:19 Abnormal Lab Findings: Abnormal Labs 11/09/24 11/11/24 14:30 06:19 WBC 12.88 H RBC 3.84 L 3.59 L Hgb 10.3 L Hct 33.2 L 31.2 L Anion Gap 11.5 H Creatinine 0.5 L AST 12 L ALT 12 L Alkaline Phosphatase 147 H Albumin 2.7 L
[2024-11-11 08:20] VITALS: BP 136/92; PULSE 94; RESP 16; TEMP 36.6; O2SAT 99
--- NOTE | 2024-11-11 08:46 | DSE_ITS ---
Date of service: 11/11/24 Time of Service: 08:47 DS: Diagnosis Discharge Diagnosis (1) Chronic hypertension with superimposed preeclampsia: Status: Acute Asessment and Plan: Monitor BP. Report > 150/90. BP check in person in 24-48 hours (2) Normal spontaneous vaginal delivery: Status: Resolved Asessment and Plan: D/C home, follow up in 24 hours, 1 week, 2 weeks, 6 weeks Discharge Plan Disposition Patient Disposition: Home Condition: Good Discharge Details Reason For Visit: Pre-e at 37 weeks Admit Date/Time: 11/09/24 14:19 Admit Provider: Roberta Barriga Attending Provider: Roberta Barriga Primary Care Provider: KATHERIN CEE Hospital Course Hospital Course: Patient was admitted for labor induction at 37 weeks due to worsening BP and cephalgia. She had pitocin induction with early epidural. She had artificial rupture of membranes and progressed to complete. She had an uncomplicated vaginal of a viable female with APGARS 8 and 9 and a qualitative blood loss of 100ml. She had an uncomplicated post course and dischared to home post day #1 with close interval follow up Home Meds and New Rx's Prescriptions: No Action cetirizine [Zyrtec] 10 mg tablet 10 mg PO DAILY PRN (Reason: allergy symptoms) Qty: 30 3RF Classic 28 mg iron- 800 mcg tablet PO omeprazole 20 mg capsule,delayed release(DR/EC) 20 mg PO DAILY 30 Days Qty: 30 1RF aspirin [Adult Aspirin Regimen] 81 mg tablet,delayed release (DR/EC) 162 mg PO DAILY (DME) blood pressure test kit-large [[facility]ocate Blood Pressure Monitr] Kit See Rx Instructions .Route Qty: 1 0RF Rx Instructions: As directed- twice daily test Discharge Instructions Additional Instructions: Follow up for blood pressure check in 24-48 hours. Daily blood pressure check at home and report any BP of greater that 150/90 Activity:: Pelvic Rest Equipment/Supplies:: No Equipment Needed Diet:: As Tolerated Discharge Orders Discharge Orders: Discharge Order (Routine); Ordered 11/11/24 Ordered By: Roberta Barriga OB:DS Summary Summary Vaginal Delivery Method: Spontaneaous Episiotomy Description: None Laceration Description: Perineal Laceration Extension: Second Degree Contraception Discussed Contraception Discussed: Yes, Gender-Baby A: Female weight: 7 lb 8.461 oz Status at Discharge Functional status at discharge: independent ambulation Overall status at discharge: patient is progressing back to baseline Mental Status: mental status grossly normal Speech and Movement: speech and movement normal Mood: congruent mood Affect: normal affect Quality:SDOH Health Related Social Needs: Health related social needs risk of homeless Health related social needs details None Health related social needs details: None Exam Physical Exam Vital signs: Temp Pulse Resp BP Pulse Ox 97.9 F 94 H 16 136/92 H 99 11/11/24 08:20 11/11/24 08:20 11/11/24 08:20 11/11/24 08:20 11/11/24 08:20 PFSH All Active Problems (Updated 11/11/24 @ 07:59 by Roberta Barriga DO) Encounter for induction of labor (Acute) Pre-eclampsia (Acute) Chronic hypertension with superimposed preeclampsia (Acute) Essential hypertension (Chronic 09/07/17) Anxiety (Chronic 05/30/17) last time on medication was 2022 (Acute) Medical History (Updated 11/11/24 @ 07:59 by Roberta Barriga DO) contractions History of gestational hypertension History of infertility Complete miscarriage At 4-5 wks from LMP Chondromalacia of left patella Depo-Medrol injection: 01/02/2022 ASCUS with positive high risk HPV Abnormal uterine bleeding (AUB) 2013 Depo 2014 Diagnostic laparoscopy. Seasonique> OCPs>Mirena, 05/2016 Mirena removed. Continuous OCPs 09/2017 formulation of OCPs changed x2. prefers monthly withdrawal bleed. Endometriosis determined by laparoscopy (01/27/16) 01/2015 Dr Lee at [facility]. Fulguration of stage ? 1 peritoneal endometriosis implants. 2017. operative laparoscopy. Fulguration of stage 1 lesions. 06/2016. Continuous active OCPs. Migraine without status migrainosus, not intractable (01/27/16) Mild intermittent asthma without complication (01/27/16) Fever of unknown origin (08/21/17) 2016. Neg w/u for infectious etiology. Sx subsided after 1+ monthss. Asthma does not need inhalers. Headache in pt's PMHx it is described as a migraine. Pelvic pain 2014 had diagnostic laparoscopy - stage 1 endometriosis 02/2016 repeat diagnostic laparoscopy. Nl pelvis, nl fallopian tubes. 05/2016 repeat laparoscopy in [place]. Mild disease. Began continuous OCPs. Surgical History (Updated 01/22/24 @ 14:47 by Alma De La Rosa CNM) H/O arthroscopy of left knee (11/15/21) H/O arthroscopy of left knee () tympanostomy 2000. R ear tube removed 2011. proctoscopy 06/29/16 at time of Laparoscopic sacral nerve ablation, removal of peritoneal surfaces of L and R side wall and anterior and posterior cul de sac. Nl Proctoscopy. distal radial - ulna joint surgery 2009 Diagnostic Laproscopy (04/08/14) 04/08/14 Dr. Lee. Dx endometriosis. Review of op note suggests stage 1. Peritoneal implants fulgurated with argon laser. No adhesions. 03/09/16 [facility] Diagnostic laparoscopy for recurrent pelvic pain. Normal pevis. Normal, patent fallopian tubes. 06/29/16 Dr Mccauley laparoscopic presacral neurectomy, excision of peritoneum over L and R sidewall anterior and posterior cul de sac and bilateral ovarian suspension Appendectomy (08/24/02) Family History (Updated 05/16/24 @ 10:09 by Betzy Chow CNM) Mother Diabetes Essential hypertension Hypothyroid Father Essential hypertension Grandmother Diabetes Maternal Aunt Diabetes Maternal Grandfather Heart disease Sister Diabetes Social History (Updated 05/16/24 @ 10:11 by Betzy Chow CNM) Smoking/Tobacco Use Status: Never Smoking risk assessment performed?: Yes Alcohol Intake: never Details: Does not drink to excess Drug use: Never Substance use type: does not use Household members: spouse, significant other and other Details: Shanthi Mota Housing: house Number of Children: 1 Education Level: college Do you need help understanding health information?: Never 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, 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 Pets and animals: No Sexually active: Yes Do you think of yourself as: straight/heterosexual Current gender identity: female What type of physical activity do you participate in: aerobic and weight lifting Duration: 30-45 minutes/day Frequency: 3-4 times per week Special fartun needs: No Agree to transfusion: Yes Do you feel safe at home: Yes Do you feel safe in your relationship?: Yes Female Reproductive History Menstrual Age of Menarche: 14 control method: none History History 3 Para 1 Hx # Term Pregnancies 1 Multiple births Hx # Pregnancies Ectopic pregnancies AB induced Hx Number of Living Children 1 AB spontaneous 1 Past Pregnancies Del. Date GA/Weeks # Preg Succ Route Wgt Sex Labor Lgth Anesth esia Location [facility] 10/18/19 38 No vaginal 7 lb 12 oz Female matt Barriga 01/22/24 5 No Delivery Date: 10/18/19 Last Updated by: Alma De La Rosa CNM Induced due to Gest. HTN/PreEclampsia; Second degree laceration, repaired. Shweta Kahn. slow infant weight gain DS: Data Vitals/I&O Vitals and I&O: Vital Signs Temperature 97.9 F 11/11/24 08:20 Temperature Source Oral 11/11/24 08:20 Pulse 94 H 11/11/24 08:20 Pulse Rhythm Regular 11/11/24 08:20 Respiratory Rate 16 11/11/24 08:20 Respiratory Depth Normal 11/10/24 20:43 Blood Pressure 136/92 H 11/11/24 08:20 Blood Pressure Mean 106 11/11/24 08:20 Pulse Oximetry 99 11/11/24 08:20 Oxygen Delivery Method Room Air 11/09/24 14:33 Oxygen Flow Rate 0 11/09/24 14:33 Pain Level 3 11/10/24 17:00 Comment aware of BP. said to give time for IBprofin to kick in and retake pressure.. 11/10/24 20:30 Intake & Output 11/10/24 11/10/24 11/11/24 11:59 23:59 11:59 Intake Total 1066.183 / 1066.183 Output Total 1915 / 2415 500 / 2415 Balance -848.817 / -1348.817 -500 / -1348.817 Intake: IV 1066.183 / 1066.183 Output: Urine 1775 / 2275 500 / 2275 Blood 140 / 140 Other: Urine Color Yellow Yellow Urine Appearance Clear Urine Odor None Comment pt voids independently Data Completed and Pending Labs on day of discharge: Labs from last 24 hours 11/11/24 06:19 WBC 10.72 RBC 3.59 L Hgb 10.3 L Hct 31.2 L MCV 87 MCH 28.7 MCHC 33.0 RDW 13.2 Plt Count 210 MPV 10.8
[2024-11-11 10:15] VITALS: BP 144/98
[2024-11-11] MEDS: NIFEdipine-CR 30 MG TABCR PO (10:23)
[2024-11-11] MEDS: Ibuprofen 600 MG TAB PO (12:34)
== END 2024-11-11 12:45 | disposition home or self-care (01) | DRG 806 ==
PROVIDERS: Admitting Provider Obstetrics & Gynecology; PCP Nurse Practitioner Family; Visit Provider Obstetrics & Gynecology
DX: O11.4 Pre-existing hypertension with pre-eclampsia, complicating childbirth (principal); O99.354 Diseases of the nervous system complicating childbirth; Z37.0 Single live birth; J45.20 Mild intermittent asthma, uncomplicated; Z3A.37 37 weeks gestation of pregnancy; O99.52 Diseases of the respiratory system complicating childbirth; O69.81X0 Labor and delivery complicated by cord around neck, without compression, not applicable or unspecified; O70.1 Second degree perineal laceration during delivery; N80.30 Endometriosis of pelvic peritoneum, unspecified; O75.89 Other specified complications of labor and delivery; G43.909 Migraine, unspecified, not intractable, without status migrainosus
CPT/HCPCS: 36415; 80053; 85027; 86850; 86900; 86901; J0665; J1100; J2405

== ENCOUNTER 2024-11-12 07:20 | Outpatient (CLI) | payer OTHER, BC, SELFPAY ==
[2024-11-12 10:25] VITALS: BP 136/88
== END 2024-11-12 10:58 ==
LOC: BCD 08:44 → OBS 10:32
PROVIDERS: PCP Nurse Practitioner Family; Visit Provider Obstetrics & Gynecology
DX: O13.5 Gestational [pregnancy-induced] hypertension without significant proteinuria, complicating the puerperium
CPT/HCPCS: 99211